=== PATIENT | male | born 1960 | race African-American/Black ===

== ENCOUNTER 2016-09-24 15:59 | Emergency (ER) | payer MEDICAID ==
[2016-09-24 16:48] LABS: BASOPHILS 0.1 % (0.0-2.0); HEMOGLOBIN 9.8 g/dL (13.5-17.5); IMMATURE GRANULOCYTES 0.2 % (0-5); LYMPHOCYTES 20.1 % (15-50); MCH 24.6 pg (26.0-34.0); MCHC 32.7 g/dL (31.0-37.0); MCV 75.4 fL (80.0-100.0); MEAN PLATELET VOLUME 11.9 fL (7.4-10.4); MONOCYTES 8.3 % (2-11); NEUTROPHILS 69.3 % (40-80); PLATELET COUNT 259 10x3/uL (130-400); RBC 3.98 10x6/uL (4.20-6.10); RDW 16.1 % (11.5-14.5); WBC 9.5 10x3/uL (4.8-10.8)
[2016-09-24 17:09] LABS: ALBUMIN 2.8 g/dL (3.4-5.0); ALKALINE PHOSPHATASE 90 U/L (46-116); ALT (SGPT) 68 U/L (10-68); CALC OSMOLALITY 291 mosm/kg (275-300); CALCIUM 9.2 mg/dL (8.5-10.1); CARBON DIOXIDE 27.6 mmol/L (21.0-32.0); CHLORIDE - SERUM 110 mmol/L (98-107); GLUCOSE 108 mg/dL (74-106); SODIUM 146 mmol/L (136-145); UREA NITROGEN 13 mg/dL (7-18); eGFR NON AFRICAN AMERICAN 81 mL/min (90-120)
[2016-09-24 17:14] LABS: POTASSIUM - SERUM 2.9 mmol/L (3.5-5.1)
[2016-11-15 10:29] VITALS: BMI 26.5
== END 2016-09-24 18:20 | disposition home or self-care (01) ==
LOC: D.ER 15:59
PROVIDERS: Emergency Medicine
DX: R41.82 Altered mental status, unspecified (principal); E87.6 Hypokalemia; E88.9 Metabolic disorder, unspecified; I10 Essential (primary) hypertension; E11.9 Type 2 diabetes mellitus without complications; Z79.4 Long term (current) use of insulin

== ENCOUNTER 2016-10-11 17:53 | Observation (INO) | payer MEDICAID ==
[~2016-10-11] VITALS: Ht 180.3 cm; Wt 74.8 kg
[2016-10-11 18:38] LABS: BASOPHILS 0.1 % (0.0-2.0); EOSINOPHILS 0.7 % (0-7); HEMATOCRIT 27.9 % (42.0-54.0); HEMOGLOBIN 8.7 g/dL (13.5-17.5); IMMATURE GRANULOCYTES 0.1 % (0-5); LYMPHOCYTES 17.7 % (15-50); MCH 24.4 pg (26.0-34.0); MCHC 31.2 g/dL (31.0-37.0); MCV 78.4 fL (80.0-100.0); MONOCYTES 5.6 % (2-11); NEUTROPHILS 75.8 % (40-80); RBC 3.56 10x6/uL (4.20-6.10); RDW 18.5 % (11.5-14.5); WBC 8.5 10x3/uL (4.8-10.8)
[2016-10-11 18:39] LABS: PLATELET COUNT 195 10x3/uL (130-400)
[2016-10-11 18:55] LABS: BILIRUBIN - TOTAL 0.2 mg/dL (0.2-1.3); CALCIUM 9.5 mg/dL (8.5-10.1); CARBON DIOXIDE 23.1 mmol/L (21.0-32.0); CREATININE - SERUM 1.5 mg/dL (0.6-1.3); POTASSIUM - SERUM 5.1 mmol/L (3.5-5.1); PROTEIN - SERUM 7.9 g/dL (6.4-8.2)
[2016-10-11 20:30] LABS: APPEARANCE CLEAR (CLEAR); BILIRUBIN NEGATIVE (NEGATIVE); COLOR YELLOW (YELLOW); GLUCOSE NEGATIVE (NEGATIVE); KETONE NEGATIVE (NEGATIVE); LEUKOCYTE ESTERASE NEGATIVE (NEGATIVE); NITRITE NEGATIVE (NEGATIVE); PROTEIN NEGATIVE (NEGATIVE); SPECIFIC GRAVITY 1.015 (1.005-1.020); UROBILINOGEN NORMAL (NORMAL)
[2016-10-11 20:37] LABS: UDS - AMPHET NEGATIVE QUAL (NEGATIVE); UDS - BARB NEGATIVE QUAL (NEGATIVE); UDS - BENZO NEGATIVE QUAL (NEGATIVE); UDS - COCAINE NEGATIVE QUAL (NEGATIVE); UDS - METH NEGATIVE QUAL (NEGATIVE); UDS - OPIATE NEGATIVE QUAL (NEGATIVE); UDS - PCP NEGATIVE QUAL (NEGATIVE); UDS - THC NEGATIVE QUAL (NEGATIVE)
[2016-10-11 22:07] LABS: % SATURATION 15 % (15-55); IRON 59 ug/dl (35-150); TOTAL IRON BIND CAPACITY 370 ug/dl (260-445); UNSAT IRON BIND CAPACITY 311 ug/dl (150-375)
--- NOTE | 2016-10-12 00:20 | NUR ---
REC'D PER STRETCHER FROM ER DEPT A 56 Y/O B/M TO ROOM 2230 PER SERVICES WITH DX. ALTERED MENTAL STATUS CHANGES.SALINE LOCK PATENT RT ARM. PLACED ON BED ALARM BOX. SR UP X2.RESPONDS TO VERBAL STIMULI CONFUSED. WILL NOT FOLLOW COMMANDS CLOSES EYES WHEN QUESTIONS ASKED.
[2016-10-12 01:19] VITALS: BP 152/101; BMI 23.0
--- NOTE | 2016-10-12 02:00 | NUR ---
EYES CLOSED RESPIRATIONS WITH EASE AND UNLABORED.
[2016-10-12] MEDS ORDERED: HYDRALAZINE HCL50 MG PO (02:01)
[2016-10-12] MEDS ORDERED: ZYPREXA5 MG PO (02:02)
[2016-10-12] MEDS ORDERED: CATAPRES TTS-20.2 MG TOPICAL (02:03)
[2016-10-12] MEDS ORDERED: FLOMAX0.4 MG PO (02:04)
[2016-10-12] MEDS ORDERED: [UNRECOGNIZED DRUG - OTHER] (02:05)
[2016-10-12] MEDS ORDERED: NORVASC10 MG PO (02:06)
[2016-10-12] MEDS ORDERED: ISOSORBIDE MONO30 M1 PO (02:06)
[2016-10-12] MEDS ORDERED: PLAVIX75 MG PO (02:07)
[2016-10-12] MEDS ORDERED: LUMIGAN 0.01%2.5 ML EACH EYE (02:08)
[2016-10-12] MEDS ORDERED: GLUCOPHAGE1000 MG PO (02:08)
[2016-10-12] MEDS ORDERED: PRAVACHOL40 MG PO (02:09)
--- NOTE | 2016-10-12 03:30 | NUR ---
NS STARTED AT 75CC'S/HR
[2016-10-12 04:00] VITALS: BP 149/58
[2016-10-12 05:36] LABS: BASOPHILS 0.1 % (0.0-2.0); EOSINOPHILS 1.5 % (0-7); HEMATOCRIT 26.5 % (42.0-54.0); HEMOGLOBIN 8.6 g/dL (13.5-17.5); IMMATURE GRANULOCYTES 0.1 % (0-5); LYMPHOCYTES 24.3 % (15-50); MCH 25.1 pg (26.0-34.0); MCHC 32.5 g/dL (31.0-37.0); MCV 77.3 fL (80.0-100.0); MONOCYTES 7.2 % (2-11); NEUTROPHILS 66.8 % (40-80); PLATELET COUNT 183 10x3/uL (130-400); RBC 3.43 10x6/uL (4.20-6.10); RDW 18.5 % (11.5-14.5); WBC 8.6 10x3/uL (4.8-10.8)
--- NOTE | 2016-10-12 06:00 | NUR ---
BLOOD GLUCOSE WITH LAB =83 NO COVERAGE NEEDED.
[2016-10-12 06:27] LABS: CALCIUM 9.9 mg/dL (8.5-10.1); CARBON DIOXIDE 23.6 mmol/L (21.0-32.0); POTASSIUM - SERUM 4.6 mmol/L (3.5-5.1)
[2016-10-12 06:34] LABS: CREATININE - SERUM 1.1 mg/dL (0.6-1.3)
[2016-10-12 08:13] VITALS: BP 177/59
--- NOTE | 2016-10-12 09:30 | NUR ---
PATIENT UP TO SHOWER BY PROJECT LEADER AT THIS TIME. CALL LIGHT WITHIN REACH.
--- NOTE | 2016-10-12 11:45 | NUR ---
IV RESTARTED BY STUDENT AND INSTRUCTOR AT THIS TIME X 1 STICK. PATIENT TOLERATED WITH SMALL AMOUNT OF PAIN. CALL LIGHT WITHIN REACH.
[2016-10-12 12:18] VITALS: BP 158/71
[2016-10-12 13:16] VITALS: Ht 180.3 cm; Wt 74.8 kg
--- NOTE | 2016-10-12 14:53 | NUR ---
PATIENT PULLED CATHETER OUT. BULB STILL INFLATED. RED URINE TO PAD ON BED. PATIENT CONFUSED AND STATED THAT HE WAS GOING TO KILL ME WHEN HE GETS OUT OF HERE. IV INTACT. CALL LIGHT WITHIN REACH.
--- NOTE | 2016-10-12 15:14 | NUR ---
PATIENT REFUSES VS AT THIS TIME.
--- NOTE | 2016-10-12 16:20 | NUR ---
PATIENT PULLED IV OUT AGAIN. REFUSED FOR IT TO BE RESTARTED. CALL LIGHT WITHIN REACH.
[2016-10-12 19:00] VITALS: BP 144/77
[2016-10-12 19:11] LABS: ANION GAP 15.4 mmol/L (8-16); CALCIUM 9.1 mg/dL (8.5-10.1); CARBON DIOXIDE 24.4 mmol/L (21.0-32.0); CREATININE - SERUM 1.2 mg/dL (0.6-1.3); POTASSIUM - SERUM 4.8 mmol/L (3.5-5.1)
[2016-10-13 04:00] VITALS: BP 149/74
[2016-10-13 06:55] LABS: BASOPHILS 0.2 % (0.0-2.0); EOSINOPHILS 2.1 % (0-7); HEMATOCRIT 25.6 % (42.0-54.0); HEMOGLOBIN 8.1 g/dL (13.5-17.5); IMMATURE GRANULOCYTES 0.2 % (0-5); LYMPHOCYTES 33.2 % (15-50); MCH 24.4 pg (26.0-34.0); MCHC 31.6 g/dL (31.0-37.0); MCV 77.1 fL (80.0-100.0); MONOCYTES 7.6 % (2-11); NEUTROPHILS 56.7 % (40-80); PLATELET COUNT 167 10x3/uL (130-400); RBC 3.32 10x6/uL (4.20-6.10); RDW 18.2 % (11.5-14.5); WBC 6.6 10x3/uL (4.8-10.8)
[2016-10-13 07:05] LABS: ALBUMIN 3.1 g/dL (3.4-5.0); ANION GAP 14.1 mmol/L (8-16); BILIRUBIN - TOTAL 0.24 mg/dL (0.2-1.3); CALCIUM 9.6 mg/dL (8.5-10.1); CARBON DIOXIDE 24.9 mmol/L (21.0-32.0); CREATININE - SERUM 1.1 mg/dL (0.6-1.3); PROTEIN - SERUM 7.8 g/dL (6.4-8.2)
[2016-10-13 08:50] VITALS: BP 157/68
[2016-10-13] MEDS ORDERED: LIBRIUM25 MG PO (11:30)
--- NOTE | 2016-10-13 13:28 | NUR ---
Patient Name: FIDE ATWOOD Admission Status: ER Accout number: [id number] Admission Date: 10-11-2016 : 1960 Admission Diagnosis: Attending: GAYLE Current LOS: 2 Anticipated DC Date: 10-13-2016 Planned Disposition: Home Primary Insurance: MEDICAID [place] Discharge Planning Comments: CM MET WITH PATIENT AND HIS MOM (CYNDI) REGARDING HIS PLANS FOR DISCHARGE AND NEEDS. PATIENT STATED HE HAD THE SHAKES BEFORE COMING TO HOSPITAL. MOTHER STATED HE HAS HAD PROBLEMS WITH SUGAR BEFORE. HOME HEALTH WAS AT HIS HOME DURING HIS SPELL AND RECOMMENDED COMING TO HOSPITAL. PATIENTS PCP IS DR. MOORE AND PHARMACY IS [facility]. PATIENT IS CURRENT WITH [facility] WITH PHYSICAL THERAPY. MOTHER STATES SHE COOKS FOR HER SON DAILY AND IS THERE WITH HIM DURING HIS MEALS. MOTHER STATED HE HAS STOPPED DRINKING FOR 3 MONTHS NOW. INFORMATION REGARDING TREATMENT FACILITIES FOR ALCOHOL WAS GIVEN TO MOTHER AND SHE APPRECIATED IT STATING "I WILL TAKE THESE JUST IN CASE I MIGHT NEED THEM." CM WILL CONTINUE TO FOLLOW PATIENT WITH D/C NEEDS AND PLANS. PCP DR[facility] TER[facility] [phone] CYNID (LES) [phone] Match Maker: Rebecca Darden Is the patient Alert and Oriented? Yes 0 * How many steps to enter\\exit or inside your home? 3 0 * PCP DR. MOORE 0 * Pharmacy [facility] 0 * Preadmission Environment Home Alone 0 * ADLs Independent 0 * Equipment Walker 0 * List name and contact numbers for known caregivers / representatives who currently or will assist patient after discharge: CYNDI PARKER) [phone] 0 * Community resources currently utilized None 0 * Additional services required to return to the preadmission environment? No 0 * Can the patient safely return to the preadmission environment? Yes 0 * Has this patient been hospitalized within the prior 30 days at any hospital? Yes 0 Grand Total: 0
--- NOTE | 2016-10-13 13:29 | NUR ---
DISCHARGE PAPER AND INSTRUCTIONS GIVEN TO PATIENT AND SPOUSE, QUESTIONS ANSWERED, DISCHARGED PER WC WITH BELONGINGS
== END 2016-10-13 13:31 | disposition home or self-care (01) ==
LOC: D.ER 17:53 → D.MS 21:36 → OBSVTIME 21:36 → D.MS 21:36
PROVIDERS: Emergency Medicine; ADMIT Family Medicine Adult Medicine
DX: R41.82 Altered mental status, unspecified (principal); F10.20 Alcohol dependence, uncomplicated; M54.9 Dorsalgia, unspecified; Z91.19 Patient's noncompliance with other medical treatment and regimen; I10 Essential (primary) hypertension; I25.10 Atherosclerotic heart disease of native coronary artery without angina pectoris; F17.200 Nicotine dependence, unspecified, uncomplicated; E87.0 Hyperosmolality and hypernatremia; D64.9 Anemia, unspecified; E11.65 Type 2 diabetes mellitus with hyperglycemia; Z79.4 Long term (current) use of insulin; N28.9 Disorder of kidney and ureter, unspecified

== ENCOUNTER 2016-11-14 12:15 | Inpatient (IN) | payer MEDICAID ==
[~2016-11-14] VITALS: Ht 180.3 cm; Wt 78.6 kg
[~2016-11-14 12:15] MED LIST: CATAPRES TTS-20.2 MG TOPICAL; FLOMAX0.4 MG PO; GLUCOPHAGE1000 MG PO; HYDRALAZINE HCL50 MG PO; ISOSORBIDE MONO30 M1 PO; LIBRIUM25 MG PO; LUMIGAN 0.01%2.5 ML EACH EYE; NORVASC10 MG PO; PLAVIX75 MG PO; PRAVACHOL40 MG PO; ZYPREXA5 MG PO; [UNRECOGNIZED DRUG - OTHER]
[2016-11-14 12:53] LABS: BASOPHILS 0.1 % (0.0-2.0); EOSINOPHILS 2.1 % (0-7); HEMOGLOBIN 8.1 g/dL (13.5-17.5); IMMATURE GRANULOCYTES 0.2 % (0-5); MCH 24.8 pg (26.0-34.0); MCHC 31.2 g/dL (31.0-37.0); MCV 79.5 fL (80.0-100.0); MONOCYTES 4.4 % (2-11); NEUTROPHILS 74.2 % (40-80); PLATELET COUNT 173 10x3/uL (130-400); RBC 3.27 10x6/uL (4.20-6.10); RDW 20.1 % (11.5-14.5)
[2016-11-14 13:18] LABS: ALBUMIN 3.1 g/dL (3.4-5.0); ALKALINE PHOSPHATASE 135 U/L (46-116); ALT (SGPT) 25 U/L (10-68); BILIRUBIN - TOTAL 0.16 mg/dL (0.2-1.3); CALC OSMOLALITY 304 mosm/kg (275-300); CALCIUM 9.2 mg/dL (8.5-10.1); CARBON DIOXIDE 20.7 mmol/L (21.0-32.0); CREATININE - SERUM 1.4 mg/dL (0.6-1.3); GLUCOSE 116 mg/dL (74-106); POTASSIUM - SERUM 5.4 mmol/L (3.5-5.1); PROTEIN - SERUM 7.3 g/dL (6.4-8.2); SODIUM 151 mmol/L (136-145); UREA NITROGEN 24 mg/dL (7-18); eGFR NON AFRICAN AMERICAN 55 mL/min (90-120)
[2016-11-14 13:20] LABS: ALCOHOL - BLOOD (MEDICAL) < 3.0 mg/dL (0.0-10.0); CHLORIDE - SERUM 120 mmol/L (98-107)
[2016-11-14 15:36] LABS: APPEARANCE CLEAR (CLEAR); BILIRUBIN NEGATIVE (NEGATIVE); COLOR YELLOW (YELLOW); GLUCOSE NEGATIVE (NEGATIVE); KETONE NEGATIVE (NEGATIVE); LEUKOCYTE ESTERASE NEGATIVE (NEGATIVE); NITRITE NEGATIVE (NEGATIVE); PROTEIN NEGATIVE (NEGATIVE); SPECIFIC GRAVITY 1.015 (1.005-1.020); UROBILINOGEN NORMAL (NORMAL)
[2016-11-14 15:48] LABS: UDS - AMPHET NEGATIVE QUAL (NEGATIVE); UDS - BARB NEGATIVE QUAL (NEGATIVE); UDS - BENZO POSITIVE QUAL (NEGATIVE); UDS - COCAINE NEGATIVE QUAL (NEGATIVE); UDS - METH NEGATIVE QUAL (NEGATIVE); UDS - OPIATE NEGATIVE QUAL (NEGATIVE); UDS - PCP NEGATIVE QUAL (NEGATIVE); UDS - THC NEGATIVE QUAL (NEGATIVE)
--- NOTE | 2016-11-14 18:32 | NUR ---
RECEIVED REPORT FROM ER NURSE. PT HAS CONSULT FOR [facility]. FAXED CONSULT DOWN TO DETENTION
--- NOTE | 2016-11-14 18:53 | NUR ---
Patient Name: FIDE QUAN Admission Status: ER Accout number: [id number] Admission Date: 11-14-2016 : 1960 Admission Diagnosis: Hypernatremia, AMS Attending: MALVIN Current LOS: 1 Anticipated DC Date: 11-17-2016 Planned Disposition: Retirement Facility Primary Insurance: MEDICAID [place] Discharge Planning Comments: Cm spoke to patient's mother due to AMS of patient. Patient mother reports patient has been very confused for the past week or so. He has been weak and not able to care for himself for the past 4 months now. She goes to his home every am to get him up out of bed, fixes his breakfast, stays till he takes a nap then comes back and stays with him till he goes to bed at night. She stated the patient is not able to care for himself and needs placement in the prison. Patient currently has [facility] for nursing and PT. CM informed her that case management could help her with this. She will call and speak to case management on Tuesday. CM will continue to follow and will assist with dc plans/needs. Farm Crew Member: Zenaida Fox RN, [facility] [phone] Is the patient Alert and Oriented? No * How many steps to enter\exit or inside your home? three * PCP Dr. Gould * Pharmacy [facility] * Preadmission Environment Home with Family * ADLs Partial Dependent * Partial ADLs (Assistance needed) Bathing Dressing Medication Management * Equipment Rolling Walker * List name and contact numbers for known caregivers / representatives who currently or will assist patient after discharge: Amy Quan - mother - [phone] * Community resources currently utilized Home Health * Please name any agencies selected above. [facility] * Additional services required to return to the preadmission environment? Yes * Can the patient safely return to the preadmission environment? No * Has this patient been hospitalized within the prior 30 days at any hospital? No
--- NOTE | 2016-11-14 18:55 | NUR ---
PT TO ROOM VIA WHEELCHAIR. SEVERELY CONFUSED. DEREK MAT ON
--- NOTE | 2016-11-14 18:57 | NUR ---
PT IS SEVERLY CONFUSED. QUICK START DONE. PT IS NOT AWARE OF ANY MEDICATION HE IS ON.
[2016-11-14 18:58] VITALS: BP 128/57
[2016-11-15] VITALS (7 sets, daily range): BP systolic 126–147; BP diastolic 46–80; Ht 180.3 cm; Wt 78.6 kg
--- NOTE | 2016-11-15 00:30 | NUR ---
BOBBIN COLLECTOR AT BEDSIDE FOR VS. NEEDS ADDRESSED AT THIS TIME. CALL LIGHT IN REACH. WILL CONT TO MONITOR.
[2016-11-15 06:01] LABS: BASOPHILS 0.1 % (0.0-2.0); HEMATOCRIT 26.9 % (42.0-54.0); HEMOGLOBIN 8.4 g/dL (13.5-17.5); IMMATURE GRANULOCYTES 0.1 % (0-5); LYMPHOCYTES 23.9 % (15-50); MCH 24.6 pg (26.0-34.0); MCHC 31.2 g/dL (31.0-37.0); MCV 78.7 fL (80.0-100.0); MONOCYTES 5.4 % (2-11); NEUTROPHILS 67.5 % (40-80); PLATELET COUNT 166 10x3/uL (130-400); RBC 3.42 10x6/uL (4.20-6.10); RDW 20.3 % (11.5-14.5); WBC 7.2 10x3/uL (4.8-10.8)
[2016-11-15 06:13] LABS: ANION GAP 15.7 mmol/L (8-16); CALCIUM 9.2 mg/dL (8.5-10.1); CARBON DIOXIDE 21.3 mmol/L (21.0-32.0); CREATININE - SERUM 1.1 mg/dL (0.6-1.3)
--- NOTE | 2016-11-15 12:00 | NUR ---
PT SITTING UP IN BED EATING LUNCH. PT IS PLEASANTLY CONFUSED. PT STATES "I THINK IM AT HOME WITH MY GIRLFRIEND YULISSA" REORIENTED PT TO PLACE AND SITUATION. PT VERBALIZED UNDERSTANDING AND DENIES ANY FURTHER NEEDS. CL IN REACH, BUILT IN BED ALARM ON. WILL CPOC.
[2016-11-15 14:17] LABS: % SATURATION 12 % (15-55); IRON 43 ug/dl (35-150); TOTAL IRON BIND CAPACITY 358 ug/dl (260-445); UNSAT IRON BIND CAPACITY 315 ug/dl (150-375)
[2016-11-15 16:27] LABS: HEMATOCRIT 24.5 % (42.0-54.0); HEMOGLOBIN 7.8 g/dL (13.5-17.5)
--- NOTE | 2016-11-15 16:59 | NUR ---
Patient Name: FIDE ATWOOD Encounter No: [id number] : 1960 Primary Insurance: MEDICAID [facility] DC Date: 11-17-2016 Planned Disposition: [facility] Facility External Planned Provider: [facility], MEDICAID SKILLED NURSING CARE BED DCP follow-up note: CM MET WITH PT IN ROOM TO DISCUSS DISCHARGE NEEDS AND PLANNING. PT INITIALLY REPORTS BEING INDEPENDENT AT HOME WITH NO ASSISTANCE. PT REPORTED NEVER BEING IN A SHELTER FACILITY. PT REPORTS HIS GIRLFRIEND, JOSE, LIVES WITH HIM. PT REPORTS PLAN TO GO HOME. CM EXPLAINED TO PT THAT HE HAS BEEN VERY CONFUSED AND THAT IS NOT A SAFE PLAN. PT REPORTS HIS MOTHER HELPS HIM TO MAKE DECISIONS AND DIRECTED CM TO CALL HER. LILIANE CALLED CYNDI ANGELIC, , FROM PT'S ROOM. CYNDI REPORTS PT DOES LIVE ALONE AT NIGHT AND SHE HAS BEEN STAYING WITH PT DURING THE DAY. PT HAS CONTROL OF HIS CHECK AND ONCE HE GETS PAID, HE DRAWS OUT HIS MONEY AND GIVES TO CYNDI TO PAY HIS BILLS. PT HAS BEEN STAYING ALONE AT NIGHT BUT HAS RECENTLY BEEN UNABLE TO REMEMBER WHERE THE BATHROOM IS AT IN THE HOUSE AND WOULD CLAIM HE IS NOT AT HIS HOUSE WHEN HE WAS. CYNDI DOES NOT FEEL THAT PT IS SAFE TO LIVE HOME ALONE ANY LONGER. PT WAS IN [facility] IN JULY OF 2016, WAS HAPPY WITH HIS CARE FOR ONE MONTH AND THEN DECIDED TO GO HOME. PT HAS NOT SUFFERED WITH SEIZURES, HAS NO KNOWN MENTAL ILLNESS NOR HAS HE RECEIVED SERVICES OR BEEN DIAGNOSED MENTALLY RETARDED. PT ASKED FOR REFERRAL TO BE SENT TO [facility]ADE TO [facility] IF HE HAS BEEN THERE BEFORE HIS MOTHER STATES. CHOICE SIGNED. CM CALLED [facility], , PROVIDED REFERRAL TO MING ROMERO. CM FAXED REFERRAL TO TRADE TO [facility] AT [phone]. CM WAITING ADMISSION DETERMINATION FROM [facility] REGARDING SKILLED NURSING CARE FOR PT. Brooks Guillen, CASE MANAGEMENT
--- NOTE | 2016-11-15 17:01 | NUR ---
PTS HGB 7.8. HERE AND GAVE VERBAL ORDER FOR 2 UNITS OF PRBCS. WILL GET CONSENTS AND CONTINUE WITH ORDER.
--- NOTE | 2016-11-15 18:30 | NUR ---
INITIATED PTS BLOOD TRANSFUSION. VSS AND BEING MONITERED Q15MIN PER PROTOCOL. BLOOD TRANSFUSING VIA R.FA PIV WITH DRSG CDI AND SWAB CAPS IN USE. NO REACTION NOTED WITH FIRST 15 MINS OF BLOOD TRANSFUSION. PT DENIES ANY CURRENT PAIN OR NEEDS. CL IN REACH, BED IN LOWEST, SIDE RAILS X2, WILL CPOC.
--- NOTE | 2016-11-15 19:11 | NUR ---
SPOKE WITH AND HE IS AWARE OF CONSULT. SHIFT REPORT GIVEN TO NIGHT NURSE, NO FURTHER NEEDS.
--- NOTE | 2016-11-15 19:45 | NUR ---
ASSESSMENT COMPLETE, PT ALERT, ORIENTED TO NAME. RESPERATIONS EVEN AND UNLABORED. IV TO RIGHT FOREARM WITH PRBCs INFUSING. SITE CLEAN AND DRY. VITALS STABLE. WILL CONT TO MONITOR.
--- NOTE | 2016-11-15 21:05 | NUR ---
CARD FEEDER AT BED SIDE, PT INCONTINENT OF URINE. BATH AND LINEN CHANGE COMPLETE. REPOSITIONED IN BED FOR COMFORT.
--- NOTE | 2016-11-15 21:35 | NUR ---
HS MEDS GIVEN WITH FRESH ICE WATER. BS 118, NO COVERAGE NEEDED. PRBCS INFUSING, VITALS STABLE. NO S/S ADVERSE REACTION NOTED.
--- NOTE | 2016-11-15 22:15 | NUR ---
PRBCS FINISHED INFUSING, LINE FLUSHING WITH NS, VITALS STABLE. NO S/S ADVERSE REACTIONS NOTED.
--- NOTE | 2016-11-15 23:54 | NUR ---
SECOND UNIT OF PRBCs INFUSING, VITALS STABLE.
[2016-11-16] VITALS: BP 133/71
--- NOTE | 2016-11-16 01:04 | NUR ---
RESTING WITH EYES CLOSED, RESPERATIONS EVEN, NO S/S DISTRESS NOTED.
--- NOTE | 2016-11-16 02:48 | NUR ---
SECOND UNIT OF PRBCs FINISHED INFUSING, VITALS STABLE. NO S/S ADVERSE REACTIONS NOTED.
[2016-11-16 04:00] VITALS: BP 146/63
[2016-11-16 04:36] LABS: HEMATOCRIT 29.2 % (42.0-54.0)
[2016-11-16 04:47] LABS: HEMOGLOBIN 9.9 g/dL (13.5-17.5)
[2016-11-16 05:16] LABS: ALBUMIN 2.9 g/dL (3.4-5.0); ANION GAP 15.8 mmol/L (8-16); BILIRUBIN - TOTAL 0.63 mg/dL (0.2-1.3); CALCIUM 9.1 mg/dL (8.5-10.1); CARBON DIOXIDE 21.4 mmol/L (21.0-32.0); CREATININE - SERUM 1.1 mg/dL (0.6-1.3); POTASSIUM - SERUM 5.2 mmol/L (3.5-5.1); PROTEIN - SERUM 7.2 g/dL (6.4-8.2)
--- NOTE | 2016-11-16 06:01 | NUR ---
GROCERY DEPARTMENT MANAGER MEDS GIVEN WITH FRESH WATER. PT TOLERATED WELL.
[2016-11-16 07:47] VITALS: BP 129/65
[2016-11-16 08:21] LABS: FOLATE (FOLIC ACID) - SERUM 2.9 ng/mL (>3.0)
--- NOTE | 2016-11-16 08:41 | NUR ---
SL PT TO LEAVE FOR MRI. PT DENIES ANY CURRENT PAIN OR NEEDS. CL IN REACH. WILL CPOC.
--- NOTE | 2016-11-16 09:24 | NUR ---
PT BACK FROM MRI AND TRANSFERRED INTO BED. DENIES ANY CURRENT PAIN OR NEEDS. CL IN REACH, BED IN LOWEST, SIDE RAILS X2. WILL CPOC.
[2016-11-16 11:06] VITALS: BP 128/62
--- NOTE | 2016-11-16 11:40 | NUR ---
Patient Name: FIDE ATWOOD Encounter No: [id number] : 1960 Primary Insurance: MEDICAID [place] Anticipated DC Date: 11-17-2016 Planned Disposition: [facility] Facility External Planned Provider: [facility], [facility] MEDICAID BED DCP follow-up note: CM MET WITH MING ROMERO OF [facility] AT NURSES STATION; MING HAS MET WITH PT AND THEY ARE IN PROCESS OF EVALUATING PT AND CONSIDERING FOR ADMISSION FOR TECHNICAL PUBLICATIONS MANAGER CARE AT [facility]. MING WILL NEED LAB RESULTS WHEN RECEIVED REGARDING STAPH. CM WAITING LAB RESULTS AND WILL FAX TO [facility] UPON COMPLETION. CM WAITING ADMISSION DETERMINATION FROM [facility] FOR TECHNICAL PUBLICATIONS MANAGER CARE. Brooks Guillen, CASE MANAGEMENT
--- NOTE | 2016-11-16 12:21 | NUR ---
PTS MOTHER AT BEDSIDE VISITING. PT EATING LUNCH. NO CURRENT NEEDS. WILL CPOC.
--- NOTE | 2016-11-16 13:06 | NUR ---
PT PULLED OUT IV FOR A THIRD TIME. HAMILTON ORTIZ APN VERBALLY GAVE OKAY TO LEAVE PIV OUT FOR NOW.
[2016-11-16 14:07] LABS: HEMATOCRIT 31.3 % (42.0-54.0); HEMOGLOBIN 10.6 g/dL (13.5-17.5)
[2016-11-16 16:12] VITALS: BP 108/56
--- NOTE | 2016-11-16 16:32 | NUR ---
PT ATTEMPTED GETTING OOB STATING "GET THIS BLOOD ITS NOT MY BLOOD" CHANGED LINENS R/T A DROP OF BLOOD FROM WHERE HE PULLED HIS IV OUT EARLIER. PT STILL PLEASANTLY CONFUSED HOWEVER PULLED HAND AWAY AND REFUSED FSBS.
[2016-11-17] VITALS (13 sets, daily range): BP systolic 116–171; BP diastolic 49–86
[2016-11-17 06:16] LABS: RAPID PLASMA REAGIN Non Reactive (Non Reactive)
--- NOTE | 2016-11-17 06:50 | NUR ---
MEDITECH DOWN THROUGHOUT THE NIGHT, SEE PAPER NARRATIVE.
[2016-11-17 07:45] LABS: HEMATOCRIT 29.5 % (42.0-54.0)
[2016-11-17 08:09] LABS: ALBUMIN 2.9 g/dL (3.4-5.0); ALKALINE PHOSPHATASE 126 U/L (46-116); ALT (SGPT) 20 U/L (10-68); BILIRUBIN - TOTAL 0.36 mg/dL (0.2-1.3); CALC OSMOLALITY 284 mosm/kg (275-300); CALCIUM 9.6 mg/dL (8.5-10.1); CARBON DIOXIDE 23.9 mmol/L (21.0-32.0); CHLORIDE - SERUM 111 mmol/L (98-107); CREATININE - SERUM 0.8 mg/dL (0.6-1.3); GLUCOSE 89 mg/dL (74-106); POTASSIUM - SERUM 4.8 mmol/L (3.5-5.1); PROTEIN - SERUM 7.3 g/dL (6.4-8.2); SODIUM 143 mmol/L (136-145); UREA NITROGEN 14 mg/dL (7-18); eGFR NON AFRICAN AMERICAN > 90 mL/min (90-120)
--- NOTE | 2016-11-17 09:00 | NUR ---
BUSINESS QUALITY ASSURANCE ANALYST NOTIFIED ME THAT SHE WASNT ABLE TO GET PATIENTS TEMPERATURE. UPON ASSESSING PT HE IS ICE COLD TO THE TOUCH. RECTAL TEMP ATTEMPTED BUT READ "TOO LOW" VS 143/60 HR 40 TELEMETRY APPLIED AND RUNNING SINUSBRADY. DEL THORNE APPLIED AND PAGED. 20 GUAGE PIV INSERTED INTO THE R.HAND. PTS BEEN CONFUSED SO MENTAL STATUS IS VERY HARD TO DISTINGUISH FROM BASELINE OR IF THIS IS BASELINE. WILL CTM CLOSELY.
[2016-11-17 09:11] LABS: BASOPHILS 0.2 % (0.0-2.0); EOSINOPHILS 1.6 % (0-7); LYMPHOCYTES 26.7 % (15-50); MCH 26.5 pg (26.0-34.0); MCHC 33.6 g/dL (31.0-37.0); MCV 78.9 fL (80.0-100.0); MONOCYTES 4.2 % (2-11); NEUTROPHILS 67.3 % (40-80); RBC 3.74 10x6/uL (4.20-6.10); RDW 19.6 % (11.5-14.5); WBC 6.2 10x3/uL (4.8-10.8)
[2016-11-17 09:13] LABS: PLATELET COUNT 109 10x3/uL (130-400)
--- NOTE | 2016-11-17 10:01 | NUR ---
STAT ORDERS GIVEN AND ORDERED IN COMPUTER. GETTING EKG AND LAB NOW. PT STILL RESTING IN BED QUIETLY DENIES ANY CURRENT PAIN OR NEEDS.
--- NOTE | 2016-11-17 10:10 | NUR ---
STILL UNABLE TO GET A RECTAL TEMP EVEN AFTER DELNereida THORNE ON PT. TEMPORAL READING 95.4. CALLED AND HE IS AWARE BUT IS THINKING ITS A FALSE READING. CALLED [facility]ENTRAL FOR STAT GLASS THERMOMETER AND WILL HAVE SOMEONE ELSE HELP ASSESS PT AND TRY TO GET ACCURATE TEMP.
[2016-11-17 10:48] LABS: CKMB 1.7 U/L (0.0-3.6); CREATINE KINASE 55 UL (21-232)
--- NOTE | 2016-11-17 10:49 | NUR ---
RECTAL TEMP 89.3 CHECKED X2 WITH CHARGE NURSE.
[2016-11-17 10:56] LABS: TROPONIN-I 0.192 ng/mL (0.000-0.060)
[2016-11-17 11:12] LABS: INR 1.02 (0.85-1.17); PROTIME 13.3 SECONDS (11.6-15.0)
[2016-11-17 11:13] LABS: APTT 42.2 SECONDS (22.8-39.4)
--- NOTE | 2016-11-17 11:29 | NUR ---
HAMILTON ORTIZ GAVE VERBAL ORDERS TO TRANSFER PT TO ICU. CALLED CARD PLACER FOR A BED, AWAITING PLACEMENT.
[2016-11-17 11:35] LABS: T4 THYROXINE 7.3 ug/dL (4.7-13.3); THYROID STIMULATING HORMONE 8.68 uIU/mL (0.36-3.74)
--- NOTE | 2016-11-17 11:57 | NUR ---
PATIENT ARRIVED TO THE FLOOR VIA BED TO ROOM 2303 BUT WAS THEN MOVED TO 2307 SECONDARY TO ISOLATION STATUS, FROM MED 2. HE WAS ALERT. ORIENTED TO NAME ONLY. PATIENT REQUIRED MOMENTS TO THINK BEFORE HE WAS ABLE TO ANSWER QUESTIONS. PLACED A 16FR CRITICORE MACEDO PER ORDERS. INITIAL CORE TEMP WAS 31.7 C OR 89.4 F. RECEIVED 123CC OF CLEAR YELLOW URINE. PATIENT WAS PLACE UNDER BEAR HUGGER. WILL MONITOR TEMP. LUNGS CTA, DIMINISHED TO BILATERAL BASES. BOWEL SOUNDS ARE NORMAL ACTIVE. PATIENT DID NOT ANSWER WHEN QUESTIONED ABOUT LAST BOWEL MOVEMENT. PATIENT IS BRADYCARDIC, HYPERTENSIVE. SATS ARE 97% ON ROOM AIR. SKIN LOOKS GOOD. PLACED IN CONTACT ISOLATION SECONDARY TO MRSA IN BLOOD. WAITING ON LAB TO COME AND DRAW ANOTHER SET OF BLOOD CULTURES.
--- NOTE | 2016-11-17 12:39 | NUR ---
Patient Name: FIDE ATWOOD Encounter No: [id number] : 1960 Primary Insurance: MEDICAID [facility] DC Date: 11-19-2016 Planned Disposition: Care Home Facility External Planned Provider: [facility] or [facility], intermediate care Medicaid bed DCP follow-up note: CM RECEIVED CALL FROM MING [facility], , WHO ADVISED THEY CANNOT ACCEPT PT THEY DO NOT HAVE ANY SNF CARE BEDS. CM SPOKE TO PT IN ROOM PRIOR TO LUNCH, ADVISED OF ABOVE, PT REPORTS NO PREFERENCE ON SKILLED FACILITY, WOULD LIKE TO REMAIN IN [place] IF POSSIBLE. CM [facility]ED [email or web address], , NOTIFIED OF NEED FOR SNF PLACEMENT; CM FAXED REFERRAL TO MAIKOL AT [phone]. CM WAITING ADMISSION DETERMINATIONS FROM [facility], [facility] AND [facility] [employer] [facility] FOR VISUAL BASIC DEVELOPER CARE. Brooks Guillen, CASE MANAGEMENT
--- NOTE | 2016-11-17 13:43 | NUR ---
SECONDARY TO JUST GETTING VANCOMYCIN STARTED DUE TO WAITING ON BLOOD CULTURES TO BE DRAWN, SPOKE WITH CRISTINO IN PHARMACY, HE WILL RETIME THE ZOSYN.
[2016-11-17 16:26] LABS: HEMATOCRIT 29.4 % (42.0-54.0); HEMOGLOBIN 9.6 g/dL (13.5-17.5)
--- NOTE | 2016-11-17 16:33 | CN ---
PATIENT NAME:FIDE ATWOOD MEDICAL RECORD: [id number] : [birth year] LOCATION:[id number] ADMIT DATE: 11/14/16 ACCOUNT: [id number] CONSULTING PHYSICIAN: DARLIN MEJÍA MD REFERRING PHYSICIAN: LAINE POTTER MD DATE OF CONSULTATION: 11/15/2016 Consultation Note IDENTIFYING DATA: The patient is 56 years old and he is admitted to the hospital on a voluntary basis. CHIEF COMPLAINT: Altered mental status. HISTORY OF PRESENT ILLNESS: The patient is clearly very impaired. There is little in the way of longitudinal history or records except for an admission a month ago for similar reasons. There is a questionable history of alcohol abuse that is ongoing and a definitive history of alcohol abuse remotely. Supposedly, the patient has family, who live with him, but no one is there at the time of the interview. The patient is trying to be cooperative, but clearly is very impaired. He is hyponatremic, but not in a manner that I would think would cause this situation. Basic laboratory and radiographic findings are negative. ASSESSMENT: Dementia type, uncertain. PLAN: The patient is impaired and I do not see an acute reason forth. I suspect there may be some ongoing substance abuse or alcohol use, but it is very difficult to know exactly how much. I think the patient would benefit from being followed by neurology. I also would say that whatever process is going on unless it is substance-induced, does not appear to be acute. administrative services director should be involved to assist with placement of the patient since in his current situation, he cannot manage independent living. TRANSINT:[id number] Voice Confirmation ID: [id number] DOCUMENT ID: [id number] DARLIN MEJÍA MD at 1633 CC: [id number] DICTATION DATE: 11/15/161939 MEMBERSHIP SALES REPRESENTATIVE: 11/16/16 0106 ADM IN [facility] [address] [place] [address]
--- NOTE | 2016-11-17 17:13 | NUR ---
PATIENT WAS OFF FROM UNDER THE BEAR HUGGER FOR AROUND 10 MINUTES OR SO AND HIS CRITICOR TEMP WAS 94.6 WHEN THIS NURSE ENTERED THE ROOM. PREVIOUS TEMP AT 1630 WAS 96.2. WILL WATCH CLOSER.
--- NOTE | 2016-11-17 19:00 | NUR ---
REPORT RECEIVED AND ASSESSMENT COMPLETED. SEE FLOWSHEET FOR FULL DETAILS. VSS. WILL CONTINUE TO MONITOR.
--- NOTE | 2016-11-17 21:00 | NUR ---
NO CHANGES IN STATUS AT THIS TIME. VSS. WILL MONITOR. PT TEMP 97.[address]. PT VERY CONFUSED. C/O A "LITTLE FELLER" BEHIND HIS BACK. AFRAID TO LAY DOWN BECAUSE HE DOES NOT WANT TO HURT HIM
--- NOTE | 2016-11-17 23:00 | NUR ---
REASSESSMENT COMPLETED. SEE FLOWSHEET. VSS. WILL MONITOR
[2016-11-18] VITALS (23 sets, daily range): BP systolic 107–163; BP diastolic 47–95
--- NOTE | 2016-11-18 01:12 | NUR ---
NO CHANGES IN STATUS AT THIS TIME. VSS. WILL MONITOR
--- NOTE | 2016-11-18 03:00 | NUR ---
REASSESSMENT COMPLETED. SEE FLOWSHEET FOR FULL DETAILS. PT CONTINUES TO BE CONFUSED AND ATTEMPTS TO REMOVE TELEMETRY AND BEAR HUGGER. SAYS HE NEED THE SCISSORS TO CUT THE TAPE OFF OF HIS LEGS ( THERE IS NO TAPE PRESENT) AND THAT THERE ARE BAKERS STUCK BEHIND HIM IN BED. PT ABLE TO STATE NAME AND BIRTHDAY BUT NO OTHER DETAILS IN REGARD TO LOCATION, FAMILY, OR SITUATION.
[2016-11-18 04:13] LABS: BASOPHILS 0.1 % (0.0-2.0); EOSINOPHILS 0.9 % (0-7); HEMATOCRIT 29.6 % (42.0-54.0); HEMOGLOBIN 9.9 g/dL (13.5-17.5); IMMATURE GRANULOCYTES 0.2 % (0-5); LYMPHOCYTES 13.2 % (15-50); MCH 26.5 pg (26.0-34.0); MCHC 33.4 g/dL (31.0-37.0); MCV 79.1 fL (80.0-100.0); MONOCYTES 4.6 % (2-11); PLATELET COUNT 117 10x3/uL (130-400); RBC 3.74 10x6/uL (4.20-6.10)
[2016-11-18 04:21] LABS: WBC 10.5 10x3/uL (4.8-10.8)
[2016-11-18 04:31] LABS: ALBUMIN 2.9 g/dL (3.4-5.0); ANION GAP 15.1 mmol/L (8-16); BILIRUBIN - TOTAL 0.46 mg/dL (0.2-1.3); CARBON DIOXIDE 23.5 mmol/L (21.0-32.0); POTASSIUM - SERUM 4.6 mmol/L (3.5-5.1); PROTEIN - SERUM 7.2 g/dL (6.4-8.2)
[2016-11-18 04:36] LABS: CREATININE - SERUM 1.1 mg/dL (0.6-1.3)
--- NOTE | 2016-11-18 05:09 | NUR ---
Patient resting in bed with eyes open watching TV, breathing is even and unlabored on room air. Denies pain or other needs at this time, all VSS and will continue to monitor.
--- NOTE | 2016-11-18 09:26 | NUR ---
PT AWAKE AND CONFUSED, HAS PULLED GOWN AND BS MONITORING OFF. REPLACED EQUIP AND POSITIONED FOR BREAKFAST 45 DEG UP IN BED. TEMP 98.0, BEAR HUGGAR TURNED OFF. WHILE FEEDING PT BREAKFAST PT DOES INTERMITTENLY COUGH. STRONG COUGH NOTED, FEEDING STOPPED AND KEPT AT 45 DGE UPRIGHT IN BED.
--- NOTE | 2016-11-18 10:02 | NUR ---
NUTRITION MONITORING & EVAL CHART REVIEWED. PT REMAINS IN ISOLATION. NURSING NOTE RE:AM FEEDING. WILL CONTINUE TO PROVIDE DIET PER SPEECH REC'S. RD FOLLOWING
--- NOTE | 2016-11-18 10:20 | NUR ---
DR FERNANDEZ HERE ON ROUNDS. ST DEPRESSION NOTED BY HER ON BS MONITORING, EKG COMPLETED AT BS AND CALLED TO [facility], FAXED BOTH YESTERDAYS EKG ALONG WITH TODAYS EKG AND REC'D CALL BACK FROM [facility] AT DR SANDOVAL'S OFFICE THAT SHE DID REVIEW EKGS WITH DR SANDOVAL.
--- NOTE | 2016-11-18 14:43 | NUR ---
EEG DONE AT BS.
--- NOTE | 2016-11-18 19:30 | NUR ---
ASSESSMENT COMPLETE. S1S2. RR SHALLOW CRACKLES BILATERALLY IN UPPER LOBES; DIMINISHED BILATERALLY IN LOWER LOBES. RADIAL AND PEDAL PULSES PALPATED. SKIN WARM/DRY. PERRLA. PT LETHARGIC. PT HAS SLIGHT DIFFICULTY WITH REMAINING AROUSED. ABLE TO ANSWER QUESTIONS WITH CONSISTANT ASKING AND AROUSING. OCCASIONAL COUGH NOTED.
--- NOTE | 2016-11-18 21:29 | NUR ---
PT HAD SLIGHT DIFFICULTY TAKING MEDICATION. CRUSHED MED INTO PUDDING.
--- NOTE | 2016-11-18 23:15 | NUR ---
REASSESSMENT COMPLETE. NO CHANGES FROM PREVIOUS ASSESSMENT. BRADYCARDIA SHOWING ON MONITOR. TEMP DECREASED WITH DEL HUGGER ON. INCREASED TO MEDIUM ON DEL HUGGER
[2016-11-19] VITALS (20 sets, daily range): BP systolic 114–155; BP diastolic 50–78
--- NOTE | 2016-11-19 00:34 | NUR ---
PT KICKED COVERS OFF SELF; TEMPERATURE DROPPED. CHECKED RECTAL TEMP FOR CRITICORE ACCURACY. CRITICORE IS CORRECT TEMP. PT TEMP 95.7 ON CRITICORE; 95.4 ON RECTAL. ADDED ANOTHER BLANKET; BEARHUGGER TURNED ONTO HIGH.
--- NOTE | 2016-11-19 01:28 | NUR ---
ADDED ANOTHER WARM BLANKET TO PT. TOTAL OF 4 BLANKETS AND A DEL HUGGER TO TRY AND INCREASE PT TEMP.
--- NOTE | 2016-11-19 02:29 | NUR ---
CRITICORE HELLEN READING 97.5
--- NOTE | 2016-11-19 03:10 | NUR ---
REASSESSMENT COMPLETE. NO CHANGES FROM PREVIOUS ASSESSMENT. PT DROPPED INTO LOW 40'S WHILE ATTEMPTING TO SIT UP IN BED. THIS HAPPENED TWICE. ALARMS SET AND BED ALARM ON.
[2016-11-19 04:17] LABS: BASOPHILS 0.1 % (0.0-2.0); EOSINOPHILS 0.7 % (0-7); HEMATOCRIT 28.4 % (42.0-54.0); HEMOGLOBIN 9.5 g/dL (13.5-17.5); IMMATURE GRANULOCYTES 0.1 % (0-5); LYMPHOCYTES 9.7 % (15-50); MCH 26.8 pg (26.0-34.0); MCHC 33.5 g/dL (31.0-37.0); MONOCYTES 5.9 % (2-11); NEUTROPHILS 83.5 % (40-80); PLATELET COUNT 105 10x3/uL (130-400); RBC 3.55 10x6/uL (4.20-6.10); RDW 20.4 % (11.5-14.5)
[2016-11-19 04:36] LABS: ALBUMIN 2.6 g/dL (3.4-5.0); ANION GAP 16.9 mmol/L (8-16); BILIRUBIN - TOTAL 0.49 mg/dL (0.2-1.3); CALCIUM 8.8 mg/dL (8.5-10.1); CREATININE - SERUM 1.2 mg/dL (0.6-1.3); PROTEIN - SERUM 6.9 g/dL (6.4-8.2)
[2016-11-19 04:42] LABS: POTASSIUM - SERUM 3.9 mmol/L (3.5-5.1)
--- NOTE | 2016-11-19 07:15 | NUR ---
REPORT RECIEVED FROM RETAIL DELIVERY DRIVER NURSE. PT RESTING IN BED QUIETLY WITH EYES CLOSED. RESP EVEN AND UNLABORED. ASSESSMENT COMPETE PER FLOWSHEET. CALL LIGHT IN REACH. BED IN LOW POSITION. WILL CONT TO ASSESS.
--- NOTE | 2016-11-19 09:00 | NUR ---
MOTHER AT BEDSIDE. UPDATE PROVIDED. PT SLEEPING AT THIS TIME. STATED SHE [id number] COME BACK AT A LATER TIME.
--- NOTE | 2016-11-19 10:19 | CN ---
PATIENT NAME:FIDE QUAN MEDICAL RECORD: [id number] : 56 LOCATION:[id number] ADMIT DATE: 11/14/16 ACCOUNT: [id number] CONSULTING PHYSICIAN: CLIFTON SANDOVAL MD REFERRING PHYSICIAN: LAINE POTTER MD DATE OF CONSULTATION: 11/17/2016 Cardiology Consultation ADMITTING DIAGNOSES: 1. Bradycardia. 2. Altered mental status. 3. Multiple cerebrovascular accidents. 4. Hypertension. HISTORY OF PRESENT ILLNESS: Mr. Quan presented with altered mental status. He has had multiple CVAs in the past. His head CT and MRI are compatible with new CVA on top of old CVAs. He was noted to be bradycardic today; on telemetry, is sinus rhythm, heart rates in the 40s. Systolic blood pressure is not affected by this, this is in the 170s. He has a history of hypertension. He is on clonidine TTS-2 patch, otherwise no other AV blocking medications, only Norvasc, hydralazine and Imdur. His EKG is abnormal with ST-T abnormalities. He denies any chest pain. He has no cardiac history. He does have multiple risk factors including hypertension, hyperlipidemia and diabetes. PHYSICAL EXAMINATION: GENERAL APPEARANCE: Well-nourished, well-developed, appears stated age. Level of distress, comfortable. PSYCHIATRIC: Mental status, alert, normal affect. Orientation, oriented to time, place and person. EYES: Lids and conjunctiva, noninjected. No discharge, no pallor. ENT: Lips, teeth, gums, normal dentition. Oropharynx, no cyanosis, no pallor. NECK: Carotid arteries, bilateral normal upstroke, no bruits, no thrills. JUGULAR VEINS: No jugular venous pressure or distention. CERVICAL LYMPH NODES: Nontender, nonenlarged. THYROID: Not enlarged. Nontender. No nodules. LUNGS: Respiratory effort, unlabored. CHEST: Normal curvature. No thoracic deformity. No chest wall tenderness. Percussion, resonant. Auscultation, clear. No wheezes, no rales, no rhonchi. CARDIOVASCULAR: Precordial exam, nondisplaced. No heaves or pericardial thrills. Rate and rhythm, regular. Heart sounds, normal S1, normal S2. No S3, no gallop, no rub. Systolic murmur, not heard. Diastolic murmur, not heard. EXTREMITIES: No cyanosis, no edema. Peripheral pulses, full and equal in all extremities, except as noted. No bruits appreciated. ABDOMEN: Soft, nondistended. Normal aorta. No bruit. Nontender. No masses. Liver, nontender, no hepatomegaly. Spleen, nontender, no splenomegaly. MUSCULOSKELETAL: No joint tenderness. No joint swelling. No erythema. NEUROLOGICAL: Normal gait, normal strength, normal tone. SKIN: Warm and dry. OVERALL IMPRESSION: Bradycardia, abnormal ECG. This very well may be ischemic in nature, but with altered mental status, there is no way we would proceed with coronary angiography. He is nonverbal. The bradycardia, I do not think is secondary to the altered mental status, bradycardia may be response to the new CVA. The clonidine can give some AV blocking properties if his bradycardia CONSULT REPORT [id number] FIDE QUAN worsens or his heart rates under 40. Any compromised with this, would discontinue the clonidine patch. We will follow him on telemetry to see any further dysrhythmias and further bradycardia. TRANSINT:[id number] Voice Confirmation ID: [id number] DOCUMENT ID: [id number] CLIFTON SANDOVAL MD at 1019 CC: [id number] DICTATION DATE: 11/17/16 1049 LARDER COOK: 11/17/16 1740 ADM IN [place] [id number] [place] [id number]
--- NOTE | 2016-11-19 11:23 | NUR ---
Patient Name: FIDE ATWOOD Encounter No: [id number] : 1960 Primary Insurance: [place]ID [place] Anticipated DC Date: 11-19-2016 Planned Disposition: Assisted Facility External Planned Provider: TO BE DETERMINED DCP follow-up note: CM [facility], , ASKED FOR UPDATE; FACILITIES HAVE THE FOLLOWING QUESTIONS REGARDING PT/PT'S CARE: Are we treating the GI bleed? Does he have schizophrenia? Will he need IV abx at the facility? What are his plans for drug/alcohol abuse (PATIENTS PERSPECTIVE)? Why is he taking zyprexa (HOME MED)? CM TO WORK ON GETTING ANSWERS FOR FACILITIES TO CONSIDER INTERMEDIATE CARE PLACEMENT. WAITING ADMISSION DETERMINATIONS FROM [facility] AND [facility] FOR INTERMEDIATE CARE. Brooks Guillen, CASE MANAGEMENT
--- NOTE | 2016-11-19 11:45 | NUR ---
MRI NOTIFIED OF PT HAVING CRITICORE F/C AND COMPATABILITY WITH MRI MACHINE. ASKED CENTRAL SUPPLY TO BRING NEW MACEDO KIT SO MRI CAN ASSESS COMPATIBILTY.
--- NOTE | 2016-11-19 13:46 | NUR ---
DR. BALLESTEROS AT BEDSIDE. UPDATE PROVIDED.
--- NOTE | 2016-11-19 15:00 | NUR ---
REASSESSMENT COMPLETE. NO CHANGES NOTED AT THIS TIME.
--- NOTE | 2016-11-19 15:13 | EEG ---
PATIENT:FIDE ATWOOD DATE OF SERVICE: 11/14/16 MEDICAL RECORD: [id number] DATE OF : 56 LOCATION:D.230 D.ICU ADMISSION DATE: 11/14/16 REFERRING PHYSICIAN: INTERPRETING PHYSICIAN: YEIMY REYES MD DATE OF SERVICE: 11/18/2016 Electroencephalographic Report REFERRED BY: Myself as an inpatient in room 2307. ELECTROENCEPHALOGRAM NUMBER: [id number]. DATE OF EXAMINATION: 11/18/2016 at 12:30 p.m. TECHNICAL DATA: This electroencephalographic recording consists of approximately 20 minutes of data collection utilizing the international 10/20 system of electrode placement and both referential and non-referential montages. Sixteen channels of electrocerebral recording are accompanied by a 17th channel dedicated to the electrocardiographic rhythm and 2 channels of electromyographic recording. Recording is performed entirely in the lethargic state utilizing activation by photic stimulation. ELECTROENCEPHALOGRAPHIC DATA: The entirety of the recorded electrocerebral activity is performed in the lethargic state. Electromyographic artifact remains prominent. Rapid eye movements are rarely seen. The posterior dominant background has not developed. The study is monotonous and consists of a variety of slow wave activities ranging from 1-2 Hz in the delta range to 5-6 Hz theta range. Slowing is irregular in morphology, diffuse and symmetric in distribution and continuous throughout the recording. Electromyographic and movement artifacts partially obscured the recorded electrocerebral activity as well. No focal slowing is identified. No epileptiform discharges are seen. Photic stimulation induces no change in the recorded electrocerebral activity. INTERPRETATION: Continuous slow, generalized (lethargy). This electroencephalographic recording is indicative of a moderate diffuse encephalopathy. TRANSINT:[id number] Voice Confirmation ID: [id number] DOCUMENT ID: [id number] YEIMY REYES MD at 1513 CC: [id number] DICTATION DATE: 11/19/16 0647 CASEWORK MANAGER: 11/19/16 0958 ADM IN [place] [address] [place] [address]
--- NOTE | 2016-11-19 16:45 | NUR ---
PT TAKEN VIA STRETCHER TO MRI.
--- NOTE | 2016-11-19 18:07 | NUR ---
RETURNED FROM MRI. PART OF SCAN WAS NOT ABLE TO BE COMPLETED DUE TO PT NOT REMAINING STILL ON TABLE. DR. REYES CALLED AND HE STATED TO TRY AGAIN TOMORROW. VSS UPON RETURN. TEMP 97.4
--- NOTE | 2016-11-19 19:35 | NUR ---
REPORT RECEIVED, PATIENT RESTING IN BED WITH EYES CLOSED. VSS. ASSESSMENT COMPLETE PER FLOWSHEET. PATIENT ABLE TO SAY HIS NAME, BUT CONFUSED TO PLACE, TIME, AND SITUATION. STATES HE IS AT THIS HOME. BED LOW, CL IN REACH. SEE FLOWSHEET FOR MORE DETAILS.
--- NOTE | 2016-11-19 21:10 | NUR ---
PATIENT RESTING COMFORTABLY. HAD SOME TROUBLE WITH SWALLOWING NIGHT MEDS. WILL MONITOR.
--- NOTE | 2016-11-19 23:10 | NUR ---
REASSESSMENT COMPLETE. NO CHANGES AT THIS TIME. SEE FLOWSHEET FOR DETAILS.
[2016-11-20] VITALS (24 sets, daily range): BP systolic 122–171; BP diastolic 57–74
--- NOTE | 2016-11-20 02:03 | NUR ---
PATIENT PULLING OFF EKG LEADS AND B/P CUFF AFTER BEING TOLD THEY ARE NEEDED TO MONITOR. PATIENT STATES HE DOES NOT NEED THEM. PATIENT CONFUSED TO PLACE, TIME, AND SITATION. ALSO PULLING AT IV LINE, PROTECTIVE DRESSING ALREADY PRESENT. B/L WRIST RESTRAINTS PLACED AT THIS TIME.
[2016-11-20 05:57] LABS: BASOPHILS 0.1 % (0.0-2.0); EOSINOPHILS 1.7 % (0-7); HEMATOCRIT 29.4 % (42.0-54.0); HEMOGLOBIN 9.5 g/dL (13.5-17.5); IMMATURE GRANULOCYTES 0.1 % (0-5); LYMPHOCYTES 21.9 % (15-50); MCH 26.1 pg (26.0-34.0); MCHC 32.3 g/dL (31.0-37.0); MCV 80.8 fL (80.0-100.0); MONOCYTES 7.6 % (2-11); NEUTROPHILS 68.6 % (40-80); PLATELET COUNT 110 10x3/uL (130-400); RBC 3.64 10x6/uL (4.20-6.10); RDW 20.7 % (11.5-14.5)
[2016-11-20 06:10] LABS: WBC 7.7 10x3/uL (4.8-10.8)
[2016-11-20 06:20] LABS: ALBUMIN 2.7 g/dL (3.4-5.0); ANION GAP 15.9 mmol/L (8-16); BILIRUBIN - TOTAL 0.65 mg/dL (0.2-1.3); CALCIUM 8.9 mg/dL (8.5-10.1); CARBON DIOXIDE 22.3 mmol/L (21.0-32.0); CREATININE - SERUM 1.3 mg/dL (0.6-1.3); POTASSIUM - SERUM 4.2 mmol/L (3.5-5.1); PROTEIN - SERUM 6.7 g/dL (6.4-8.2)
--- NOTE | 2016-11-20 07:00 | NUR ---
PT RESTING WITH EYE CLOSED - RESPIRATION REG RATE AND RHTYM
--- NOTE | 2016-11-20 08:30 | NUR ---
PT TRASFERRED TO MRI FOR CONTINUE TEST VIA STRETCHER - PT AA&O X3 DENIES PAIN
--- NOTE | 2016-11-20 08:30 | NUR ---
DR. REYES ON UNIT FOR ASSESSMENT - INFORMED MD PT IN MRI - UPDATED ON PT'S A.M. ASSESSMENT
--- NOTE | 2016-11-20 09:49 | NUR ---
PT RTN BACK TO ROOM - FROM MRI BY GOLF CLUB MANAGER - PT TOLERATED PROCEDURE - AWAITING RESULTS
--- NOTE | 2016-11-20 09:53 | NUR ---
INFORMED DR. REYES PT IS BACK IN UNIT
--- NOTE | 2016-11-20 10:00 | NUR ---
DR. POTTER ON UNIT - D/C CLONIDINE PATCH - R/T CARDIAC PAUSES - CPOC
--- NOTE | 2016-11-20 11:10 | NUR ---
ASSESSMENT COMPLETE - NO ACUTE CHANGES FROM 0700 ASSESSMENT - PT RESTING WITH EYE CLOSED - RESP REG RATE & RHYTHM - CPOC
--- NOTE | 2016-11-20 12:00 | NUR ---
PT ASSISTED WITH LUNCH TRAY - PT ATE 100% OF LUNCH TRAY WITHOUT ANY DIFFICULTY. CPOC
--- NOTE | 2016-11-20 15:00 | NUR ---
ASESSMENT COMPLETE - NO ACUTE CHAGES FROM A.M. ASSESSMENT - CPOC
--- NOTE | 2016-11-20 16:30 | NUR ---
PT REFUSED TO EAT DINNER TRAY - CONT TO ASK WHY OR HOW PT GOT TO THE HOSPITAL.
--- NOTE | 2016-11-20 18:24 | NUR ---
GAVE VANCOMYCIN PER PHARMD DIRECTED - SEE MAR
--- NOTE | 2016-11-20 19:15 | NUR ---
SHIFT ASSESSMENT COMPLETE PER FLOWSHEET, SEE FOR DETAILS. PATIENT RESTING WITH EYES CLOSED WHEN ENTERING THE ROOM, OPEN EYES TO VOICE. CONFUSED TO PLACE, TIME, AND SITUATION. "STATES HE IS IN [place]. REORIENTED TO PLACE AND SITUATION. RR EVEN AND NON-LABORED. S1S2 NOTED. NORMAL SINUS ON MONITOR. PERIPHERAL PULSES +2, BILATERAL. PIV IN LEFT HAND, COVERED WITH DRESSING. C/D/I. 1/2NS INFUSING @100MLS/HR. NO REDNESS OR SWELLING @ IV SITE. VSS, WILL MONITOR.
--- NOTE | 2016-11-20 21:05 | NUR ---
NIGHT MEDS GIVEN. PATIENT DID HAVE PROBLEMS SWALLOWING. VSS, WILL MONITOR.
--- NOTE | 2016-11-20 23:05 | NUR ---
REASSESSMENT COMPLETE.NO CHANGES AT THIS TIME. RR EVEN AND NON-LABORED. VSS. PATIENT BEING COOPERATIVE MISTY. STILL CONFUSED TO PLACE, TIME, AND SITUATION. PATIENT TURNED WITH MAX ASSISST AT THIS TIME. TOOK ABOUT 50CC OF ICE WATER WITHOUT TROUBLE. WILL CONTINUE TO MONITOR.
[2016-11-21] VITALS (19 sets, daily range): BP systolic 116–175; BP diastolic 44–95
--- NOTE | 2016-11-21 01:05 | NUR ---
RESTING WITH EYES CLOSED AT THIS TIME. VSS.
--- NOTE | 2016-11-21 03:00 | NUR ---
REASSESSMENT COMPLETE. CO CHANGES AT THIS TIME. XRAY HERE, PATIENT TOLERATED WELL.
--- NOTE | 2016-11-21 04:00 | NUR ---
RESTRAINTS TAKEN OFF. PATIENT STATES HE UNDERSTANDS HE CANNOT PULL OFF/OUT MEDICAL EQUIPMENT. WILL MONITOR.
[2016-11-21 05:24] LABS: BASOPHILS 0.1 % (0.0-2.0); EOSINOPHILS 1.8 % (0-7); HEMATOCRIT 28.5 % (42.0-54.0); HEMOGLOBIN 9.3 g/dL (13.5-17.5); IMMATURE GRANULOCYTES 0.2 % (0-5); LYMPHOCYTES 21.7 % (15-50); MCH 26.4 pg (26.0-34.0); MCHC 32.6 g/dL (31.0-37.0); MONOCYTES 8.1 % (2-11); NEUTROPHILS 68.1 % (40-80); RBC 3.52 10x6/uL (4.20-6.10); RDW 20.2 % (11.5-14.5); WBC 8.8 10x3/uL (4.8-10.8)
[2016-11-21 05:26] LABS: PLATELET COUNT 141 10x3/uL (130-400)
[2016-11-21 05:46] LABS: APTT 44.5 SECONDS (22.8-39.4); CALCIUM 9.3 mg/dL (8.5-10.1); CARBON DIOXIDE 21.8 mmol/L (21.0-32.0); CREATININE - SERUM 1.2 mg/dL (0.6-1.3); D-DIMER-QUANTITATIVE 0.75 ug/mLFEU (0.20-0.54); POTASSIUM - SERUM 3.8 mmol/L (3.5-5.1); VANCOMYCIN - RANDOM 18.5 ug/mL (10.0-20.0)
[2016-11-21 05:47] LABS: INR 1.03 (0.85-1.17); PROTIME 13.3 SECONDS (11.6-15.0)
--- NOTE | 2016-11-21 06:07 | NUR ---
RESTING WELL, PATIENT TURNED FOR COMFORT. DENIES FURTHER NEED AT THIS TIME.
--- NOTE | 2016-11-21 07:00 | NUR ---
PT REPORT REC'D, PT CARE ASSUMED. PT AWAKE LAYING IN BED. PT CONFUSED TO PLACE, TIME AND SITUATION. NO C/O PAIN. VSS, SHIFT ASSESSMENT COMPLETED, SEE FLOW SHEET. ROOM FREE OF CLUTTER, BED LOCKED IN LOWEST POSITION, CALL LIGHT IN REACH, WILL CONTINUE TO MONITOR PT.
--- NOTE | 2016-11-21 09:00 | NUR ---
PT SITTING UP IN BED, NO C/O PAIN, VSS, WILL CONTINUE TO MONITOR PT.
--- NOTE | 2016-11-21 09:30 | NUR ---
PT PULLED LEFT WRIST PIV OUT, TIP INTACT. RESITED PIV TO LEFT HAND, WRAPPED IN GAUZE AND SPONDAGE APPLIED TO LEFT EXTREMITY, PT INSTRUCTED NOT TO PULL IV OUT. PT STATED UNDERSTANDING.
--- NOTE | 2016-11-21 11:00 | NUR ---
PT SITTING UP IN BED, NO C/O PAIN, EATING APPLESAUCE, TOLERATING FINE. REASSESSMENT COMPLETED, SEE FLOW SHEET. ROOM FREE OF CLUTTER, BED LOCKED IN LOWEST POSITION, CALL LIGHT IN REACH, WILL CONTINUE TO MONITOR PT.
--- NOTE | 2016-11-21 15:15 | NUR ---
PT HAS LARGE BM. SOFT BROWN STOOL NOTED. PT GIVEN COMPLETE BATH AND LINEN CHANGE. MACEDO CARE GIVEN WITH SURE STEP MACEDO WIPES. PT TOLERATED WELL. CALL LIGHT WITHIN REACH. PT ABLE TO ASSIST WITH TURNING. CALM AND COOPERATIVE AT THIS TIME. ABLE TO ASK ME FOR BEDPAN.
--- NOTE | 2016-11-21 16:27 | NUR ---
CALLED DR. POTTER AND UPDATED HER ON PT'S STATUS. ORDERS RECEIVED TO TRANSFER TO FLOOR.
--- NOTE | 2016-11-21 19:45 | NUR ---
ASSESSMENT COMPLETE. S1S2. RR EQUAL UNLABORED; CRACKLES BILATERALLY IN UPPER LOBES; DIMINISHED BILATERALLY IN LOWER LOBES. SCD AND CRITICORE MACEDO IN PLACE. PT CONFUSED. SPEECH CLEAR. PIV TO LEFT HAND; PATENT. PERRLA.
--- NOTE | 2016-11-21 21:28 | NUR ---
REC'D PT FROM ICU VIA BED. PT OPENS EYES TO VOICE STIMULI. NO VERBAL RESPONSES, MAKES GRUNTING NOISIES. TRANSFERED FROM ICU BED TO [facility] BED WITH ASSIST X4 STAFF MEMBERS. PT DID NOT ASSIST AT ALL. IV TO LEFT HAND PATENT NO S/S INFILTRATION WITH 1/2 NS INFUSING AT 100ML/HR. IV SITE COVERED WITH SLEVE TO PREVENT PT FROM PULLING AT SITE. MACEDO CATH PATENT TO BSD WITH DARK STRAW COLOR URINE IN TUBE. WEARING SCD'S. BILATERAL HEEL ELEVATED ON PILLOW. HOB ELEVATED 45 DEGREES. BED DOWN SIDE RAILS UP X2. BED ALARM TURNED ON. CALL LIGHT PLACED WITH IN REACH. NURSE ABLE TO VISUALIZE PT FROM NURSES DESK. WILL CONT. TO MONITOR. VS- T-97.5 AX, P-60, R-16, B/P 136/58, O2SAT 93% ON RA.
--- NOTE | 2016-11-21 23:15 | NUR ---
TELEMETRY PLACED ON PT. PT AWAKEN BY NURSES VOICE. ASKED WHAT TIME IT WAS, SPEECH CLEAR. PT ORIENTED TO ROOM, AND CALL LIGHT. DENIES PAIN OR DISCOMFORT AT THIS TIME. WILL CONT. TO MONITOR. BED ALARM REMAINS ON.
[2016-11-22 00:30] VITALS: BP 143/65
--- NOTE | 2016-11-22 00:34 | NUR ---
NURSE OBSERVED PT ATTEMPTING TO GET OUT OF BED. NURSE ENTERED PT'S ROOM AND ASKED PT IF HE NEEDED ANY ASSISTANCE. PT REPLIED " I'M TRYING TO GO TO THE BATHROOM." NURSE OFFERED PT A BED HUSSEIN. THIS NURSE IS UNAWARE IF PT IS ABLE TO AMBULATE. PT PLACED ON BED HUSSEIN, AND INSTRUCTED TO CALL NURSE WHEN FINISHED. PLACED CALL LIGHT IN PT'S HAND AND PLACED HIS THUMB OVER CALL BUTTON. WILL CONT. TO MONITOR. BED ALARM ON. PT TAKEN OFF BED HUSSEIN, HE DID NOT HAVE A BM AT THIS TIME
--- NOTE | 2016-11-22 01:29 | NUR ---
PT SLEEPING. LAYING ON LEFT SIDE. HOB ELEVATED. EYES CLOSED, RESP UNLABORED. APPEARS COMFORTABLE. CALL LIGHT WITH IN REACH. BED ALARM ON. WILL CONT. TO MONITOR.
--- NOTE | 2016-11-22 02:50 | NUR ---
PT SLEEPING. EYES CLOSED, RESP EVEN AND UNLABORED. APPEARS COMFORTABLE. NO DISTRESS NOTED. CALL LIGHT WITH IN REACH. BED ALARM ON. WILL CONT. TO MONITOR.
--- NOTE | 2016-11-22 03:14 | NUR ---
COLLEGE AND CAREER COUNSELOR AT BEDSIDE FOR VS, NEEDS ADDRESSED. CALL LIGHT IN REACH. WILL CONT TO MONITOR.
--- NOTE | 2016-11-22 04:15 | NUR ---
PT SLEEPING. EYES CLOSED, RESP EVEN AND UNLABORED. APPEARS COMFORTABLE. NO DISTRESS NOTED. CALL LIGHT WITH IN REACH. BED ALARM ON. WILL CONT. TO MONITOR.
[2016-11-22 04:30] VITALS: BP 136/64
--- NOTE | 2016-11-22 05:33 | NUR ---
PT AWAKEN BY NURSE ENTERING ROOM. PT ABLE TO VOICE NEEDS WITH CLEAR SPEECH. DENIES NEEDS AT THIS TIME. NO DISTRESS NOTED. CALL LIGHT WITH IN REACH. BED ALARM ON. WILL CONT. TO MONITOR.
[2016-11-22 06:35] LABS: BASOPHILS 0.1 % (0.0-2.0); EOSINOPHILS 3.1 % (0-7); HEMATOCRIT 29.9 % (42.0-54.0); HEMOGLOBIN 9.6 g/dL (13.5-17.5); IMMATURE GRANULOCYTES 0.1 % (0-5); LYMPHOCYTES 20.1 % (15-50); MCH 25.8 pg (26.0-34.0); MCHC 32.1 g/dL (31.0-37.0); MCV 80.4 fL (80.0-100.0); MONOCYTES 7.4 % (2-11); NEUTROPHILS 69.2 % (40-80); PLATELET COUNT 165 10x3/uL (130-400); RBC 3.72 10x6/uL (4.20-6.10); RDW 19.5 % (11.5-14.5); WBC 8.4 10x3/uL (4.8-10.8)
[2016-11-22 06:51] LABS: ANION GAP 14.9 mmol/L (8-16); CALCIUM 8.9 mg/dL (8.5-10.1); CARBON DIOXIDE 22.8 mmol/L (21.0-32.0); CREATININE - SERUM 1.1 mg/dL (0.6-1.3); POTASSIUM - SERUM 3.7 mmol/L (3.5-5.1)
--- NOTE | 2016-11-22 07:41 | NUR ---
AM ROUNDS - PT APEARS TO BE ASLEEP. BREATHS ARE EQUAL AND NON LABORED. PT IS ON CONTACT ISOLATION. HELLEN SEEN. BED ALWARM ON. MONITOR SHOWING SINUS AMY, HR 59. LEFT HAND 1/2 NS AT 100CC/HR. SCD ON. WILL CONTINUE TO MONITOR.
[2016-11-22 08:00] VITALS: BP 153/70
[2016-11-22 12:00] VITALS: BP 136/66
--- NOTE | 2016-11-22 19:30 | NUR ---
RECEIVED REPORT, PT LAYING QUIETLY, BED IS LOW, SRX2, BED ALARM IS ON, CALL LIGHT IN REACH, WILL CONTINUE TO MONITOR
[2016-11-22 22:46] VITALS: BP 148/84
[2016-11-23] VITALS (7 sets, daily range): BP systolic 135–169; BP diastolic 64–82
--- NOTE | 2016-11-23 00:27 | NUR ---
HOME ENERGY AUDITOR AT BEDSIDE FOR VS. NEEDS ADDRESSED AT THIS TIME. CALL LIGHT IN REACH. WILL CONT TO MONITOR.
[2016-11-23 06:08] LABS: BASOPHILS 0.1 % (0.0-2.0); EOSINOPHILS 3.9 % (0-7); HEMATOCRIT 29.6 % (42.0-54.0); HEMOGLOBIN 9.7 g/dL (13.5-17.5); IMMATURE GRANULOCYTES 0.1 % (0-5); MCH 26.1 pg (26.0-34.0); MCHC 32.8 g/dL (31.0-37.0); MCV 79.8 fL (80.0-100.0); MONOCYTES 8.4 % (2-11); NEUTROPHILS 64.5 % (40-80); PLATELET COUNT 179 10x3/uL (130-400); RBC 3.71 10x6/uL (4.20-6.10); RDW 19.3 % (11.5-14.5); WBC 7.3 10x3/uL (4.8-10.8)
[2016-11-23 06:40] LABS: CALC OSMOLALITY 282 mosm/kg (275-300); CALCIUM 9.3 mg/dL (8.5-10.1); CHLORIDE - SERUM 109 mmol/L (98-107); GLUCOSE 88 mg/dL (74-106); POTASSIUM - SERUM 3.4 mmol/L (3.5-5.1); SODIUM 143 mmol/L (136-145); UREA NITROGEN 9 mg/dL (7-18); eGFR NON AFRICAN AMERICAN 81 mL/min (90-120)
--- NOTE | 2016-11-23 07:23 | NUR ---
AM ROUNDS - PT IN BED, AWAKE. PT IS CONFUSSED AND TRYING TO GET OUT OF THE BED. SCD ON, BED AT LOWEST POSITION. PT IS RECIEVING A BREATHING TREATMENT. PT IS ON RA, LEFT HAND IV WITH 1/2 NS AT 100CC/HR. MACEDO DRAINING CLEAR, YELLOW. MONITOR SHOWING SR, HR 68. BED ALARM IS SET AND WORKING. WILL CONTINUE TO MONITOR.
--- NOTE | 2016-11-23 16:31 | NUR ---
CRISTINO FROM PHARMACY SAID THAT IS IT NOT RECOMENDED TO RUN ZOSYN AND VANCOMYCIN AT THE SAME TIME.
--- NOTE | 2016-11-23 18:10 | NUR ---
PT DISCONECTED HIS IV AND MACEDO. TOOK ONE SCD OFF. TURNED OFF BED ALARM. SEEN PT IN HALLWAY RIGHT OUTSIDE HIS ROOM WITH ONE SDC STILL CONNECTED. PLACED BACK IN BED, SET BED ALARM, RECONNECTED IV, MACEDO AND SCD. SIDE RAILS UPX3. REINSTRUCTED AND RE-EDUCATED PT TO USE HIS CALL JEAN AND WAIT FOR ASSISTANCE. CALL JEAN PLACED IN BED NEXT TO THE PT.
--- NOTE | 2016-11-23 18:40 | NUR ---
Patient Name: FIDE ATWOOD Encounter No: [id number] : 1960 Primary Insurance: MEDICAID [place] Anticipated DC Date: 11-19-2016 Planned Disposition: Nursing Home Facility, [facility] MEDICAID BED External Planned Provider: TO BE DETERMINED DCP follow-up note: LILIANE SPOKE TO MAIKOL OF [facility], [facility], [facility], [facility] AND [facility]. PROVIDED THE FOLLOWING INFORMATION VIA FAX: LILIANE CALLED DR. KIDD'S OFFICE. ZYPREXA WAS PRESCRIBED AT VISIT AT [facility] LAST YEAR, DOES NOT KNOW WHAT FOR. LILIANE CALLED AND SPOKE TO PT'S MOTHER WHO REPORTS THE DOCTOR STOPPED A COUPLE OF MEDICATIONS THAT SHE DID NOT KNOW WHAT THEY WERE FOR AND DID NOT KNOW WHAT THIS ONE WAS FOR. PT'S MOTHER REPORTS PT HAS NEVER BEEN TO ANY PSYCHIATRIC HOSPITAL NOR HAS HE EVER BEEN DIAGNOSED WITH MENTAL ILLNESS. LILIANE RECEIVED CALL FROM [facility] WHO WILL VISIT WITH PT AGAIN TOMORROW. CM ADVISED PT STILL ON ISOLATION. CM [email or web address] AT [phone]. CM WAITING ADMISSION DETERMINATION FOR [facility], [facility], [facility], [facility] AND [facility]. Brooks Guillen, CASE MANAGEMENT
[2016-11-24 02:03] VITALS: BP 144/71
--- NOTE | 2016-11-24 03:00 | NUR ---
NURSE ROUNDS 21:00 11/23/16 - PT LYING IN BED, AWAKE, ALERT, CONFUSED, DISORIENTED X 3, WILL FOLLOW SIMPLE COMMANDS HOWEVER NOT FOR LONG. PT HAS REPEATEDLY TRIED TO GET OOB, KEEPS ASKING FOR EYE GLASSES, DENIES ANY NEEDS OTHER THAN HIS GLASSES. PT HAS SCD'S ON, HELLEN IN TACT. PTS TEMP HAS BEEN BELOW 96 ON THE DISPOSABLE THERMOMETER, HOWEVER I DO NOT THINK IT IS WORKING PROPERLY. WILL FIND A MORE RELIABLE SOURCE AND RECHECK. PT C/O BEING HOT. SKIN COOL, DRY, INTACT, BUT NOT COLD. CONTINUE TO MONITOR CLOSELY. BED LOW, CALL LIGHT IN REACH, SIDE RAILS X 2, HOB 30 DEGREES, BED ALARM ON.
--- NOTE | 2016-11-24 04:22 | NUR ---
PT LYING IN BED, EYES CLOSED, RESPIRATIONS EVEN AND UNLABORED. PT IS FINALLY RESTING COMFORTABLY, EASILY ROUSABLE TO VERBAL STIMULI, DENIES ANY NEEDS. CONTINUE TO MONITOR CLOSELY. BED LOW, CALL LIGHT IN REACH, BED ALARM ON.
[2016-11-24 05:44] VITALS: BP 152/72
[2016-11-24 06:09] LABS: BASOPHILS 0 % (0.0-2.0); EOSINOPHILS 4.1 % (0-7); HEMATOCRIT 28.8 % (42.0-54.0); HEMOGLOBIN 9.4 g/dL (13.5-17.5); IMMATURE GRANULOCYTES 0.2 % (0-5); LYMPHOCYTES 31.4 % (15-50); MCH 26.3 pg (26.0-34.0); MCHC 32.6 g/dL (31.0-37.0); MCV 80.4 fL (80.0-100.0); MONOCYTES 7.9 % (2-11); NEUTROPHILS 56.4 % (40-80); PLATELET COUNT 164 10x3/uL (130-400); RBC 3.58 10x6/uL (4.20-6.10); RDW 19.3 % (11.5-14.5)
[2016-11-24 06:22] LABS: WBC 5.4 10x3/uL (4.8-10.8)
--- NOTE | 2016-11-24 06:25 | NUR ---
PT HAS BEEN IRRITABLE MOST OF THIS SHIFT, INCREASED CONFUSION, UNCOOPERATIVE AT TIMES, AND REFUSING TO HAVE FSBS TAKEN AT THIS TIME. PT STATES HE IS TIRED OF BEING STUCK SO MUCH. PT CONTINUES TO HAVE CLOSE AND FREQUENT MONITORING.
[2016-11-24 06:28] LABS: CALC OSMOLALITY 279 mosm/kg (275-300); CALCIUM 9.1 mg/dL (8.5-10.1); CARBON DIOXIDE 24.3 mmol/L (21.0-32.0); CHLORIDE - SERUM 108 mmol/L (98-107); CREATININE - SERUM 0.9 mg/dL (0.6-1.3); GLUCOSE 79 mg/dL (74-106); POTASSIUM - SERUM 3.6 mmol/L (3.5-5.1); SODIUM 142 mmol/L (136-145); UREA NITROGEN 8 mg/dL (7-18); eGFR NON AFRICAN AMERICAN > 90 mL/min (90-120)
--- NOTE | 2016-11-24 08:08 | NUR ---
ON INITIAL AM ROUNDS. FOUND PT TRYING TO CLIMB OOB. PT IS CONFUSED AND THINKS HE IS AT HOME. ATTEMPTED REORIENTING PT BUT PT EASILY FORGETS AND STILL THINKS HE IS HOME. REPOSITIONED PT UP IN BED AND ENCOURAGED HIM TO CALL FOR HELP AND ORIENTED HIM TO CL. PT VERBALIZED UNDERSTANDING BUT MOST LIKELY WILL CONTINUE TO ATTMEPT. BUILT IN BED ALARM ON. PROVIDED MACEDO CARE WITH SURE-STEP WIPES AND LABELED MACEDO BAG WITH APPROPRIATE STICKER. PROVIDED PT WITH ALL MORNING MEDICATIONS AND HE SWALLOWED WITHOUT ANY DIFFICULTIES. INITIATED IVPB ZOSYN INFUSING VIA L.HAND PIV WITH DRSG CDI AND SWAB CAPS IN USE INFUSING OVER EXTENDED PERIOD OF 4 HOURS. REMOVED SCDS TO ALLOW A BREAK ON HIS LEGS, NO BREAKDOWN NOTED. REPLACED STAT LOCK TO R.INNER THIGH OF MACEDO, MACEDO DRAINING TO GRAVITY OFF R.SIDE OF BED. PT NOW SITTING UP EATING BREAKFAST AND DENIES ANY CURRENT PAIN OR NEEDS. CL IN REACH, BED IN LOWEST, SIDE RAILS X2, AND BUILT IN BED ALARM ON. WILL CPOC.
[2016-11-24 09:06] VITALS: BP 165/79
--- NOTE | 2016-11-24 13:02 | NUR ---
Patient Name: FIDE ATWOOD Encounter No: [id number] : 1960 Primary Insurance: MEDICAID [place] Anticipated DC Date: 11-19-2016 Planned Disposition: Custodial Facility External Planned Provider: TO BE DETERMINED, NURSING HOME CARE MEDICAID BED DCP follow-up note: CM MET WITH PT'S MOTHER, CYNDI ATWOOD, WHO PROVIDED COPY OF POA, COPY PLACED ON CHART. CYNDI STILL IN AGREEMENT WITH PLACEMENT FOR NURSING HOME CARE IN [place] SO FAMILY CAN VISIT PT ONCE PLACED. CM CALLED [facility], SPOKE TO FÉLIX WHO COULD NOT ACCOMODATE PT IN ISOLATION. CM FAXED POA PAPERWORK TO [facility] AND [facility]. CM WAITING ADMISSION DETERMINATION FOR NURSING HOME CARE FROM [facility] AND [facility] AND [facility]. Brooks Guillen, CASE MANAGEMENT
[2016-11-24 13:32] VITALS: BP 137/65
--- NOTE | 2016-11-24 13:51 | NUR ---
Nutrition Follow Up: Chart reviewed. Per chart pt is confused and remains in isolation. Pt is eating 79% meal avg on a regular mechanical soft diet with thin liquids. Wt loss noted. I<O. +BM 11/22/16. Labs reviewed. Meds noted including Vanc, 1/2 NS @ 30 ml/hr. Pt with good po intake at this time. Rec continue current diet. RD will continue to monitor pt progress.
--- NOTE | 2016-11-24 14:35 | NUR ---
PT BEING VERY COMBATIVE AND HATEFUL THREATENING TO "HURT ME IF WE DONT LET HIM GO" PT IS UP OOB AND TRYING TO WALK OUT. PHYSICAL THERAPY AT BEDSIDE TRYING TO ASSIST PT BACK TO BED AND PT STATES "IM NOT GOING IN THERE THATS THE KITCHEN, JUST RELEASE ME" PT IS UNABLE TO REORIENT AND REFUSES TO SIT DOWN. PAGED VIA [facility] ORTIZ APN AND REC'D ORDERS FOR MEDICATION TO HELP CALM HIM DOWN. WILL CTM.
[2016-11-24 18:06] VITALS: BP 159/81
[2016-11-24 20:00] VITALS: BP 135/53
--- NOTE | 2016-11-24 20:30 | NUR ---
REPORT RECEIVED AND CARE ASSUMED. LYING IN BED WITH EYES CLOSED. NO DISTRESS NOTED. ASSESSMENT COMPLETED PER FLOW SHEET. ON CONTACT ISOLATION. WILL CONTINUE TO MONITOR.
[2016-11-25] VITALS: BP 138/60
[2016-11-25 04:00] VITALS: BP 144/84
--- NOTE | 2016-11-25 04:50 | NUR ---
PATIENT SAT ON SIDE OF BED. ASSISTED TO BATHROOM FOR BOWEL MOVEMENT. REMAINS CALM AND COOPERATIVE WITH CARE.
[2016-11-25 05:40] LABS: BASOPHILS 0.2 % (0.0-2.0); EOSINOPHILS 4.1 % (0-7); HEMATOCRIT 29.5 % (42.0-54.0); HEMOGLOBIN 9.6 g/dL (13.5-17.5); MCH 26.1 pg (26.0-34.0); MCHC 32.5 g/dL (31.0-37.0); MCV 80.2 fL (80.0-100.0); MONOCYTES 8.2 % (2-11); NEUTROPHILS 57.5 % (40-80); PLATELET COUNT 175 10x3/uL (130-400); RBC 3.68 10x6/uL (4.20-6.10); WBC 5.6 10x3/uL (4.8-10.8)
[2016-11-25 05:56] LABS: CALC OSMOLALITY 278 mosm/kg (275-300); CALCIUM 9.3 mg/dL (8.5-10.1); CARBON DIOXIDE 24.4 mmol/L (21.0-32.0); CHLORIDE - SERUM 108 mmol/L (98-107); CREATININE - SERUM 0.8 mg/dL (0.6-1.3); GLUCOSE 81 mg/dL (74-106); POTASSIUM - SERUM 3.4 mmol/L (3.5-5.1); SODIUM 142 mmol/L (136-145); eGFR NON AFRICAN AMERICAN > 90 mL/min (90-120)
[2016-11-25 06:06] LABS: UREA NITROGEN 5 mg/dL (7-18)
[2016-11-25 07:25] VITALS: BP 155/66
--- NOTE | 2016-11-25 07:56 | NUR ---
AM ROUNDING DONE WITH PATIENT APPEARING TO BE ALSEEP, RESP ARE EVEN AND NON LABORED, SNORING. IN CONTACT ISOLATION. BED ALARM IS ON. FOELY CATH PATENT WITH YELLOW URINE. ON HEART MONITOR SHOWING SB, HR 55. 1/2 NS INFUSING TO LEFT HAND AT 100 CC/HR. BILATERAL SCD'S ARE OFF AT PRESENT TIME. WILL CONTINUE TO MONITOR.
[2016-11-25 12:54] VITALS: BP 154/75
--- NOTE | 2016-11-25 12:54 | NUR ---
BED ALARM IS ON, ENCOURAGED PATIENT SEVERAL TIMES TO KEEP FEET AND LEGS IN BED SO HE DOES NOT SET OFF BED ALARM, ON HEART MONITOR SHOWING SR, HR 65. WILL CONTINUE TO FOLLOW.
--- NOTE | 2016-11-25 15:54 | NUR ---
Patient Name: FIDE ATWOOD Encounter No: [id number] : 1960 Primary Insurance: MEDICAID [place] Anticipated DC Date: 11-19-2016 Planned Disposition: [facility] Facility External Planned Provider: TO BE DETERMINED, LONG-TERM CARE MEDICAID BED DCP follow-up note: CM COMLPETED [facility] ASSESSMENT, OBTAINED DR. NNUO SIGNATURE. CM CALLED PT'S MOTHER/POA, CYNDI ATWOOD, WHO WILL COME TO HOSPITAL TOMORROW MORNING TO REVIEW AND SIGN KAYLEY FOR SUBMISSION. CM FAXED REFERRAL TO [facility] [place], & [facility] IN [place], , REQUESTING [facility] PLACEMENT ASSESSMENT. CM FAXED UPDATE FOR PLACEMENT TO [facility], [facility] AND [facility]. CM WAITING ADMISSION DETERMINATION FOR DUST MIXER CARE FROM [facility]; [facility], [facility] AND [facility]; [facility] AND [facility] IN [place]. CM WILL SUMBMIT KAYLEY FOR KAYLEY SCREENING TO ENTER NURSING FACILITY (REQUIRED DUE TO PT'S AGGITATION AND REQUIREMENT OF HALDOL). FABY GALARZA, CASE MANAGEMENT
[2016-11-25 16:19] VITALS: BP 149/75
--- NOTE | 2016-11-25 17:34 | NUR ---
BED ALARM IS STILL IN USE, PATIENT STILL CONFUSED. STILL IN CONTACT ISOLATION, WILL MONITOR CLOSELY FOR FALLS.
[2016-11-25 20:00] VITALS: BP 149/71
[2016-11-26 02:00] VITALS: BP 148/74
--- NOTE | 2016-11-26 05:25 | NUR ---
PT CONFUSED AND AGITATED. REFUSES HYDRALAZINE PO AT THIS TIME. ALSO REFUSES HIS LAB DRAW THIS AM. PT STATES "I'M WAITING ON MY CHRISTIANSEN AND I'M NOT DOING ANYTHING UNTIL HE CUTS MY HAIR". ATTEMPTED TO REORIENT PT AND TO RATIONALIZE WITH HIM WITHOUT SUCCESS. CALL LIGHT WITHIN REACH. BED ALARM SET FOR SAFETY. WILL MONITOR HIM.
--- NOTE | 2016-11-26 07:06 | NUR ---
PT SITTING UP IN BED DENIES NEEDS WILL CONT TO MONITOR
[2016-11-26 07:31] VITALS: BP 140/65
--- NOTE | 2016-11-26 08:33 | NUR ---
DURING AM MED PASS, PT ASKING FOR HIS SON. I TOLD PT THAT I DIDNT HAVE A NUMBER FOR HIM BUT IF HE WOULD GIVE IT TO ME I WOULD GLADLY CALL HIM FOR HIM. PT SAID "HES RIGHT THERE!" AND POINTED ACROSS THE MENENDEZ TO ANOTHER PT ROOM. EXPLAINED TO PT THAT THIS OTHER PT WAS NOT HIS SON, PT WAS VERY ARGUMENTATIVE AND INSISTS THAT THE PT ACROSS THE MENENDEZ IS HIS SON.
--- NOTE | 2016-11-26 08:48 | NUR ---
PT BA GOING OFF, WALKED TO PT ROOM. PT SITTING ON SIDE OF BED TURNING BA OFF HIMSELF. ASSISTED PT BACK INTO BED AND TOLD HIM TO PLEASE NOT TURN ALARM OFF SO THAT WE CAN COME HELP HIM. PT VERBALIZES UNDERSTANDING
--- NOTE | 2016-11-26 11:11 | NUR ---
PT HAS SET OFF BED ALARM SEVERAL TIMES AND STAFF WILL GO INTO ROOM TO HELP PT BACK IN BED HE CONTINUES TO TURN BA OFF HIMSELF. PT IS HELPED BACK IN BED AND ASKED AGAIN TO NOT TURN OFF BA HIMSELF. PT IS REFUSING LAB WORK X2 TIMES TODAY.
--- NOTE | 2016-11-26 12:01 | NUR ---
Patient Name: FIDE ATWOOD Encounter No: [id number] : 1960 Primary Insurance: MEDICAID [facility] [place] Date: 11-19-2016 Planned Disposition: Care Home Facility External Planned Provider: : TANJA SALDANA [facility] MEDICAID BED DCP follow-up note: CM CALLED [employer], , SPOKE TO KALE AND REVIEWED PT'S CASE; PT DOES NOT HAVE A MENTAL HEALTH DIAGNOSIS, THE AGITATION WAS ISOLATED AND PT IS NOT A DANGER TO SELF OR OTHERS IN THE DOCTORS OPINION. PT DOES NOT REQUIRE KAYLEY SCREENING FOR ADMISSION TO [facility] FACILITY. CM RECEIVED CALL FROM MAIKOL, ADVISED OF ABOVE. MAIKOL ADVISED THAT [facility] WILL ACCEPT PT TODAY AND WILL WHITE KID BUFFER VIA VAN. LILIANE NOTIFIED PT WHO DID NOT REMEMBER EVER MEETING CM AND IS IN AGREEMENT WITH DISCHARGE TO [facility]. CM CALLED CYNDI ATWOOD AT HOME AND THERE WAS NO ANSWER X3. FOR DISCHARGE TO [facility], CM TO FAX DISCHARGE INFORMATION TO TANJA AT [phone]. NURSE REPORT TO BE CALLED TO DUSTINLEANA AT [phone]. DUSTINLEANA TO ARRANGE VAN WHITE KID BUFFER. Brooks Guillen, CASE MANAGEMENT
[2016-11-26 12:52] VITALS: BP 161/77
--- NOTE | 2016-11-26 16:11 | NUR ---
Patient Name: FIDE ATWOOD Encounter No: [id number] : 1960 Primary Insurance: MEDICAID [place] Anticipated DC Date: 11-26-2016 Planned Disposition: Nursing Facility DAVE Cert External Planned Provider: TANJA SALDANA, [facility] MEDICAID BED DCP follow-up note: CM RECEIVED CALL FROM CATRACHITA IBARRA OF [facility] WHO REPORTS THE FACILITY CANNOT MEET PT'S NEEDS. CM SPOKE TO [facility] WHO WILL KEEP PT ON THE LIST FOR TRANSFER TO HIS FACILITY WHEN PT COMES OFF OF ISOLATION STATUS. CM CALLED PT'S MOTHER/POA, CYNDI ATWOOD ([phone]) AND DISCUSSED PT'S ACCEPTANCE AT [facility]. CYNDI UNHAPPY, REPORTS A FRIEND GOT BAD CARE THERE AND IS SUING THE FACILTY. CM EXLAINED THAT ALL FACILITIES WITHIN THAT DISTANCE HAVE BEEN EXPLORED AND CANNOT ACCEPT PT. CYNDI REPORTS WILLINGNESS FOR DISCHARGE TO [facility] IF NO OTHER FACILITY IN THE AREA WILL TAKE PT. CYNDI REPORTS SHE IS NOT DRIVING FROM HOME TO SIGN PT INTO THE FACILITY TODAY AND WILL COME TOMORROW TO TAKE CARE OF IT THEN. CM CALLED MAIKOL, CLINICAL LIAISON FOR [facility], , NOTIFIED OF ABOVE. MAIKOL WILL HAVE CECILIO OF [facility] TO CALL CYNDI AT HOME TODAY TO WORK OUT DETAILS. CM WAITING ON CYNDI ATWOOD TO TAKE CARE OF ADMISSION PAPERWORK AT [facility], SHE ASSURED CM SHE WOULD DO IT TOMORROW. [facility] WILL NOTIFY CM WHEN ALL PAPERWORK HAS BEEN COMPLETED FOR ADMISSION TOMORROW, 11-27-16. WHEN NOTIFIED BY [facility] THAT PT'S MOTHER/POA HAS SIGNED PT IN FOR RETIREMENT CARE, FAX DISCHARGE INFORMATION TO [facility] AT [phone]. NURSE REPORT TO BE CALLED TO [facility] AT [phone]. [facility] TO ARRANGE VAN INTERVENTION MANAGER. Brooks Guillen, CASE MANAGEMENT layla Guillen
[2016-11-26 16:12] VITALS: BP 152/72
--- NOTE | 2016-11-26 17:41 | NUR ---
PT STILL TRYING TO GET OUT OF BED, GETTING PT BACK IN BED MULTIPLE TIMES TODAY. PT VERY FORGETTFUL, BUT PLEASANTLY CONFUSED. DENIES NEEDS WILL CONT TO MONITOR
--- NOTE | 2016-11-26 19:22 | NUR ---
INITIAL ROUNDS COMPLETED. PT AWAKE; DENIES ANY DISCOMFORT. BED ALARM ON. SR UP X2, CALL LIGHT WITHIN REACH.
[2016-11-26 20:23] VITALS: BP 177/71
--- NOTE | 2016-11-26 22:10 | NUR ---
PM MEDS GIVEN. FSBS 195. NO COVERAGE. PM SNACK SERVED. BED BATH DONE, BD LINENS CHANGED. MACEDO CARE COMPLETED. WILL CONTINUE TO MONITOR. SRUP X2, CALL LIGHT WITHIN REACH AND BED ALARM ON.
--- NOTE | 2016-11-26 23:54 | NUR ---
VSS. PT DNEIES ANY DISCOMFORT. WILL CONTINUE TO MONITOR. SR UP X2, CALL LIGHT WITHIN REACH AND BED ALARM ON.
[2016-11-27 00:07] VITALS: BP 150/69
--- NOTE | 2016-11-27 02:29 | NUR ---
ASSISTED TO BR WITH STAFF X1. PT UNSTEADY ON FEET. PT HAD MODERATE BM. ASSISTED BACK TO BED. WILL CONTINUE TO MONITOR. SR UP X2, CALL LIGHT WITHIN REACH AND BED ALARM ON.
--- NOTE | 2016-11-27 04:12 | NUR ---
PT ATTEMPTING TO GET OUT OF BED NUMEROUS TIME. BED ALARM IN USE. CALL LIGHT WITHIN REACH AND DOOR OPEN.
[2016-11-27 04:26] VITALS: BP 145/67
--- NOTE | 2016-11-27 05:59 | NUR ---
VSS THROUGHOUT NGIHT. SR PER CM. PT DENIED ANY DISCOMFORT. AM FSBS 85. NEEDS MET; WILL CONTINUE TO MONITOR.
[2016-11-27 07:05] LABS: BASOPHILS 0.1 % (0-2); EOSINOPHILS 1.9 % (0-7); HEMATOCRIT 27.6 % (42.0-54.0); HEMOGLOBIN 9.1 g/dL (13.5-17.5); IMMATURE GRANULOCYTES 0.1 % (0-5); LYMPHOCYTES 20.4 % (15-50); MCH 26.3 pg (26.0-34.0); MCV 79.8 fL (80.0-100.0); MONOCYTES 7.3 % (2-11); NEUTROPHILS 70.2 % (40-80); PLATELET COUNT 190 10x3/uL (130-400); RBC 3.46 10x6/uL (4.20-6.10); RDW 19.1 % (11.5-14.5); WBC 7.4 10x3/uL (4.8-10.8)
[2016-11-27 07:17] LABS: CALC OSMOLALITY 280 mosm/kg (275-300); CALCIUM 9.4 mg/dL (8.5-10.1); CHLORIDE - SERUM 107 mmol/L (98-107); CREATININE - SERUM 0.8 mg/dL (0.6-1.3); GLUCOSE 77 mg/dL (74-106); POTASSIUM - SERUM 3.3 mmol/L (3.5-5.1); SODIUM 143 mmol/L (136-145); UREA NITROGEN 5 mg/dL (7-18); eGFR NON AFRICAN AMERICAN > 90 mL/min (90-120)
--- NOTE | 2016-11-27 07:41 | NUR ---
AM ROUNDS - PT IN BED ON BACK. PT IS CONFUSED. KEEPS TRYING TO GET OUT OF THE BED. BED ALARM IS ON. IV TO LEFT WRIST WITH 1/2 NS AT 30CC/HR. MONITOR SHOWING SR, HR 55. PT RECIEVING A BREATHING TREATMENT. WILL CONTINUE TO MONITOR.
[2016-11-27 08:12] VITALS: BP 163/67
--- NOTE | 2016-11-27 12:39 | NUR ---
1000 - PT IV HAS BEEN PULLED OUT. WILL RESTART A NEW IV.
[2016-11-27 12:46] VITALS: BP 188/62
--- NOTE | 2016-11-27 13:01 | NUR ---
REMOVED IV IN LEFT HAND. CATH TIP INTACT. PT TOLERATED WELL. WILL CONTINUE TO MONITOR
--- NOTE | 2016-11-27 13:41 | NUR ---
22G IV PLACE IN RIGHT FOREARM. 2 ATTEMPTS. PT TOLERATED WILL. WILL CONTINUE TO MONITOR.
--- NOTE | 2016-11-27 13:55 | NUR ---
WHILE REPLACING PTS IV AND GETTING HIM CLEANED UP, NOTICED NICODERM PATCH WAS NO LONGER ON HIS LEFT SHOULDER. CALLED PHARMACY TO GET ANOTHER PATCH. PATCHED PLACE ON LEFT SHOULDER WITH DATE, TIME AND MY INITIALS. INSTRUCTED PT TO NOT REMOVE PATCH ADN IF IT FALLS OFF TO LET STAFF KNOW. PT IS CONFUSED. WILL CONTINUE TO MONITOR.
[2016-11-27 15:46] VITALS: BP 158/68
--- NOTE | 2016-11-27 16:52 | NUR ---
PT IN BED EATING DINNER. PT HAS BEEN TRYING TO GET OUT OF THE BED ON AND OFF ALL DAY TODAY. REPLACED IV TODAY INTO RIGHT HAND. CALL JEAN AT BEDSIDE AND PT INSTRUCTED ON HOW TO USE THE CALL LIGHT SYSTEM. BED ALARM ON, 3 SIDE RAILS UP, BED IN LOWEST POSITION. WILL CONTINUE TO MONITOR.
[2016-11-27 20:07] VITALS: BP 145/67
--- NOTE | 2016-11-27 21:41 | NUR ---
INITIAL ROUNSD COMPLETED AT 1915 HRS. PT RESTING WITH EYES CLOSED. RESP EVEN AND REGULAR. ASSESSMENT COMPLETED AT 1999 HRS. VSS. SB PER CM HR 57. IV TO RFA WITH 1/2NS AT 30CC/HR. IV PATENT. MACEDO DRAINING YELLOW URINE. PM FSBS 262. NO COVERAGE NEEDED. PT REFUSED PM PILLS. STATED HE WAS NOT GOING TO TAKE ANY DAMN MEDICINE. PT DISORIENTED TO PLACE, TIME AND SITUATION. BELIEVES HE IS IN [place]. SPEECH CLEAR. WILL CONTINUE TO MONITOR. SR UP X2, CALL LIGHT WITHIN REACH, BED ALARM ON AND DOOR OPEN.
--- NOTE | 2016-11-27 22:43 | NUR ---
PT AGITATED; INSISTING IT IS AM HE HE NEEDS TO MOVE SOME CABINETS. DOES NOT BELIVE HE IS IN THE HOSPITAL AND THAT HE IS AT HOME ON THE COUCH. ATTEMPTING TO CRAWL OUT OF BED, PULL OUT IV AND REMOVE HEART MONITOR. ATTEMPTED TO REORIENT PT WITHOUT SUCCESS. PT GETS OUT OF BED SOON STAFF LEAVES THE ROOM. GAIT VERY UNSTEADY AND WOOBLY. GLUE SPREADING MACHINE OPERATOR AT BEDSIDE.
--- NOTE | 2016-11-27 23:49 | NUR ---
PT MORE AND MORE JEANNINE. STATING HE WILL NOT BE RESPONSIBLE FOR WHAT HAPPENS TO STAFF IF WE DO NOT LET HIM GET UP AND MOVE THE CABINETS. ATTEMPTING TO REMOVE IV AND TELEMETRY. STATTES HE IS AT HOME AND NOT IN THE HOSPITAL AND THAT IT IS AM NOT PM. HALDOL 5MG IM GIVEN TOR THIGH PER August CAIN RN. STAFF AT BEDSIDE AT THIS TIME. WILL CONTINUE TO MONITOR. SR UP X2, CALL LIGHT WITHIN REACH AND BED ALARM ON.
[2016-11-28] VITALS (16 sets, daily range): BP systolic 123–175; BP diastolic 62–119
--- NOTE | 2016-11-28 00:06 | NUR ---
PT DROWSY, ORIENTED TO PERSON ONLY. WILL CONTINUE TO MONITOR. SR UP X2, CALL LIGHT WITHIN REACH, DOOR OPEN AND BED ALARM ON.
--- NOTE | 2016-11-28 00:23 | NUR ---
PT THREATENING AND ATTEMPING TO HIT STAFF. REQUIRES STAFF X2 TO KEEP PT IN BED.
--- NOTE | 2016-11-28 01:04 | NUR ---
ATIVAN 1MG IVP GIVEN FOR SEVERE AGITATION. SECURITY AT BEDSIDE. BED ALARM ON.
--- NOTE | 2016-11-28 01:43 | NUR ---
PT RESTING WITH EYES CLOSED. RESP DEEP, EVEN AND REGULAR. SR UP X3, CALL LIGHT WITHIN REACH, DOOR OPEN AND BED ALRM ON.
--- NOTE | 2016-11-28 04:24 | NUR ---
PT AWEAKE, ATTEMPTING TO CRAWL OUT OF BED. THREATENING STAFF WHEN PUTTING BSCK TO BED. PT ALSO ATTEMPTING TO PULL OUT MACEDO. ORIENTED TO PERSON ONLY. INSISYS HE IS HOME AND NEEDS TO GO TO WORK. ATTEMPTED TO REORIENT WITHOUT SUCCESS, STAFF X2 IN ROOM FOR ANTONY. ATIVAN 1MG SIVP GIVEN. PT KICKING AT STAFF. SR UP X2, CALL LIGHT WITHIN RECH, BED ALARM ON AND STAFF X2 IN ROOM.
--- NOTE | 2016-11-28 05:01 | NUR ---
PT GROGGY BUT STILL ATTEMPTING TO CRAWL OUT OF BED AND ARGUING WITH STAFF. PT ATTEMPTING TO CRAWL OUT OF BED SOON STAFF LEAVE ROOM. ESSENTIALLY A ONE ON ONE FOR SAFETY. ALSO ATTEMPTING TO PULL OUT MACEDO. CAR CHASER CURRENTLY AT BEDSIDE. SR UP X2,CALL LIGHT WITHIN REACH AND BED ALARM ON.
--- NOTE | 2016-11-28 06:12 | NUR ---
PT CONTINUES TO CRAWL OUT OF BED SOON STAFF LEAVES ROOM. STAFF AT BEDSIDE CONTINUOUSLY FOR SAFETY. WILL CONTINUE TO MONITOR. SR UP X3, BED ALARM ON.
[2016-11-28 06:14] LABS: BASOPHILS 0.2 % (0-2); EOSINOPHILS 2.2 % (0-7); HEMATOCRIT 29.3 % (42.0-54.0); HEMOGLOBIN 9.7 g/dL (13.5-17.5); IMMATURE GRANULOCYTES 0.2 % (0-5); LYMPHOCYTES 27.6 % (15-50); MCH 26.4 pg (26.0-34.0); MCHC 33.1 g/dL (31.0-37.0); MCV 79.8 fL (80.0-100.0); MONOCYTES 6.6 % (2-11); NEUTROPHILS 63.2 % (40-80); PLATELET COUNT 189 10x3/uL (130-400); RBC 3.67 10x6/uL (4.20-6.10); RDW 18.9 % (11.5-14.5); WBC 6.2 10x3/uL (4.8-10.8)
[2016-11-28 06:32] LABS: ALKALINE PHOSPHATASE 125 U/L (46-116); ALT (SGPT) 37 U/L (10-68); BILIRUBIN - TOTAL 0.29 mg/dL (0.2-1.3); CALCIUM 9.6 mg/dL (8.5-10.1); CARBON DIOXIDE 26.9 mmol/L (21.0-32.0); CHLORIDE - SERUM 108 mmol/L (98-107); CREATININE - SERUM 0.8 mg/dL (0.6-1.3); GLUCOSE 106 mg/dL (74-106); PROTEIN - SERUM 8.1 g/dL (6.4-8.2); SODIUM 145 mmol/L (136-145); eGFR NON AFRICAN AMERICAN > 90 mL/min (90-120)
[2016-11-28 06:33] LABS: CALC OSMOLALITY 286 mosm/kg (275-300); POTASSIUM - SERUM 3.9 mmol/L (3.5-5.1); UREA NITROGEN 7 mg/dL (7-18)
--- NOTE | 2016-11-28 07:27 | NUR ---
DOMENIC, TOE PUNCHER RN, STATES SHE GAVE THE ONE TIME ORDER FOR HALDOL TO THE PT LAST NIGHT.
--- NOTE | 2016-11-28 07:30 | NUR ---
AM ROUNDS - PT IN BED AND APEARS TO BE SLEEPING. RESPIRATIONS AT EQUAL AND NON LABORED. 1/2 NS IN RIGHT FA AT 30CC/HR. MONITOR SHOWING SB, HR 42. RESPITORY TECH IN ROOM TRYING TO GET HIS TO WAKE UP AND COUGH. PT RECIEVED ATIVAN LAST NIGHT. PT RESPONDED TO PAINFUL STIMULI AND VOICE. PT IS VERY "GROGGY". WILL CONTINUE TO MONITOR.
--- NOTE | 2016-11-28 10:02 | NUR ---
0755-PT IS LATHARGIC, RESPONDS TO PAINFUL STIMULI. 0803-TEMPORAL TEMP IS 85.4. AC WAS ON HIGH AT THE LOWEST SETTING AND A SHEET. PLACED A WARM BLANKET AND ANOTHER BLANKET ON TOP OF THAT AND TURNED AC OFF TO ROOM, ALL PATIENT HAD ON WAS A SHEET 0830-HR DROPPED TO 38. 0910-PT IS MOVING AROUND IN THE BED SLIGHTLY TRYING TO COVERING HIMSLEF WITH THE BLANKET. REFUSES TO EAT 1000-TEMPORAL TEMP AT 85.0. UNABLE TO GET A RECTAL TEMP EVEN WITH A DISPOSABLE THERMOMETER DR. NUNO NOTIFIED. PT WAKES TO US MOVING HIM AND TALKING TO HIM BUT QUICKLY GOES BACK TO SLEEP. NEW ORDER RECIEVED TO TRANSFER TO ICU 1010-CHANEL WELLS NOTIFIED OF TRANSFER
--- NOTE | 2016-11-28 10:30 | NUR ---
REC'D PT. TO ROOM [address] NUNO SAW PT. ON FLOOR. TO ICU FOR HYPOTHERMIA. MED 2 RN RE[PORTS TEMPORAL TEMP OF 85.4. TEMPORAL TEMP HERE IN ICU IS 86 TEMPORAL. DEL HUGGAR PUT ON. BLANKETS PROVIDED AND PLACED ON PT. AND BLANKET APPLIED AROUNG HEAD OVER BILAT SHOULDER TO HELP PREVENT HEAT LOSE AT HEAD. HOOKED UP TO CM. SINUS AMY RATE IN 50'S. SATTING 93% ON RA. LETHARGIC AND CONFUSED. I ORIENTED HIM TO PLACE, TIME AND SITUATION. RIGHT FOREARM PIV. DRSG CD&I. ORANGE STERILE CAP IN PLACE. SL. PPP. MARCUS. AROUSES TO VERBAL STIMULI. IS EXTREMELY AGITATED WHEN AWAKENS. EXPLAINED TO HIM HE WAS SICK IN THE HOSPITAL. I ORIENTED HIM AGAIN TO PLACE AND SITUATION. HELLEN PATENT TO GRAVITY. CLWR. CPOC.
--- NOTE | 2016-11-28 10:45 | NUR ---
1030-TRANSFERED PT TO ICU
--- NOTE | 2016-11-28 11:32 | NUR ---
CHECKED FOR RANDOM VANC LEVEL BEFORE INFUSING VANC BUT NONE AVAILABLE.
--- NOTE | 2016-11-28 13:42 | NUR ---
LETHARGICNESS HAS RESOLVED. CALM AND COOPERATIVE. LUNCH TRAY SERVED. REFUSED TO EAT FOR ME. VSS. TEMP = 96.8 TEMPORAL.
--- NOTE | 2016-11-28 14:30 | NUR ---
TRYING TO CLIMB OOB. REMINDED HIMN TO STAY IN BED.
--- NOTE | 2016-11-28 16:13 | NUR ---
DEL DONNAAR OFF
--- NOTE | 2016-11-28 16:21 | NUR ---
TRYING TO CLIMB OOB. REMINDED HIM TO STAY IN BED.
--- NOTE | 2016-11-28 16:25 | NUR ---
TRYING TO CLIMB OOB. STATES "I GOT TO GET TO WORK". REMINDED HIM TO STAY IN BED. I AM SITTING IN FRONT OF DOORWAY SO I CAN SEE HIM. CONTINUES TO TRY TO CLIMB OOB BUT IS WEAK. REORIENTED TO PLACE,TIME AND SITUATION. CLWR. CPOC.
--- NOTE | 2016-11-28 16:57 | NUR ---
CONTINUED TO TRY TO CLIMB OOB. PULLING AT MACEDO AND PIV. PLACED IN RESTRAINTS TO KEEP FROM FALLING OR PULLING LINES OUT.
--- NOTE | 2016-11-28 17:07 | NUR ---
REFUSED DINNER TRAY
--- NOTE | 2016-11-28 17:32 | NUR ---
PULLING AT RESTRAINTS AND SCDS AND ANYTHING ELSE HE CAN GRAB. TRYING TO CLIMB OOB.
--- NOTE | 2016-11-28 17:35 | NUR ---
HOLLERS OUT "DONNA"!!.TRYING TO CLIMB OOB. PULLING AT RESTRAINTS.
--- NOTE | 2016-11-28 17:37 | NUR ---
EDWIN OUT "ZOILA COME IN HERE"!! TOLD HIM HE WAS IN THE HOSPITAL AND HE STATES "NO I AM AT MY [facility] AT [place]." REMAINS CONFUSED BUT PLEASANT AT THIS TIME.
--- NOTE | 2016-11-28 17:58 | NUR ---
CONTINUES IN RESTRAINTS TO KEEP FROM HURTING HIMSELF. TRYING TO CLIMB OOB. AGITATED. HOLLERING OUT.
--- NOTE | 2016-11-28 19:00 | NUR ---
REPORT RECIEVED, INITIAL ASSESSMENT COMPLETE, PLEASE SEE FLOW SHEETS FOR DETAILS. BED LOW AND LOCKED. PT CONFUSED AND REFUSES TO ANSWER SOME QUESTIONS. RESTRAINED BECAUSE HE IS CONTINUALLY PULLING AT TUBES AND LINES. REFUSES TO KEEP HIS SCD'S ON. VSS ATT, WILL CONTINUE POC.
--- NOTE | 2016-11-28 21:10 | NUR ---
PT REFUSED TO TAKE MEDS, KEEPS YELLING OUT OBSENITIES AND CALLING FOR PEOPLE WHO ARE NOT HERE. ATTEMT TO REORIENT FREQUENTLY WITH NO IMPROVEMENT. SBP 167, INFORMED PT HE NEEDED TO TAKE HIS BP MEDS BECAUSE OF THIS AND HE STATED HE KNEW THIS BUT DID NOT WANT TO TAKE THEM MEDS AND "THE POLICE WILL EXPLAIN WHEN THEY GET HERE."
--- NOTE | 2016-11-28 22:23 | NUR ---
GAVE VANCOMYCIN ORDERED AND PT CONTINUE TO REFUSE BP MEDS AND WAS TOLD HIS BP WAS 169/84. HE STATED HE KNEW THIS AND DID NOT WANT THE MEDS.
--- NOTE | 2016-11-28 23:00 | NUR ---
REASSESSMENT COMPLETE, PLEASE SEE FLOW SHEETS FOR DETAILS. PT STILL CONFUSED AND CONTINUES TO REFUSE MEDS. BP ELEVATED BUT OTHER VSS, WILL CONTINUE POC.
[2016-11-29] VITALS (24 sets, daily range): BP systolic 142–180; BP diastolic 69–111
--- NOTE | 2016-11-29 01:00 | NUR ---
PT VERY AGGITATED, YELLING OUT AND SHAKING BEDRAILS. BP ELEVATED AND CONTINUES TO REFUSE MEDS. OTHER VSS, WILL CONTINUE POC.
--- NOTE | 2016-11-29 03:00 | NUR ---
REASSESSMENT COMPLETE, PLEASE SEE FLOW SHEETS FOR DETAILS. BED LOW AND LOCKED, CALL LIGHT IN REACH. RESTRAINTS CHECKED AND SECURED WITH QUICK RELEASE KNOTS. BP ELEVATED STILL AND PT CONTINUE TO REFUSE TO TAKE MEDS. ALL OTHER VSS, WILL CONTINUE POC.
[2016-11-29 04:58] LABS: BASOPHILS 0.1 % (0-2); EOSINOPHILS 0.5 % (0-7); HEMATOCRIT 29.4 % (42.0-54.0); HEMOGLOBIN 9.6 g/dL (13.5-17.5); IMMATURE GRANULOCYTES 0.2 % (0-5); LYMPHOCYTES 10.8 % (15-50); MCH 26.4 pg (26.0-34.0); MCHC 32.7 g/dL (31.0-37.0); MCV 80.8 fL (80.0-100.0); MONOCYTES 5.3 % (2-11); NEUTROPHILS 83.1 % (40-80); PLATELET COUNT 225 10x3/uL (130-400); RBC 3.64 10x6/uL (4.20-6.10); RDW 19.2 % (11.5-14.5)
--- NOTE | 2016-11-29 04:59 | NUR ---
PT CONTINUE TO YELL OUT AND WILL NOT COOPERATE. ELEVATED SBP AT 167, OTHER VSS, WILL CONTINUE POC.
[2016-11-29 05:07] LABS: WBC 14.5 10x3/uL (4.8-10.8)
[2016-11-29 05:24] LABS: ANION GAP 15.6 mmol/L (8-16); BILIRUBIN - TOTAL 0.38 mg/dL (0.2-1.3); CALCIUM 9.5 mg/dL (8.5-10.1); CARBON DIOXIDE 25.6 mmol/L (21.0-32.0); POTASSIUM - SERUM 4.2 mmol/L (3.5-5.1); PROTEIN - SERUM 7.8 g/dL (6.4-8.2)
[2016-11-29 05:25] LABS: CREATININE - SERUM 1.6 mg/dL (0.6-1.3)
--- NOTE | 2016-11-29 07:20 | NUR ---
ASSESSMENT COMPLETE. PATIENT IS NOT COOPERATIVE. VERY AGITATED AND VERBALLY DISRUPTIVE. YELLING FOR THE POLICE AND FAMILY MEMBERS. I TRIED TO EXPLAIN TO HIM THAT THIS IS THE HOSPITAL AND HE IS IN A CONTROLLED ENVIRONMENT AND HE IS SAFE. HE INSISTS THAT "THE LADY TOOK HIS BAGS" WHEN REFERING TO THE EVS LADY THAT TOOK OUT HIS TRASH. SEE FLOWSHEET FOR ASSESSMENT FINDINGS. PULSES PALP, ON ROOM AIR, NSR. VOICES APPETITE.
--- NOTE | 2016-11-29 09:11 | NUR ---
CONTINUES TO BE VERBALLY DISRUPTIVE, CONSTANTLY YELLING FOR HELP FROM THE POLICE. REORIENTED PATIENT. ASSISTED WITH MEAL.
--- NOTE | 2016-11-29 09:20 | NUR ---
Patient Name: FIDE ATWOOD Encounter No: [id number] : 1960 Primary Insurance: MEDICAID [facility] [place] Date: 11-26-2016 Planned Disposition: Nursing Facility DAVE Cert External Planned Provider: TANJA SALDANA [facility] MEDICAID BED DCP follow-up note: CM REVIEWED CHART, FAXED UPDATE TO MAIKOL, CLINICAL LIAISON FOR TANJA SALDANA, AT [phone]. WHEN NOTIFIED BY TANJA THAT PT'S MOTHER/POA HAS SIGNED PT IN FOR [facility]ER C[facility], FAX DISCHARGE INFORMATION TO TANJA AT [phone]. NURSE REPORT TO BE CALLED TO TANJA AT [phone]. TANJA TO ARRANGE VAN LAND SURVEYING PARTY CHIEF. Brooks Guillen, CASE MANAGEMENT
--- NOTE | 2016-11-29 09:23 | NUR ---
NUTRITION MONITORING & EVAL CHART REVIEWED. REMAINS IN ISOLATION, RESTRAINED. 25% INTAKE [facility] SOFT DIET WITH NURSING ASSIST. WILL CONTINUE TO PROVIDE DIET, MONITOR PO INTAKE. RD FOLLOWING
--- NOTE | 2016-11-29 11:11 | NUR ---
DR. MEJIA AT BEDSIDE. NEW ORDERS RECEIVED. PT CONTINUES YELLING OUT
--- NOTE | 2016-11-29 11:20 | NUR ---
REASSESSMENT COMPLETE, SEE FLOWSHEET FOR DETAILS.
--- NOTE | 2016-11-29 13:02 | NUR ---
CALLED PATIENT'S MOTHER, GAVE UPDATE. QUESTIONS ANSWERED. PATIENT CALM, RESTING WITH EYES SHUT. VSS.
--- NOTE | 2016-11-29 14:24 | NUR ---
DR. SHANKAR AT BEDSIDE. NO NEW ORDERS. BC X2 HAVE BEEN DRAWN
--- NOTE | 2016-11-29 15:17 | NUR ---
PT IS CONTINUING TO CONSTANTLY YELL OUT FOR HELP. REORIENTATION PROVIDED, DOES NOT HELP. PRN MEDS GIVEN
--- NOTE | 2016-11-29 16:45 | NUR ---
VSS. PATIENT REMAINS AGITATED
--- NOTE | 2016-11-29 18:10 | NUR ---
PATIENT RESTING QUIETLY. MONITORING VS.
--- NOTE | 2016-11-29 19:00 | NUR ---
REPORT RECEIVED. ASSESMENT COMPLETED. PATIENT IN SEMIFOWLERS POSITION WITH EYES CLOSED. OPENS EYES AND THEN FALLS BACK TO SLEEP DURING ADMISSION. NO VISUAL CUES OF DISTRESS NOTED.
--- NOTE | 2016-11-29 20:45 | NUR ---
PATIENT REFUSES TO TAKE APRESOLINE. EVEN CRUSHED IN PUDDING. PATIENT TRYING TO GRAB THIS NURSES ARMS EVEN THOUGH HE IS IN RESTRAINTS. DID NOT CONTINUE TO TRY SECONDARY TO AGITATION. PATIENT QUICKLY DOZED BACK OFF ONCE COVERED UP. BATH AND LINEN CHANGE WAS DONE AT THIS TIME. DROPLET ISOLATION BEING OBSERVED.
--- NOTE | 2016-11-29 21:30 | NUR ---
NO VISITORS AT THIS TIME. PATIENT REPOSTIONED FOR COMFORT.
--- NOTE | 2016-11-29 23:00 | NUR ---
PATIENT IN SEMIFOWLERS POSITION RESTING WITH EYES CLOSED. NO VISUAL CUES OF DISTRESS NOTED.
[2016-11-30] VITALS (24 sets, daily range): BP systolic 121–176; BP diastolic 65–97
[2016-11-30 03:52] LABS: BASOPHILS 0.1 % (0-2); EOSINOPHILS 0.5 % (0-7); HEMATOCRIT 30.9 % (42.0-54.0); IMMATURE GRANULOCYTES 0.2 % (0-5); LYMPHOCYTES 15.5 % (15-50); MCH 26.1 pg (26.0-34.0); MCHC 32.4 g/dL (31.0-37.0); MCV 80.7 fL (80.0-100.0); NEUTROPHILS 77.7 % (40-80); PLATELET COUNT 224 10x3/uL (130-400); RBC 3.83 10x6/uL (4.20-6.10); RDW 19.1 % (11.5-14.5); WBC 12.2 10x3/uL (4.8-10.8)
--- NOTE | 2016-11-30 04:00 | NUR ---
ENTERED PATIENTS ROOM TO DO I&O'S SATS IN THE 60'S. REPOSITIONED PATIENT, TRIED TO ENCOURAGE COUGH. DUE TO DEGREE OF CONFUSION, PATIENT NOT ABLE TO FOLLOW COMMANDS. TRIED TO GET PATIENT TO COUGH USING YAUNKER SUCTION WITH NO SUCCESS. OBTAINED AN OXYMIZER AND LET PETTY WITH RESPIRATORY KNOW. OXYMIZER PUT ON 16L, AGAIN REPOSITIONED PATIENT. YAUNKER TRIED AGAIN TO AID IN COUGH. PATIENT FINALLY DID COUGH UP SOME THICK YELLOW MUCOUS. SATS IMPROVED TO 92% WILL CONTINUE TO MONITOR AND ENCOURAGE.
[2016-11-30 04:29] LABS: ALBUMIN 2.9 g/dL (3.4-5.0); ANION GAP 13.8 mmol/L (8-16); BILIRUBIN - TOTAL 0.37 mg/dL (0.2-1.3); CALCIUM 9.3 mg/dL (8.5-10.1); POTASSIUM - SERUM 3.8 mmol/L (3.5-5.1); PROTEIN - SERUM 7.7 g/dL (6.4-8.2)
[2016-11-30 04:33] LABS: CREATININE - SERUM 2.1 mg/dL (0.6-1.3)
--- NOTE | 2016-11-30 07:18 | NUR ---
FAMILY MEMBER CALLED. VERIFIED PASSWORD. UPDATE PROVIDED.
--- NOTE | 2016-11-30 07:35 | NUR ---
ASSESSMENT COMPLETE. PT AROUSES TO VOICE, SOMEWHAT LETHARGIC. REFUSED TO FOLLOW COMMANDS. AGITATED WHEN HE WAKES UP. ON 10L NC UPON ENTRANCE TO ROOM, TURNED DOWN TO 4L NC WHILE IN ROOM, PATIENT'S SATURATION HELD. NSR. S1S2 NOTED RADIAL AND PEDAL PULSES PALP. ACTIVE BOWEL SOUNDS X4. REFUSED BREAKFAST TRAY. GENERALIZED WEAKNESS. LT FOREARM PIV APPEARS INFILTRATED. STOPPED INFUSION, PLAN TO RESITE IV. FOR OTHER ASSESSMENT FINDINGS SEE FLOWSHEET
--- NOTE | 2016-11-30 09:40 | NUR ---
PLACED 18G PIV IN LT FOREARM. REMOVED RT FOREARM PIV.
--- NOTE | 2016-11-30 10:40 | NUR ---
DR. MEJIA AT BEDSIDE. ORDERS FOR PATIENT TO HAVE PERCUSSION DONE WITH BREATHING TREATMENT FOR ADDITIONAL HELP WITH COUGHING SINCE PATIENT REFUSES TO TAKE MEDICATIONS.
--- NOTE | 2016-11-30 11:14 | NUR ---
REASSESSMENT COMPLETE, SEE FLOWSHEET FOR DETAILS. PATIENT CALM. RESTING WITH EYES SHUT.
--- NOTE | 2016-11-30 13:01 | NUR ---
PT AT BEDSIDE. PACKAGING MECHANIC ROGELIO TALKING WITH HER
--- NOTE | 2016-11-30 13:03 | NUR ---
DR. CARLSON AND DR. SHANKAR AT BEDSIDE.
--- NOTE | 2016-11-30 15:50 | NUR ---
REASSESSMENT COMPLETE. SEE FLOWSHEET FOR DETAILS. PATIENT AWAKE, STATES HE IS IN HOSPITAL. CONVERSATIONAL, BUT REQUESTS TO GO BACK TO SLEEP. REMOVED DEL THORNE
--- NOTE | 2016-11-30 17:40 | NUR ---
PT CALM, COOPERATIVE, REQUESTS TO SLEEP. DENIES NEEDS.
--- NOTE | 2016-11-30 19:21 | NUR ---
REPORT RECIEVED. ASSESSMENT COMPLETE PER FLOW SHEET. PT AWAKE CONFUSED TO TIME AND SITUATION. REORIENTED. DENIES PAIN OR NEEDS. TEMP 96.7 BEAR HUGGER TURNED ON LOW. REPOSITIONED ON R SIDE. NEEDS MET.
--- NOTE | 2016-11-30 21:00 | NUR ---
NO NEW CHANGES. VSS. NO FAMILY AT THIS TIME.
--- NOTE | 2016-11-30 23:34 | NUR ---
REASSESSMENT COMPLET EPER FLOW SHEET. VSS. NO NEW CHANGES. PT SLEEPING COMFORTABLY. TEMP 97.6 NO NEW CHANGES.
[2016-12-01] VITALS (20 sets, daily range): BP systolic 113–175; BP diastolic 55–84
--- NOTE | 2016-12-01 03:16 | NUR ---
REASSESSMENT COMPLETE PER FLOW SHEET. NO NEW FINDINGS. VSS. PT RESPONDS TO VERBAL STIMULI ANSWERS QUESTIONS APPROPRIATELY. CONFUSED TO TIME AND SITUATION. TEMP 97.2 ORAL. DENIES NEEDS. WILL CONTINUE TO MONITOR. RESTING COMOFORTABLY.
[2016-12-01 04:16] LABS: BASOPHILS 0.1 % (0-2); EOSINOPHILS 0.6 % (0-7); HEMATOCRIT 27.8 % (42.0-54.0); IMMATURE GRANULOCYTES 0.1 % (0-5); MCH 26.4 pg (26.0-34.0); MCHC 32.4 g/dL (31.0-37.0); MCV 81.5 fL (80.0-100.0); MEAN PLATELET VOLUME 11.4 fL (7.4-10.4); NEUTROPHILS 73.2 % (40-80); PLATELET COUNT 213 10x3/uL (130-400); RBC 3.41 10x6/uL (4.20-6.10); WBC 9.6 10x3/uL (4.8-10.8)
[2016-12-01 04:42] LABS: ALBUMIN 2.7 g/dL (3.4-5.0); BILIRUBIN - TOTAL 0.39 mg/dL (0.2-1.3); CALCIUM 9.3 mg/dL (8.5-10.1); CARBON DIOXIDE 26.9 mmol/L (21.0-32.0); POTASSIUM - SERUM 3.9 mmol/L (3.5-5.1); PROTEIN - SERUM 7.2 g/dL (6.4-8.2)
--- NOTE | 2016-12-01 05:20 | NUR ---
NO NEW FINDINGS. VSS. PT SLEEPING COMFORTABLY.
--- NOTE | 2016-12-01 07:45 | NUR ---
ASSESSMENT COMPLETE. CONFUSED TO TIME AND SITUATION. PLEASANT AFFECT. S1S2 NOTED, RADIAL AND PEDAL PULSES PALP. NSR. PATIENT APPROPRIATE AND CALM. DIMINISHED RLL, LLL. 2L NC. ACTIVE BOWEL SOUNDS X4. [place] DRAINING CLEAR/YELLOW URINE. FOR OTHER ASSESSMENT FINDINGS SEE FLOWSHEET.
--- NOTE | 2016-12-01 08:05 | EC ---
PATIENT:FIDE ATWOOD DATE OF SERVICE: 11/14/16 SEX: M MEDICAL RECORD: [id number] DATE OF : 56 LOCATION:[id number] AGE OF PATIENT: 56 ADMISSION DATE: 11/14/16 REFERRING PHYSICIAN: INTERPRETING PHYSICIAN: CLIFTON SANDOVAL MD ECHOCARDIOGRAM REPORT ECHO CHARGES 4 ECHO COMPLETE CLINICAL DIAGNOSIS: MRSA ECHOCARDIOGRAPHIC MEASUREMENTS (adult normal given) AC root (d.<3.7cm) 3.2 LV Septum d (<1.2 cm> 1.5 Valve Excursion 1.6 LV Septum (systole) 2.0 Left Atria (s.<4.0cm> 3.8 LVPW d(<1.2cm) 1.6 RV (d.<2.3cm) 2.3 LVPW (sytole) 2.2 LV diastole(<5.6CM) 5.6 MV E-F(>70mm/sec) LV systole 3.6 LVOT Diameter 1.9 MV exc.(>10mm) Est.ejection fraction (50-75%) Pericardial Effusion N DOPPLER: LVIT A 78.0 E 71.0 LA RVSP 38.3 LVOT 94.0 AOP1/2T Asc. Ao 172 RVOT 61.0 RA PA 100 AV Gradient Peak 12.0 AV Mean 4.8 AV Area 1.5 MV Gradient Peak 5.0 MV Mean 2.2 MV Area COMMENTS: Storeperson: Juan ODONNELLOE C T Tech:Pina Reyes TAPE# PACS DATE OF SERVICE: 11/17/2016 Echocardiogram FINDINGS: 1. Left ventricular chamber size is within normal limits. Left ventricular systolic function is normal. Overall ejection fraction estimated at 55%. 2. Left atrium is within normal limits at 3.8 cm. Right atrium and right ventricular chamber sizes are mildly dilated. 3. Valvular structures have normal structure and motion. No evidence of ECHOCARDIOGRAM REPORT [id number] FIDE ATWOOD vegetative endocarditis. 4. Doppler interrogation reveals moderate mitral regurgitation, moderate tricuspid regurgitation and mild aortic insufficiency. No other valvular insufficiency or stenosis. Pulmonary systolic pressure is preserved at 38 mmHg. 5. No evidence of pericardial effusion or left ventricular thrombus. TRANSINT:[id number] Voice Confirmation ID: [id number] DOCUMENT ID: [id number] 11/26/2016 Edited to correct date of service, dmm. CLIFTON SANDOVAL MD at 0805 CC: [id number] DICTATION DATE: 11/19/16 1023 CASING PULLER: 11/19/16 1427 ADM IN [facility] [address] [phone]
--- NOTE | 2016-12-01 09:30 | NUR ---
AM MEDS GIVEN. NO VISITORS AT THIS TIME. CRUSHED MEDS AND MIXED WITH APPLESAUCE
--- NOTE | 2016-12-01 10:08 | NUR ---
NUTRITION MONITORING & EVAL CHART REVIEWED. NURSING REPORTS PT WITH 100% INTAKE REG MECH SOFT BREAKFAST. RD FOLLOWING
--- NOTE | 2016-12-01 10:10 | NUR ---
SUPERVISED RELEASE OF RESTRAINTS. PATIENT HAD LOOSE BROWN STOOL, CHANGED GOWN AND BEDPAD
--- NOTE | 2016-12-01 11:30 | NUR ---
REASSESSMENT COMPLETE, SEE FLOWSHEET FOR DETAILS.
--- NOTE | 2016-12-01 12:13 | NUR ---
MOTHER ON PHONE. UPDATE PROVIDED. QUESTIONS ANSWERED
--- NOTE | 2016-12-01 13:10 | NUR ---
PATIENT PULLING AT GOWN, IV, AND HAD A LARGE LIQUID BM. DR. MEJIA AT BEDSIDE. CLEANED PATIENT UP, REORIENTED, ASKED HIM NOT TO PULL IV LINES. SUPERVISING RELEASE OF RESTRAINTS.
--- NOTE | 2016-12-01 15:30 | NUR ---
REASSESSMENT COMPLETE, SEE FLOWSHEET FOR DETAILS.
--- NOTE | 2016-12-01 15:30 | NUR ---
REASSESSMENT COMPLETE, SEE FLOWSHEET FOR DETAILS. TITRATING PROPOFOL TOLERATED
--- NOTE | 2016-12-01 16:04 | NUR ---
SPOKE WITH DR. MEJIA ABOUT POSSIBLY TRANSFERRING PATIENT. SAID HE NEEDS TO FIND PLACEMENT FROM ICU IN A PSYCH FACILITY
--- NOTE | 2016-12-01 17:05 | NUR ---
PT EATING DINNER WITH NO ASSISTANCE REQUIRED.
--- NOTE | 2016-12-01 19:00 | NUR ---
REPORT RECEIVED. ASESSMENT COMPLETED. NEW XFER ORDERS RECEIVED FROM ROBYN VILLASENOR, AND ROSS. PT WILL BE MOVED TO ROOM 2230. VSS. TEMP CURRENTLY 97.8. VSS. WILL CONTINUE TO MONITOR.
--- NOTE | 2016-12-01 19:00 | NUR ---
REPORT RECEIVED AND ASSESSMENT COMPLETED. XFER ORDERS RECEIVED FROM ROBYN CALVO, AND MAICO HAWKINS, TEMP CURRENTLY 97.8. WILL XFER TO 404
--- NOTE | 2016-12-01 20:15 | NUR ---
RECIEVED FROM ICU, ASSESSMENT COMPLETED, NO ACUTE DISTRESS NOTED, DENIES PAIN OR NEEDS AT THIS TIME, FALL AND ISOLATION PRECAUTIONS INITIATED, ORIENTED TO ROOM AND CL, WILL MONITOR
--- NOTE | 2016-12-01 22:36 | NUR ---
MEDS GIVEN PER OCT, EYE DROPS UNAVAIALBLE, WILL CONTACT ICU, PT INCONT BOWEL, CHANGED AND REPOSITIONED, JONNIE WELL, CL IN REACH
[2016-12-02] VITALS: BP 140/61
--- NOTE | 2016-12-02 01:19 | NUR ---
RESTING WITH EYES CLOSED, RESP WITH EASE, NO DISTRESS NOTED, SAFETY AND ISOLATION PRECAUTIONS IN PLACE, CL IN REACH
--- NOTE | 2016-12-02 03:23 | NUR ---
CONTINUES TO REST WITH EYES CLOSED, RESP WITH EASE, NO DISTRESS NOTED, WILL CONTINUE TO MONITOR, CL IN REACH
--- NOTE | 2016-12-02 05:41 | NUR ---
AM MEDS GIVEN PER EDER, JONNIE GRIGSBY, CRITICCELIO PIKE AT 96.1, BED ALARM AND SCD'S ON, SR' UP, CL IN REACH
[2016-12-02 06:52] LABS: BASOPHILS 0.1 % (0-2); EOSINOPHILS 1.6 % (0-7); HEMATOCRIT 26.2 % (42.0-54.0); HEMOGLOBIN 8.5 g/dL (13.5-17.5); IMMATURE GRANULOCYTES 0.2 % (0-5); LYMPHOCYTES 11.4 % (15-50); MCH 26.1 pg (26.0-34.0); MCHC 32.4 g/dL (31.0-37.0); MCV 80.4 fL (80.0-100.0); MEAN PLATELET VOLUME 11.1 fL (7.4-10.4); MONOCYTES 7.3 % (2-11); NEUTROPHILS 79.4 % (40-80); PLATELET COUNT 192 10x3/uL (130-400); RBC 3.26 10x6/uL (4.20-6.10); RDW 18.4 % (11.5-14.5)
[2016-12-02 07:13] LABS: ALBUMIN 2.5 g/dL (3.4-5.0); ANION GAP 14.1 mmol/L (8-16); BILIRUBIN - TOTAL 0.4 mg/dL (0.2-1.3); CALCIUM 8.7 mg/dL (8.5-10.1); CARBON DIOXIDE 23.5 mmol/L (21.0-32.0); CREATININE - SERUM 1.9 mg/dL (0.6-1.3); POTASSIUM - SERUM 3.6 mmol/L (3.5-5.1); PROTEIN - SERUM 6.8 g/dL (6.4-8.2)
--- NOTE | 2016-12-02 07:47 | NUR ---
TEMP 95.7. THERMOMETER IN ROOM ON 70, TURNED IT UP TO 85. APPLIED A WARM BLANKET ONTO PATIENT. WITH 2 ADDITIONAL BLANKETS OVER IT.
[2016-12-02 08:21] VITALS: BP 126/54
--- NOTE | 2016-12-02 08:37 | NUR ---
PAGEDk RAMOS, NURSE PRACTITIONER. TO NOTIFY HER OF TEMP. WAITING FOR HER TO CALL BACK.
--- NOTE | 2016-12-02 08:41 | NUR ---
SPOKE WITH HUBERT, SHE STATED TO PUT A BEAR HUGGER ON HIM AND WARM BLANKET AROUND HIS HEAD.
--- NOTE | 2016-12-02 08:51 | NUR ---
PUT WARM BLANKET BEHIND PATIENT'S NECK AND WRAPPED AROUND EACH SIDE OF FACE. PATIENT IS EATING BREAKFAST.
--- NOTE | 2016-12-02 09:13 | NUR ---
DEL THORNE ON MEDIUM SETTING. TEMPERATURE 95.2 F AT THIS TIME. PATIENT'S MOTHER IS IN ROOM.
--- NOTE | 2016-12-02 11:15 | NUR ---
TEMP 97.1 F. TURN OFF DEL THORNE.
[2016-12-02 11:35] VITALS: BP 127/48
--- NOTE | 2016-12-02 13:33 | NUR ---
CM REASSESSMENT NOTE: CM SPOKE WITH PATIENTS MOTHER (CYNDI) AND SHE STATED SHE DID NOT WANT HER SON TO GO ANYWHERE BUT HOME WITH HER. CM EXPLAINED THAT [facility] IN [place] WOULD POSSIBLY ACCEPT PATIENT. PATIENTS MOTHER SAID "NO, IM TAKING HIM HOME AT DISCHARGE." CM WILL CONTINUE TO FOLLOW PATIENT WITH D/C NEEDS AND PLANS.
--- NOTE | 2016-12-02 13:55 | CN ---
PATIENT NAME:FIDE QUAN MEDICAL RECORD: [id number] : 56 LOCATION:D.MS [id number] ADMIT DATE: 11/14/16 ACCOUNT: [id number] CONSULTING PHYSICIAN: DARLIN MEJÍA MD REFERRING PHYSICIAN: LAINE POTTER MD DATE OF CONSULTATION: 12/01/2016 IDENTIFYING DATA: Mr. Quan is 56 years old. He is admitted to the hospital because of mental status changes. CHIEF COMPLAINT: Confusion. HISTORY OF PRESENT ILLNESS: I saw the patient 10 days ago before he ended up in the intensive care unit. I am asked to see him now to reevaluate. The patient is still quite confused, although not as bad as he was before he was sent to the intensive care unit. The patient tells me he has no history of psychiatric problems, no history of drug use with the exception of marijuana in his youth and that he has never seen a psychiatrist. He also tells me that he is an alcoholic, although he is evasive about how much he drinks. He says he often tries to stop, will stop briefly and then go back to drinking. I think the history he is giving me is a sincere attempt to be honest with me. It may not be correct, but I do not think he is deliberately trying to mislead me. The patient denies that he would seek to harm himself or others. He denies psychotic symptoms. His nurse says that over the past few days, he has required some p.r.n. medication for agitation, but none today. 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 PLAN: The patient has diffuse encephalopathy with generalized slowing on his EEG. He does not have symptoms that would allow me to diagnose him with schizophrenia, bipolar disorder, or major depression at this point. He cannot care for himself and has no support system. I would recommend senior care placement. If his behavior becomes out of control, that may have to be reevaluated and acute psychiatric care sought, but at this point, whatever process is going on, I suspect it is going to be chronic and he certainly cannot care for himself, he certainly is impaired cognitively and is in need of a senior care. TRANSINT:[id number] Voice Confirmation ID: [id number] DOCUMENT ID: [id number] DARLIN MEJÍA MD at 1355 CC: [id number] DICTATION DATE: 12/01/16 1725 LEGAL SUPPORT ANALYST: 12/01/16 1903 ADM IN [place] [id number] [place] [id number]
--- NOTE | 2016-12-02 14:38 | NUR ---
PATIENT IS REQUESTING PAIN MEDICATION STATED HIS PAIN IS A 7/10 IN HIS SHOULDERS.
--- NOTE | 2016-12-02 14:46 | NUR ---
REPOSITIONED PATIENT, TURNED HIM TO HIS RIGHT SIDE POSITIONED WITH PILLOWS. PATIENT STATED "OH MY SHOULDERS FEEL BETTER ALREADY, THANK YOU."
[2016-12-02 20:00] VITALS: BP 138/49
--- NOTE | 2016-12-02 20:00 | NUR ---
MACEDO CARE COMPLETED AT THIS TIME.
--- NOTE | 2016-12-02 20:00 | NUR ---
PT RECEIVED SITTING UP IN BED WATCHING TELEVISION. PT REQUESTING SCD'S TO BE REMOVED. EDUCATED PT ON BENEFITS OF SCD'S AND DVT PREVENTION. PT STATES, "I'VE HAD THEM ON ALL DAY. I DON'T WANT TO SLEEP WITH THEM ON." SCD'S REMOVED PER PT REQUEST. ASSESSMENT DONE PER FLOWSHEET. CALL LIGHT IN REACH. BED IN LOW POSITION. SIDE RAILS UP X2.
--- NOTE | 2016-12-02 20:00 | NUR ---
PT SITTING UP IN BED WATCHING TELEVISION. PT IS ALERT AND ORIENTED TO PERSON ONLY. CALL LIGHT AND H2O IN PT REACH. BED IN LOW POSITION. SIDE RAILS UP X2. MACEDO IN PLACE WITH CLEAR, YELLOW RETURN.
[2016-12-03] VITALS: BP 138/54
--- NOTE | 2016-12-03 01:15 | NUR ---
RN NOTE:PT PULLED OUT IV...BLOOD ALL OVER BED AND BEDDING. BEDDING CHANGED AND PT BATHED. ATTEMPTED TO RE-SITE IV X2 WITHOUT SUCCESS. CIARAN SITED IV TO RIGHT FA. WILL CONTINUE TO MONITOR CLOSELY. PT VERY CONFUSED. BED ALARM IN USE.
--- NOTE | 2016-12-03 01:59 | NUR ---
PT PULLED IV TO LEFT FOREARM OUT. RESITED IV TO RIGHT FOREARM WITH 20G CATHETER. FLUSHES WITHOUT PROBLEM, IV PATENT.
[2016-12-03 04:00] VITALS: BP 150/87
[2016-12-03 07:40] LABS: BASOPHILS 0.1 % (0-2); EOSINOPHILS 2.7 % (0-7); HEMATOCRIT 25.4 % (42.0-54.0); HEMOGLOBIN 8.3 g/dL (13.5-17.5); IMMATURE GRANULOCYTES 0.2 % (0-5); LYMPHOCYTES 24.5 % (15-50); MCHC 32.7 g/dL (31.0-37.0); MCV 79.6 fL (80.0-100.0); MONOCYTES 9.1 % (2-11); NEUTROPHILS 63.4 % (40-80); PLATELET COUNT 220 10x3/uL (130-400); RBC 3.19 10x6/uL (4.20-6.10); RDW 18.4 % (11.5-14.5)
[2016-12-03 07:41] LABS: WBC 8.4 10x3/uL (4.8-10.8)
[2016-12-03 07:53] LABS: ALBUMIN 2.6 g/dL (3.4-5.0); ANION GAP 11.3 mmol/L (8-16); BILIRUBIN - TOTAL 0.29 mg/dL (0.2-1.3); CALCIUM 8.9 mg/dL (8.5-10.1); CARBON DIOXIDE 24.3 mmol/L (21.0-32.0); CREATININE - SERUM 1.9 mg/dL (0.6-1.3); POTASSIUM - SERUM 3.6 mmol/L (3.5-5.1); PROTEIN - SERUM 7.1 g/dL (6.4-8.2)
--- NOTE | 2016-12-03 08:09 | NUR ---
CONFUSED, THOUGHT HE WAS HOME REDIRECTED AND TOLD HIM HE WAS AT THE HOSPITAL, DENIES NEEDS, KEEPS PULLING BEAR HUGGER OFF, BED LOWEST POSITION, CALL LIGHT IN REACH, WILL CONTINUE TO MONITOR
[2016-12-03 10:09] VITALS: BP 158/60
[2016-12-03 11:47] VITALS: BP 162/64
--- NOTE | 2016-12-03 14:15 | NUR ---
LYING IN BED,WITHOUT DISTRESS.CALL LIGHT IN REACH
[2016-12-03 16:38] VITALS: BP 160/62
[2016-12-03 19:00] VITALS: BP 145/50
--- NOTE | 2016-12-03 19:30 | NUR ---
PT RECEIVED SITTING UP IN BED WATCHING TELEVISION. BLANKET, BEAR HUGGER, AND SHEET NOTED TO BE ON SIDE OF BED. SCD'S OFF AT THIS TIME. IV TUBING NOTED TO BE LAYING ON FLOOR WITH IV CATHETER ATTACHED AND INTACT. PT NOT NOTED TO BE ACTIVELY BLEEDING AT THIS TIME TO PREVIOUS IV SITE. LEGS NOTED TO BE HANGING OFF SIDE OF BED PT LAYING ON LEFT SIDE. PT REPOSITIONED BACK IN BED AND SCD'S PLACED BACK ON. PT STATES, "THE WARDEN SAYS I CAN GO HOME TODAY. I DON'T NEED THOSE BACK ON." THIS A&P MECHANIC ATTEMPTED TO REORIENT PT AND EXPLAIN THAT PT IS CURRENTLY IN A HOSPITAL AND THE SCD'S ARE FOR BLOOD CLOT PREVENTION. PT SAID, "YOU WILL HAVE TO TALK TO THE WARDEN ABOUT THAT. I'M GETTING OUT FOR [facility] BEHAVIOR." PT COOPERATIVE WITH SCD'S. IV RESITED TO RIGHT FOREARM WITH 22G CATHETER X 1 STICK. PT TOLERATED WELL, IV FLUSHES WITH NO PROBLEMS, NOTED TO BE PATENT. CALL LIGHT AND H2O IN PT REACH. BED IN LOW POSITION. SIDE RAILS UP X2.
[2016-12-04] VITALS: BP 128/66
--- NOTE | 2016-12-04 01:29 | NUR ---
PT TEMPERATURE ON CRITICORE NOTED TO BE 100F. BEAR HUGGER PUT ON STANDBY, BLANKET AND BEARHUGGER REMOVED. PT CURRENTLY COVERED WITH FLATSHEET. PT DENIES NEEDS AT THIS TIME.
--- NOTE | 2016-12-04 03:44 | NUR ---
LYING IN BED WITH EYES CLOSED. RESP EVEN AND UNLABORED. CALL LIGHT IN REACH.
[2016-12-04 04:00] VITALS: BP 160/67
[2016-12-04 06:56] LABS: BASOPHILS 0.1 % (0-2); EOSINOPHILS 2.6 % (0-7); HEMATOCRIT 25.5 % (42.0-54.0); HEMOGLOBIN 8.5 g/dL (13.5-17.5); IMMATURE GRANULOCYTES 0.1 % (0-5); MCH 26.2 pg (26.0-34.0); MCHC 33.3 g/dL (31.0-37.0); MCV 78.5 fL (80.0-100.0); NEUTROPHILS 57.2 % (40-80); PLATELET COUNT 245 10x3/uL (130-400); RBC 3.25 10x6/uL (4.20-6.10); RDW 18.4 % (11.5-14.5); WBC 6.9 10x3/uL (4.8-10.8)
[2016-12-04 07:21] LABS: ALBUMIN 2.7 g/dL (3.4-5.0); ANION GAP 11.1 mmol/L (8-16); BILIRUBIN - TOTAL 0.36 mg/dL (0.2-1.3); CALCIUM 9.2 mg/dL (8.5-10.1); CARBON DIOXIDE 25.4 mmol/L (21.0-32.0); CREATININE - SERUM 1.9 mg/dL (0.6-1.3); MAGNESIUM - SERUM 1.8 mg/dL (1.8-2.4); PHOSPHOROUS 3.8 mg/dL (2.5-4.9); POTASSIUM - SERUM 3.5 mmol/L (3.5-5.1); PROTEIN - SERUM 7.2 g/dL (6.4-8.2)
--- NOTE | 2016-12-04 07:50 | NUR ---
LAST NIGHT TEMP WAS 99, LUCY FIORE TAKEN OFF, TEMP STAYING AROUND 99 STILL, WILL CONTINUE TO MONITOR, PULLED IV OUT
[2016-12-04 09:00] VITALS: BP 168/64
--- NOTE | 2016-12-04 10:00 | NUR ---
TEMP IS AT 98.8 WITHOUT BEAR HUGGER
--- NOTE | 2016-12-04 15:00 | NUR ---
SPOKE TO HAMILTON KUMAR ABOUT PULLING IV OUT AGAIN, SHE SAID WE COULD LEAV IT OUT AND SWITCH ATIVAN FROM IV TO PO
[2016-12-04 16:17] VITALS: BP 150/70
--- NOTE | 2016-12-04 16:21 | NUR ---
PT WITHOUT DISTRESS.DENIES NEEDS.CALL LIGHT IN REACH
--- NOTE | 2016-12-04 16:57 | NUR ---
TURNED PT O2 OFF. PT O2 SAT WAS 96% AFTER 15MIN OF BEING OFF OXYGEN. ASKED PT IF HE WOULD WALK WITH ME TO SEE IF HIS OXYGEN LEVEL WOULD DROP. PT REFUSED TO WALK WITH ME. SAID HE DIDNT FEEL LIKE IT AND HE DIDNT NEED TO.
--- NOTE | 2016-12-04 17:59 | NUR ---
PLEASANT, DENIES NEEDS, CALL LIGHT IN REACH
[2016-12-04 20:00] VITALS: BP 137/42
--- NOTE | 2016-12-04 22:20 | NUR ---
Patient resting in bed, call light and water in reach, bed in lowest position, CPOC.
[2016-12-05] VITALS: BP 157/65
[2016-12-05 04:00] VITALS: BP 161/79
[2016-12-05 06:19] LABS: BASOPHILS 0.1 % (0-2); EOSINOPHILS 2.1 % (0-7); HEMATOCRIT 26.3 % (42.0-54.0); HEMOGLOBIN 8.8 g/dL (13.5-17.5); IMMATURE GRANULOCYTES 0.1 % (0-5); LYMPHOCYTES 26.2 % (15-50); MCH 26.1 pg (26.0-34.0); MCHC 33.5 g/dL (31.0-37.0); MEAN PLATELET VOLUME 11.2 fL (7.4-10.4); MONOCYTES 9.9 % (2-11); NEUTROPHILS 61.6 % (40-80); PLATELET COUNT 266 10x3/uL (130-400); RBC 3.37 10x6/uL (4.20-6.10); WBC 7.2 10x3/uL (4.8-10.8)
[2016-12-05 06:51] LABS: ALBUMIN 2.7 g/dL (3.4-5.0); ANION GAP 14.8 mmol/L (8-16); BILIRUBIN - TOTAL 0.5 mg/dL (0.2-1.3); CALCIUM 9.1 mg/dL (8.5-10.1); CARBON DIOXIDE 23.7 mmol/L (21.0-32.0); CREATININE - SERUM 1.7 mg/dL (0.6-1.3); POTASSIUM - SERUM 3.5 mmol/L (3.5-5.1); PROTEIN - SERUM 7.1 g/dL (6.4-8.2)
[2016-12-05 09:17] VITALS: BP 158/63
--- NOTE | 2016-12-05 10:01 | NUR ---
SCHEDULD MEDICATIONS ADMINISTERED AT THIS TIME WITHOUT DIFFICULTY. ASSESSMENT PERFORMED PER FLOWSHEET. MACEDO PATENT AND DRAINING TO GRAVITY. REMAINS IN DROPLET ISOLATION. BED ALARM ON AND IN WORKING ORDER. DENIES NEEDS AT THIS TIME. CALL LIGHT IN REACH AND DOOR OPEN.
--- NOTE | 2016-12-05 11:30 | NUR ---
ASSISTED PT UP TO CHAIR AT THIS TIME. LINENS CHANGE AND BATH PERFORMED. MACEDO REMAINS PATENT AND DRAINING TO GRAVITY. ASSISTED PT BACK TO BED. SRX2 WITH BED IN LOWEST POSITION AND WHEELS LOCKED. CALL LIGHT IN REACH, WILL CONTINUE WITH PLAN OF CARE.
[2016-12-05 11:53] VITALS: BP 117/55
--- NOTE | 2016-12-05 13:10 | NUR ---
ASSISTED PT TO COMMODE AT THIS TIME WHERE HE HAD A BOWEL MOVEMENT WITHOUT DIFFICULTY. STOOL WAS BROWN AND FORMED. ASSISTED PT BACK TO BED WITH CALL LIGHT IN REACH AND BED IN LOWEST POSITION. BED ALARM ON, WILL CONTINUE WITH PLAN OF CARE.
[2016-12-05 15:33] VITALS: BP 159/55
--- NOTE | 2016-12-05 16:10 | NUR ---
ASSISTED PT TO COMMODE AT THIS TIME. PT HAD A LARGE AMOUNT OF FORMED, BROWN STOOL WITHOUT DIFFICULTY. DENIES NEEDS AT THIS TIME. ASSISTED BACK TO BED WITH CALL LIGHT IN REACH AND BED ALARM ON. WILL CONTINUE WITH PLAN OF CARE.
--- NOTE | 2016-12-05 18:00 | NUR ---
MACEDO CATHETER D/C WITH CATH TIP INTACT. PT TOLERATED WITHOUT COMPLAINTS.
[2016-12-05 20:00] VITALS: BP 168/54
--- NOTE | 2016-12-05 20:00 | NUR ---
ASSESSMENT PER FLOWSHEET. PATIENT LYING IN BED SR UP X2 CALL LIGHT WITHIN EACH BED ALARM BED ACTIVATED. PT PLEASANTLY CONFUSED TO PLACE TIME AND SITUATION.
--- NOTE | 2016-12-05 20:30 | NUR ---
BED ALARM SOUNDING PT OUT OF BED WANDERING IN THE MENENDEZ. BALANCE SLIGHTLY UNSTEADY. ASSISTED BACK TO BED SR UP X3 CALL LIGHT WITHIN REACH BED ALARM BD RE-ACTIVATED.
--- NOTE | 2016-12-05 21:55 | NUR ---
MEDS GIVEN PER MAR.
[2016-12-06] VITALS: BP 156/58
--- NOTE | 2016-12-06 | NUR ---
PT AWAKE. BED ALARM SOUNDING PT OUT OF BED IN HALLWAYS STATES HE IS LOOKING FOR HIS ROOM ATTEMPT TO RE-ORIENT PATIENT. ASSISTED PT BACK TO HIS ROOM AND INTO THE BATHROOM. PT VOIDED THENASSISTED TO BED. REACTIVATED BED ALARM.
--- NOTE | 2016-12-06 01:45 | NUR ---
BED ALARM SOUNDING PT WANTING TO GO TO HIS ROOM. ASSISTED BACK TO HIS ROOM AND INTO BED. SR UP X3 CALL LIGHT WITHIN REACH REACTIVATED BED ALARM.
[2016-12-06 04:00] VITALS: BP 151/56
[2016-12-06 05:41] LABS: BASOPHILS 0.2 % (0-2); EOSINOPHILS 2.9 % (0-7); HEMATOCRIT 26.7 % (42.0-54.0); HEMOGLOBIN 8.7 g/dL (13.5-17.5); IMMATURE GRANULOCYTES 0.2 % (0-5); LYMPHOCYTES 29.7 % (15-50); MCH 25.7 pg (26.0-34.0); MCHC 32.6 g/dL (31.0-37.0); MCV 78.8 fL (80.0-100.0); MEAN PLATELET VOLUME 12.1 fL (7.4-10.4); MONOCYTES 9.7 % (2-11); NEUTROPHILS 57.3 % (40-80); PLATELET COUNT 294 10x3/uL (130-400); RBC 3.39 10x6/uL (4.20-6.10); RDW 17.8 % (11.5-14.5)
[2016-12-06 06:10] LABS: ALBUMIN 2.8 g/dL (3.4-5.0); ANION GAP 12.7 mmol/L (8-16); BILIRUBIN - TOTAL 0.32 mg/dL (0.2-1.3); CALCIUM 8.9 mg/dL (8.5-10.1); CARBON DIOXIDE 26.5 mmol/L (21.0-32.0); CREATININE - SERUM 1.6 mg/dL (0.6-1.3); POTASSIUM - SERUM 3.2 mmol/L (3.5-5.1); PROTEIN - SERUM 7.4 g/dL (6.4-8.2)
[2016-12-06 08:22] VITALS: BP 149/50
--- NOTE | 2016-12-06 08:36 | NUR ---
SCHEDULED MEDICATIONS ADMINISTERED WITHOUT DIFFICULTY AT THIS TIME. ASSESSMENT PERFORMED PER FLOWSHEET. PT REMAINS IN DROPLET ISOLATION. PT WANTS TO D/C HOME TODAY. INSTRUCTED HIM THAT WE WOULD WORK ON HIM GETTING HOME AT SOME POINT TODAY. CALL LIGHT IN REACH, WILL CONTINUE WITH PLAN OF CARE.
--- NOTE | 2016-12-06 11:25 | NUR ---
SPOKE WITH PT'S MOTHER, CYNDI ATWOOD, AT THIS TIME AND EXPLAINED THAT HER SON WOULD BE DISCHARGED HOME AT SOME POINT TODAY.
[2016-12-06] MEDS ORDERED: NICODERM C1 PATCH .1 TRANSDERM (11:34)
[2016-12-06] MEDS ORDERED: SYNTHROID25 MCG PO (11:34)
[2016-12-06] MEDS ORDERED: FLORAJEN3 CAPS460 MG PO (11:35)
[2016-12-06] MEDS ORDERED: PULMICORT0.5 MG/21 UPD (11:35)
[2016-12-06] MEDS ORDERED: MUCINEX DM ER1 EAC1 PO (11:35)
[2016-12-06] MEDS ORDERED: NITRO-DUR0.1 MG TRANSDERM (11:36)
--- NOTE | 2016-12-06 14:15 | NUR ---
DISCHARGE INSTRUCTIONS REVIEWED WITH PATIENT'S MOTHER BY ANITA HERNANDEZ RN. PT TRANSFERRED DOWNSTAIRS AND D/C HOME WITH MOTHER.
--- NOTE | 2016-12-06 14:30 | NUR ---
CM REASSESSMENT NOTE: PATIENT IS DISCHARGING HOME TODAY - MOTHER DID NOT WANT PLACEMENT NOR ANYTHING ELSE FOR DISCHARGE. NEBULIZER CALLED INTO [facility] AND MOTHER PICKING THAT UP ON THE WAY HOME.
== END 2016-12-06 14:15 | disposition home or self-care (01) | DRG 871 ==
LOC: D.ER 12:15 → D.M2 18:25 → D.ICU 18:25 → D.MS 18:25 → D.ICU 11-17 11:45 → D.M2 11-21 22:00 → D.ICU 11-28 10:32 → D.MS 12-01 20:24
PROVIDERS: Emergency Medicine; Family Medicine; Internal Medicine Pulmonary Disease; Psychiatry & Neurology Neurology; ADMIT Emergency Medicine
DX: A41.02 Sepsis due to Methicillin resistant Staphylococcus aureus (principal); G93.41 Metabolic encephalopathy; J15.212 Pneumonia due to Methicillin resistant Staphylococcus aureus; J15.6 Pneumonia due to other Gram-negative bacteria; J69.0 Pneumonitis due to inhalation of food and vomit; F17.203 Nicotine dependence unspecified, with withdrawal; E87.0 Hyperosmolality and hypernatremia; J44.0 Chronic obstructive pulmonary disease with (acute) lower respiratory infection; N17.9 Acute kidney failure, unspecified; E87.5 Hyperkalemia; F03.90 Unspecified dementia, unspecified severity, without behavioral disturbance, psychotic disturbance, mood disturbance, and anxiety; I11.0 Hypertensive heart disease with heart failure; I50.9 Heart failure, unspecified; E11.65 Type 2 diabetes mellitus with hyperglycemia; D64.9 Anemia, unspecified; I25.10 Atherosclerotic heart disease of native coronary artery without angina pectoris; R65.20 Severe sepsis without septic shock; E78.5 Hyperlipidemia, unspecified; N40.0 Benign prostatic hyperplasia without lower urinary tract symptoms; T68.XXXA Hypothermia, initial encounter; F01.50 Vascular dementia, unspecified severity, without behavioral disturbance, psychotic disturbance, mood disturbance, and anxiety; I69.319 Unspecified symptoms and signs involving cognitive functions following cerebral infarction

== ENCOUNTER 2016-12-12 06:50 | Observation (INO) | payer MEDICAID ==
[~2016-12-12] VITALS: Ht 180.3 cm; Wt 81.6 kg
[~2016-12-12 06:50] MED LIST changes: +FLORAJEN3 CAPS460 MG PO; +MUCINEX DM ER1 EAC1 PO; +NICODERM C1 PATCH .1 TRANSDERM; +NITRO-DUR0.1 MG TRANSDERM; +PULMICORT0.5 MG/21 UPD; +SYNTHROID25 MCG PO
[2016-12-12 07:19] LABS: BASOPHILS 0.1 % (0-2); EOSINOPHILS 1.1 % (0-7); HEMOGLOBIN 8.3 g/dL (13.5-17.5); IMMATURE GRANULOCYTES 0.3 % (0-5); LYMPHOCYTES 20.9 % (15-50); MCH 25.3 pg (26.0-34.0); MCHC 31.9 g/dL (31.0-37.0); MCV 79.3 fL (80.0-100.0); MEAN PLATELET VOLUME 11.6 fL (7.4-10.4); NEUTROPHILS 69.6 % (40-80); PLATELET COUNT 343 10x3/uL (130-400); RBC 3.28 10x6/uL (4.20-6.10); WBC 9.9 10x3/uL (4.8-10.8)
[2016-12-12 07:27] LABS: ALBUMIN 3.2 g/dL (3.4-5.0); ANION GAP 14.4 mmol/L (8-16); BILIRUBIN - TOTAL 0.2 mg/dL (0.2-1.3); CALCIUM 9.2 mg/dL (8.5-10.1); CARBON DIOXIDE 23.5 mmol/L (21.0-32.0); CREATININE - SERUM 1.3 mg/dL (0.6-1.3); POTASSIUM - SERUM 3.9 mmol/L (3.5-5.1); PROTEIN - SERUM 7.8 g/dL (6.4-8.2)
[2016-12-12 08:31] LABS: UDS - AMPHET NEGATIVE QUAL (NEGATIVE); UDS - BARB NEGATIVE QUAL (NEGATIVE); UDS - BENZO POSITIVE QUAL (NEGATIVE); UDS - COCAINE NEGATIVE QUAL (NEGATIVE); UDS - METH NEGATIVE QUAL (NEGATIVE); UDS - OPIATE NEGATIVE QUAL (NEGATIVE); UDS - PCP NEGATIVE QUAL (NEGATIVE); UDS - THC NEGATIVE QUAL (NEGATIVE)
[2016-12-12 08:37] LABS: AMORPHOUS SEDIMENT <1+ /lpf (NONE SEEN); APPEARANCE SLT CLOUDY (CLEAR); BACTERIA FEW /hpf (NONE SEEN); BILIRUBIN NEGATIVE (NEGATIVE); COLOR YELLOW (YELLOW); EPITHELIAL CELLS RARE /hpf (0-5); GLUCOSE NEGATIVE (NEGATIVE); KETONE NEGATIVE (NEGATIVE); LEUKOCYTE ESTERASE TRACE (NEGATIVE); MUCUS <1+ /lpf (NONE SEEN); NITRITE NEGATIVE (NEGATIVE); PROTEIN 2+ mg/dL (NEGATIVE); SPECIFIC GRAVITY 1.015 (1.005-1.020); UROBILINOGEN NORMAL (NORMAL); WHITE CELLS - URINE OCC /hpf (0-5)
[2016-12-12 12:03] VITALS: BP 132/56; BMI 26.6
[2016-12-12 14:04] VITALS: BP 106/58
[2016-12-12 16:45] VITALS: BP 169/77
[2016-12-12 20:22] VITALS: BP 185/73
--- NOTE | 2016-12-12 22:00 | NUR ---
PATIENT CAME BACK WITH CT WITH NO VISIBLE SIGNS OF DISTRESS. BED IN LOWEST POSITION, CALL LIGHT WITHIN REACH, AND DEREK ALARM ON.
[2016-12-13] VITALS: BP 179/84
--- NOTE | 2016-12-13 01:21 | NUR ---
REC'D PATIENT LYING IN BED. IS COMPLAINING OF PAIN TO HIS HIP AND HEAD, STATES IT IS 8/10. DID NOT HAVE ANYTHING ORDERED FOR PAIN. CALLED LAURA WELLS AND HE GOT HIM SOME TYLENOL ORDERD. ALERT AND ORIENTED X4. I HELPED HIM USE THIS URNIAL. NO DISTRESS NOTED. LUNGS SOUND WET. HAD HIM COUGH FOR ME TO CLEAR UP SOME AND IT STILL SOUNDS WET. DENIED FURTHER NEEDS. INSTRUCTED TO CALL IF NEEDED ANYTHING. BED LOW, LOCKED CALL LIGHT IN REACH, ALARM ON.
[2016-12-13 04:00] VITALS: BP 160/83
[2016-12-13 06:41] LABS: BASOPHILS 0.1 % (0-2); EOSINOPHILS 0.5 % (0-7); HEMATOCRIT 25.4 % (42.0-54.0); HEMOGLOBIN 8.5 g/dL (13.5-17.5); IMMATURE GRANULOCYTES 0.3 % (0-5); LYMPHOCYTES 12.5 % (15-50); MCH 26.1 pg (26.0-34.0); MCHC 33.5 g/dL (31.0-37.0); MCV 77.9 fL (80.0-100.0); MEAN PLATELET VOLUME 11.2 fL (7.4-10.4); MONOCYTES 4.5 % (2-11); NEUTROPHILS 82.1 % (40-80); PLATELET COUNT 374 10x3/uL (130-400); RBC 3.26 10x6/uL (4.20-6.10); RDW 18.4 % (11.5-14.5)
[2016-12-13 07:00] LABS: ALBUMIN 2.8 g/dL (3.4-5.0); ANION GAP 11.4 mmol/L (8-16); BILIRUBIN - TOTAL 0.21 mg/dL (0.2-1.3); CALCIUM 8.9 mg/dL (8.5-10.1); CARBON DIOXIDE 27.4 mmol/L (21.0-32.0); CREATININE - SERUM 1.3 mg/dL (0.6-1.3); POTASSIUM - SERUM 3.8 mmol/L (3.5-5.1); PROTEIN - SERUM 7.2 g/dL (6.4-8.2)
[2016-12-13 07:25] LABS: WBC 14.8 10x3/uL (4.8-10.8)
[2016-12-13 08:44] VITALS: BP 136/81
--- NOTE | 2016-12-13 09:02 | NUR ---
PT SEEN. DISORIENTED X 3. HEAD WRAPPED WITH GAUZE CLEAN DRY AND INTACT. BED ALRM FOR SAFETY. DRY AT THE MOMENT-HAS BEEN INCONT. CALL LIGHT IN REACH
[2016-12-13 12:00] VITALS: BP 132/68
[2016-12-13 15:03] VITALS: Ht 180.3 cm; Wt 81.6 kg
[2016-12-13 16:56] VITALS: BP 130/65
[2016-12-13 18:00] VITALS: BP 150/54
--- NOTE | 2016-12-13 19:45 | NUR ---
REC'D PATIENT LYING IN BED RESTING. ALERT AND ORIENTED X3. DENIES PAIN AT THIS TIME. NO DISTRESS NOTED. WILL CONT TO MONITOR. DENIED FURTHER NEEDS. INSTRUCTED TO CALLL IF NEEDED ANYTHING. BED LOW, LOCKED, CALL LIGHT IN REACH, ALARM ON.
[2016-12-14 04:00] VITALS: BP 162/67
[2016-12-14 05:57] LABS: BASOPHILS 0.1 % (0-2); EOSINOPHILS 0.9 % (0-7); HEMOGLOBIN 8.9 g/dL (13.5-17.5); IMMATURE GRANULOCYTES 0.1 % (0-5); MCH 25.7 pg (26.0-34.0); MEAN PLATELET VOLUME 10.7 fL (7.4-10.4); MONOCYTES 7.1 % (2-11); NEUTROPHILS 59.8 % (40-80); PLATELET COUNT 361 10x3/uL (130-400); RBC 3.46 10x6/uL (4.20-6.10); RDW 18.8 % (11.5-14.5)
[2016-12-14 06:00] LABS: WBC 8.1 10x3/uL (4.8-10.8)
[2016-12-14 06:30] LABS: ALBUMIN 2.8 g/dL (3.4-5.0); ANION GAP 14.8 mmol/L (8-16); BILIRUBIN - TOTAL 0.4 mg/dL (0.2-1.3); CALCIUM 8.9 mg/dL (8.5-10.1); CARBON DIOXIDE 25.9 mmol/L (21.0-32.0); CREATININE - SERUM 1.5 mg/dL (0.6-1.3); POTASSIUM - SERUM 3.7 mmol/L (3.5-5.1); PROTEIN - SERUM 7.3 g/dL (6.4-8.2)
--- NOTE | 2016-12-14 08:24 | NUR ---
AWAKE AND ALERT. ORIENTED TO SELF REORIENTED TO TIME AND PLACE PER STAFF. LUNGS HAVE FAINT CRACKLES IN UPPER LOBES, OCCASSIONAL DRY COUGH NOTED. SKIN IS INTACT WITHOUT REDNESS EXCEPT ABRASION OVER RIGHT EYE WHICH IS SCABBED OVER AND BOTH EYES ARE SWOLLEN ALMOST SHUT. SL TO LEFT WRIST AREA IS PATENT WITHOUT REDNESS AT INSERTION SITE. SCD'S IN PLACE. BREAKFAST SERVED IN ROOM.
[2016-12-14 08:52] VITALS: BP 135/74
--- NOTE | 2016-12-14 10:00 | NUR ---
UP TO BR WITH MIN ASSIST OF ONE. BALANCE AND GAIT ARE UNSTEADY.
--- NOTE | 2016-12-14 12:15 | NUR ---
LUNCH SERVED IN ROOM. FEEDS SELF WITH SETUP. ATE ALL OF MEAL. DENIES NEEDS.
[2016-12-14 13:45] VITALS: BP 162/78
--- NOTE | 2016-12-14 14:00 | CN ---
PATIENT NAME:FIDE ATWOOD MEDICAL RECORD: [id number] : 56 LOCATION:D.MS [id number] ADMIT DATE: 12/12/16 ACCOUNT: [id number] CONSULTING PHYSICIAN: DARLIN MEJÍA MD REFERRING PHYSICIAN: MITCHELL VAZQUEZ MD DATE OF CONSULTATION: 12/13/2016 Psychiatric Consultation IDENTIFYING DATA: The patient is 56 years old and known to me from previous clinical contact. CHIEF COMPLAINT: Confusion. HISTORY OF PRESENT ILLNESS: The patient lives in a local [facility]. Apparently, he was looking in other window, has been lethargic and now has been admitted for mental status change. He is in bed. He talks to me. He looks a little drowsy. Interestingly, he supposedly in a [facility], but he says he is not. I am not sure which is correct, the records say has been at the [facility] and that is where he was transferred to us from. His urine is positive for benzodiazepine, but that is not one of his home medicines. He has no idea what I am talking about when I asked about it. He does admit that he has a history of drinking, but says he has not done so recently. He did have an EEG that showed generalized slowing when he was previously admitted here and this is his third admission for acute mental status changes and just a short period of time. MENTAL STATUS EXAMINATION: The patient is awake, but sleepy. He is oriented to person and place, but not to time or situation. His mood is flat. His affect is constricted. Thought processes are circumstantial. Memory, concentration and abstraction abilities are severely impaired and he denies that he would seek to harm himself or others as well as psychotic symptoms. ASSESSMENT: Dementia, probably secondary to alcohol. PLAN: The patient is not acutely dangerous or agitated. Regarding his mental status change, I do not see it. He may have improved or change since the consult was requested, but he looks very much if not identical to how he looked the last time I saw him. I do not understand or know what process is going on and it may be something more complicated than just a straight forward alcohol related dementia, but that is what I think his issue is right now. Clearly, he is not going to improve and he is going to require [facility] care. I would recommend he be returned to the [facility] once medically stabilized and cleared by neurology. I think it is appropriate to hold his Zyprexa for the time being and ask for followup outpatient mental health treatment at [facility]. TRANSINT:[id number] Voice Confirmation ID: [id number] DOCUMENT ID: [id number] CONSULT REPORT [id number] FIDE ATWOOD PETER MD at 1400 CC: [id number] DICTATION DATE: 12/13/16 1521 OFFSHORE WIND OPERATIONS MANAGER: 12/13/16 1647 ADM IN [facility] [address] [place] [phone]
--- NOTE | 2016-12-14 15:03 | NUR ---
RESTING QUIETLY WITH EYES CLOSED.
--- NOTE | 2016-12-14 16:32 | NUR ---
CM REASSESSMENT NOTE: CM HAS TRIED CALLING PATIENTS MOTHER (CYNDI) ABOUT PATIENT BEING PLACED BUT COULD NOT REACH HER. CM LEFT MSG. FOR HER TO CALL CM BACK SOON SHE COULD. CM WILL CONTINUE TO FOLLOW PATIENT WITH D/C NEEDS AND PLANS.
--- NOTE | 2016-12-14 16:40 | NUR ---
CM REASSESSMENT NOTE: CM SENT REFERRAL TO [facility], AND [facility] IN [place]. MOTHER (MS. HANNA) AGREED TO PLACEMENT THIS TIME. CM WILL CONTINUE TO FOLLOW PATIENT WITH D/C NEEDS AND PLANS.
[2016-12-14 16:55] VITALS: BP 174/74
--- NOTE | 2016-12-14 18:44 | NUR ---
ATE ALL OF SUPPER. NO C/O AT THIS TIME. NO CHANGES NOTED. DENIES NEEDS.
--- NOTE | 2016-12-14 20:15 | NUR ---
BARNEY MANDEL AT BEDSIDE GIVING THE PATIENT A BATH. PATIENT DENIES NEEDS AT THIS TIME AND HAS NO VISIBLE SIGNS OF DISTRESS. ENCOURAGED THE PATIENT TO CALL IF HE HAS FURTHER NEEDS.
[2016-12-15] VITALS: BP 168/84
--- NOTE | 2016-12-15 03:30 | NUR ---
RESITED PATIENT'S IV IN THE LEFT ARM WITH A 20G NEEDLE ON THE FIRST ATTEMPT AFTER PATIENT PULLED HIS IV OUT. ALSO COMPLETED A COMPLETE BED CHANGE WITH BARNEY MANDEL. PATIENT'S BED IN THE LOWEST POSITION, CALL LIGHT WITHIN REACH, AND DEREK BED ALARM ON. ENCOURAGED THE PATIENT TO CALL IF HE HAS NEEDS.
[2016-12-15 04:00] VITALS: BP 191/71
[2016-12-15 06:08] LABS: BASOPHILS 0.2 % (0-2); EOSINOPHILS 1.3 % (0-7); HEMATOCRIT 26.4 % (42.0-54.0); HEMOGLOBIN 8.7 g/dL (13.5-17.5); IMMATURE GRANULOCYTES 0.2 % (0-5); LYMPHOCYTES 30.3 % (15-50); MCH 25.7 pg (26.0-34.0); MCV 78.1 fL (80.0-100.0); MEAN PLATELET VOLUME 11.9 fL (7.4-10.4); MONOCYTES 9.6 % (2-11); NEUTROPHILS 58.4 % (40-80); PLATELET COUNT 410 10x3/uL (130-400); RBC 3.38 10x6/uL (4.20-6.10); RDW 18.8 % (11.5-14.5); WBC 9.4 10x3/uL (4.8-10.8)
[2016-12-15 06:36] LABS: ALBUMIN 2.9 g/dL (3.4-5.0); ANION GAP 13.6 mmol/L (8-16); BILIRUBIN - TOTAL 0.4 mg/dL (0.2-1.3); CALCIUM 9.1 mg/dL (8.5-10.1); CARBON DIOXIDE 27.9 mmol/L (21.0-32.0); CREATININE - SERUM 1.3 mg/dL (0.6-1.3); POTASSIUM - SERUM 3.5 mmol/L (3.5-5.1); PROTEIN - SERUM 7.5 g/dL (6.4-8.2)
--- NOTE | 2016-12-15 07:57 | NUR ---
RESTING QUIETLY WITH EYES CLOSED. RESPONDS TO VERBAL STIMULATION. LUNGS HAVE FAINT CRACKLES IN BILATERAL LOWER LOBES. OCCASSIONAL DRY COUGH NOTED. SKIN IS INTACT WITHOUT REDNESS. SL TO LEFT FOREARM IS PATENT WITHOUT REDNESS AT INSERTION SITE. SCD'S OFF AT THIS TIME. DENIES NEEDS.
[2016-12-15 09:01] VITALS: BP 170/72
--- NOTE | 2016-12-15 10:30 | NUR ---
ATE ALL OF BREAKFAST. DENIES NEEDS.
[2016-12-15 12:00] VITALS: BP 123/69
--- NOTE | 2016-12-15 17:37 | NUR ---
CM REASSESSMENT NOTE: REFERRALS ARE AT THE [facility] AND CM CALLED [facility] AND THEY DID NOT HAVE A BED. WAITING TO HEAR FROM [facility]. PATIENT WAS ADMITTED FROM HOME. PATIENT LIVES NEXT DOOR TO HIS MOTHER AND SHE STATED IT IS TIME FOR PLACEMENT. CM WILL CONTINUE TO FOLLOW PATIENT WITH D/C NEEDS AND PLANS.
[2016-12-15 17:56] VITALS: BP 176/72
--- NOTE | 2016-12-15 18:51 | NUR ---
ATE ALL OF SUPPER. WANTS ME TO CUT OFF HIS WRIST BANDS HE'S GOING HOME. REORIENTED TO TIME AND PLACE. WILL MONITOR.
[2016-12-15 19:00] VITALS: BP 195/79
--- NOTE | 2016-12-15 20:53 | NUR ---
RESTING QUIETLY. NO DISTRESS NOTED. SL INTACT WIHTOUT REDNESS OR EDEMA NOTED. CL IN REACH.
--- NOTE | 2016-12-16 02:55 | NUR ---
EYES CLOSED. RESP EVEN AND UNALBORED. CL IN REACH.
--- NOTE | 2016-12-16 03:14 | NUR ---
RN NOTE: PT LYING ON LEFT SIDE WITH EYES CLOSED AND UNLABORED BREATHING. BED ALARM IN USE FOR SAFETY. CONTACT ISOLATION IN PLACE FOR MRSA. IV IN LEFT FA SALINE LOCKED. WILL CONTINUE TO MONITOR FOR NEEDS. SIDE RAILS UP X2 FOR SAFETY.
[2016-12-16 04:00] VITALS: BP 182/86
[2016-12-16 06:33] LABS: BASOPHILS 0.1 % (0-2); EOSINOPHILS 1.9 % (0-7); HEMATOCRIT 27.2 % (42.0-54.0); HEMOGLOBIN 8.9 g/dL (13.5-17.5); IMMATURE GRANULOCYTES 0.3 % (0-5); MCH 25.6 pg (26.0-34.0); MCHC 32.7 g/dL (31.0-37.0); MCV 78.2 fL (80.0-100.0); MEAN PLATELET VOLUME 10.7 fL (7.4-10.4); MONOCYTES 6.9 % (2-11); NEUTROPHILS 52.8 % (40-80); PLATELET COUNT 393 10x3/uL (130-400); RBC 3.48 10x6/uL (4.20-6.10); RDW 17.9 % (11.5-14.5); WBC 7.2 10x3/uL (4.8-10.8)
[2016-12-16 06:58] LABS: ALBUMIN 2.9 g/dL (3.4-5.0); ANION GAP 13.2 mmol/L (8-16); BILIRUBIN - TOTAL 0.27 mg/dL (0.2-1.3); CALCIUM 9.1 mg/dL (8.5-10.1); CARBON DIOXIDE 27.8 mmol/L (21.0-32.0); CREATININE - SERUM 1.5 mg/dL (0.6-1.3)
--- NOTE | 2016-12-16 07:55 | NUR ---
PT CONFUSED IN BED RESP EVEN AND NONLABORED PT DENIES NEEDS AT THIS TIME. SRX2 BED AT LOWEST SETTING CALL LIGHT WITHIN REACH WILL CONTINUE TO MONITOR
[2016-12-16 08:44] VITALS: BP 152/66
--- NOTE | 2016-12-16 11:19 | NUR ---
CM REASSESSMENT NOTE: PATIENT IS DISCHARGING HOME TODAY WITH MOTHER. MAIKOL (LIASON) WITH [facility] HAS REC. DENIAL FROM [place], AND IS CHECKING ON [facility] AND [employer] TODAY. LIASON STATED SHE IS STILL WORKING ON [employer] BUT MOTHER HAD REFUSED THAT ONE IN THE PAST BUT HAS SINCE STATED TO TRY THERE. MOTHER WILL FOLLOW UP WITH [facility] AND THE [facility] AFTER DISCHARGE.
[2016-12-16 12:57] VITALS: BP 172/74
--- NOTE | 2016-12-16 15:45 | NUR ---
IV TO LEFT FOREARM DISCONTINUED AT THIS TIME. PT TAKEN VIA WHEELCHAIR VIA PRIVATE VEHICLE TO HOME AT THIS TIME WITH DISCHARGE INSTRUCTIONS IN HAND
== END 2016-12-16 16:00 | disposition home or self-care (01) ==
LOC: D.ER 06:50 → OBSVTIME 10:30 → D.MS 10:30
PROVIDERS: Emergency Medicine; ADMIT Family Medicine Adult Medicine
DX: R41.82 Altered mental status, unspecified (principal); W19.XXXA Unspecified fall, initial encounter; Y92.129 Unspecified place in nursing home as the place of occurrence of the external cause; F17.203 Nicotine dependence unspecified, with withdrawal; I50.9 Heart failure, unspecified; I10 Essential (primary) hypertension; I25.10 Atherosclerotic heart disease of native coronary artery without angina pectoris; F09 Unspecified mental disorder due to known physiological condition; Z86.73 Personal history of transient ischemic attack (TIA), and cerebral infarction without residual deficits; R46.89 Other symptoms and signs involving appearance and behavior

== ENCOUNTER 2016-12-27 09:23 | Inpatient (IN) | payer MEDICAID ==
[~2016-12-27] VITALS: Ht 180.3 cm; Wt 74.5 kg
[2016-12-27 09:58] LABS: BASOPHILS 0.1 % (0-2); EOSINOPHILS 0.3 % (0-7); HEMATOCRIT 29.8 % (42.0-54.0); HEMOGLOBIN 9.6 g/dL (13.5-17.5); IMMATURE GRANULOCYTES 0.1 % (0-5); LYMPHOCYTES 9.1 % (15-50); MCH 25.6 pg (26.0-34.0); MCHC 32.2 g/dL (31.0-37.0); MCV 79.5 fL (80.0-100.0); MONOCYTES 3.2 % (2-11); NEUTROPHILS 87.2 % (40-80); PLATELET COUNT 186 10x3/uL (130-400); RBC 3.75 10x6/uL (4.20-6.10); RDW 18.2 % (11.5-14.5)
[2016-12-27 10:07] LABS: ALBUMIN 3.4 g/dL (3.4-5.0); ANION GAP 17.1 mmol/L (8-16); BILIRUBIN - TOTAL 0.41 mg/dL (0.2-1.3); CALCIUM 9.5 mg/dL (8.5-10.1); CARBON DIOXIDE 21.1 mmol/L (21.0-32.0); CREATININE - SERUM 1.2 mg/dL (0.6-1.3); POTASSIUM - SERUM 4.2 mmol/L (3.5-5.1); PROTEIN - SERUM 8.2 g/dL (6.4-8.2)
[2016-12-27 13:40] VITALS: BP 128/68; BMI 24.5
--- NOTE | 2016-12-27 15:14 | NUR ---
ARRIVED TO FLOOR FROM ER. SPEECH IS GARBLED. BUT PT DOES KNOW WHERE HE IS. HE DOES NOT KNOW WHAT HAPPENED TO HIM. UNABLE TO GET MED LIST AND A COMPLETE HISTORY.
[2016-12-27 16:00] VITALS: BP 128/68
[2016-12-27 16:17] LABS: % SATURATION 5 % (15-55); IRON 23 ug/dl (35-150); TOTAL IRON BIND CAPACITY 386 ug/dl (260-445); UNSAT IRON BIND CAPACITY 363 ug/dl (150-375)
--- NOTE | 2016-12-27 17:12 | NUR ---
MORE AWAKE AND ALERT. SPEECH IS BETTER. DRINKING WITHOUT ANY ISSUES.
--- NOTE | 2016-12-27 19:15 | NUR ---
PT RECEIVED LYING IN BED AWAKE AND ALERT AT THIS TIME. PT CONFUSED TO TIME, PLACE, AND SITUATION. ASSESSMENT COMPLETED PER FLOW SHEET AT THIS TIME. PT DENIES NEEDS. BED LOW. PHONE AND CALL LIGHT IN REACH. SRX2.
[2016-12-27 21:42] VITALS: BP 133/66
--- NOTE | 2016-12-27 21:48 | NUR ---
PT FSBS 144 AT THIS TIME. PT RESTING QUIETLY WITH EYES CLOSED. DENIES NEEDS. BED LOW. PHONE AND CALL LIGHT IN REACH. SRX2.
--- NOTE | 2016-12-27 23:26 | NUR ---
PT RESTING QUIETLY AT THIS TIME WITH EYES CLOSED. AROUSED EASILY. DENIES NEEDS. BED LOW. PHONE AND CALL LIGHT IN REACH. SRX2.
[2016-12-27 23:39] VITALS: BP 143/60
--- NOTE | 2016-12-28 | NUR ---
PT UP TO USE RESTROOM AT THIS TIME. HAD SMALL BM AND VOIDED AT THIS TIME WELL. ASSISTED PT BACK TO BED. DENIES OTHER NEEDS. BED LOW. PHONE AND CALL LIGHT IN REACH. SRX2.
--- NOTE | 2016-12-28 02:33 | NUR ---
PT RESTING QUIETLY AT THIS TIME WITH EYES CLOSED. RESPIRATIONS EVEN, NON-LABORED. NO ACUTE DISTRESS NOTED AT THIS TIME. BED LOW. PHONE AND CALL LIGHT IN REACH. SRX2.
--- NOTE | 2016-12-28 02:41 | NUR ---
PT REQUESTS JELLO AND PUDDING AT THIS TIME. INSTRUCTED PT TO PRESS CALL LIGHT IF HE NEEDED TO GET UP. PT VERBALIZED UNDERSTANDING AT THIS TIME. BED ALARM ON AND FUNCTIONING. BED LOW. PHONE AND CALL LIGHT IN REACH. SRX2.
[2016-12-28 04:01] VITALS: BP 151/55
--- NOTE | 2016-12-28 04:08 | NUR ---
UPON ENTERING PTS ROOM, IV CATHETER NOTED TO BE ON BEDSIDE TABLE. PT STATES HE PULLED IT OUT. CATHETER TIP INTACT. PT REFUSES TO BE STUCK AT THIS TIME.
[2016-12-28 05:59] LABS: BASOPHILS 0 % (0-2); EOSINOPHILS 1.8 % (0-7); HEMATOCRIT 28.2 % (42.0-54.0); IMMATURE GRANULOCYTES 0.2 % (0-5); LYMPHOCYTES 23.3 % (15-50); MCH 25.6 pg (26.0-34.0); MCHC 31.9 g/dL (31.0-37.0); MCV 80.1 fL (80.0-100.0); MEAN PLATELET VOLUME 11.3 fL (7.4-10.4); MONOCYTES 5.9 % (2-11); NEUTROPHILS 68.8 % (40-80); PLATELET COUNT 218 10x3/uL (130-400); RBC 3.52 10x6/uL (4.20-6.10); RDW 18.2 % (11.5-14.5)
[2016-12-28 06:13] LABS: WBC 6.2 10x3/uL (4.8-10.8)
[2016-12-28 06:17] LABS: ALBUMIN 3.1 g/dL (3.4-5.0); ANION GAP 14.4 mmol/L (8-16); BILIRUBIN - TOTAL 0.3 mg/dL (0.2-1.3); CALCIUM 9.3 mg/dL (8.5-10.1); CARBON DIOXIDE 23.3 mmol/L (21.0-32.0); CREATININE - SERUM 1.1 mg/dL (0.6-1.3); POTASSIUM - SERUM 3.7 mmol/L (3.5-5.1); PROTEIN - SERUM 7.6 g/dL (6.4-8.2)
--- NOTE | 2016-12-28 06:47 | NUR ---
ADMINISTERED PROTONIX PO PER ORDERS AT THIS TIME. PT FSBS 150. PT DENIES NEEDS. BED LOW. PHONE AND CALL LIGHT IN REACH. SRX2.
--- NOTE | 2016-12-28 07:34 | NUR ---
ASSESSMENT DONE. WITHOUT DISTRESS NOTED AT THIS TIME.
[2016-12-28 08:26] VITALS: BP 140/51
--- NOTE | 2016-12-28 09:34 | NUR ---
RESTS IN BED WITH CALL LIGHT IN REACH. WILL MONITOR NEEDS.
--- NOTE | 2016-12-28 11:00 | NUR ---
WILL NOT STAY IN BED. BED ALARM ON. MANUEL SARGENT HERE ORDER RECIVED FOR A DEREK BED. HOUSE SUP. NOTIFYED [RAUL]
[2016-12-28 11:15] VITALS: BP 139/66
[2016-12-28 14:36] VITALS: Ht 180.3 cm; Wt 74.5 kg
[2016-12-28 15:44] VITALS: BP 130/62
--- NOTE | 2016-12-28 16:30 | NUR ---
DEREK BED HERE. ASSISTED PT TO BED.
--- NOTE | 2016-12-28 16:40 | NUR ---
CM NOTE: Received a call from Lola with Adult Protective services about patient. She states that this patient fell at home and his 80 something year old mother is taking care of him, but is unable to do so. She states that the patient will not be able to return home with his mother being the family partner. Lola also stated that if she needed to put a hold on him that she would do that, if that was needed. Lola will be up at hospital tomorrow 12/29/16 to see patient and get records. CM will continue to follow.
--- NOTE | 2016-12-28 16:59 | NUR ---
OT NOTE: PT REQUIRES CGA WITH BED MOB FOR INCREASED SAFETY. PT COMPLETED SIMPLE ADL WITH MIN A. PT COMPLETED BUE GROSS MOTOR AX FOR I WITH ADLS. PT EXHIBITS POOR SAFETY AWARENESS. THANK YOU, RADHA CHAO/Maciej
--- NOTE | 2016-12-28 17:05 | NUR ---
EYES CLOSED WITH RESP EVEN AND REG.
--- NOTE | 2016-12-28 17:06 | NUR ---
WITHOUT DISTRESS NOTED AT THIS TIME.
--- NOTE | 2016-12-28 19:00 | NUR ---
INITIAL ROUNDS MADE. PT SITTING UP IN BED. NO NEEDS OR C/O AT THIS TIME. PT REMAINS CONFUSED AND UNABLE TO REORIENT. DEREK BED ZIPPED. CALL LIGHT IN REACH. WILL CONT TO MONITOR PER PROTOCOL.
[2016-12-28 20:19] VITALS: BP 127/53
--- NOTE | 2016-12-28 23:00 | NUR ---
SEE RESTRAINT FLOWSHEET FOR Q2H CHECKS.
--- NOTE | 2016-12-29 00:02 | NUR ---
PT BED SATURATED WITH URINE. BATH DONE, PT REMOVED FROM DEREK BED AT THIS TIME. LINENS CHANGED. PLACED BRIEF ON PT. BED ALARM ON. WILL MONITOR CLOSELY.
[2016-12-29 00:41] VITALS: BP 138/61
[2016-12-29 04:23] VITALS: BP 141/96
[2016-12-29 05:51] LABS: BASOPHILS 0 % (0-2); EOSINOPHILS 1.2 % (0-7); HEMATOCRIT 28.1 % (42.0-54.0); HEMOGLOBIN 9.2 g/dL (13.5-17.5); IMMATURE GRANULOCYTES 0.2 % (0-5); MCH 25.6 pg (26.0-34.0); MCHC 32.7 g/dL (31.0-37.0); MCV 78.3 fL (80.0-100.0); MONOCYTES 4.1 % (2-11); NEUTROPHILS 87.5 % (40-80); PLATELET COUNT 242 10x3/uL (130-400); RBC 3.59 10x6/uL (4.20-6.10)
[2016-12-29 05:53] LABS: WBC 13.3 10x3/uL (4.8-10.8)
[2016-12-29 06:24] LABS: ALBUMIN 3.3 g/dL (3.4-5.0); ALKALINE PHOSPHATASE 109 U/L (46-116); ALT (SGPT) 20 U/L (10-68); BILIRUBIN - TOTAL 0.36 mg/dL (0.2-1.3); CARBON DIOXIDE 22.8 mmol/L (21.0-32.0); CHLORIDE - SERUM 108 mmol/L (98-107); POTASSIUM - SERUM 3.3 mmol/L (3.5-5.1); PROTEIN - SERUM 7.2 g/dL (6.4-8.2); SODIUM 144 mmol/L (136-145); eGFR NON AFRICAN AMERICAN 81 mL/min (90-120)
[2016-12-29 06:27] LABS: CALC OSMOLALITY 283 mosm/kg (275-300); GLUCOSE 65 mg/dL (74-106); UREA NITROGEN 9 mg/dL (7-18)
--- NOTE | 2016-12-29 06:43 | NUR ---
PT RESTING WELL WITH EYES CLOSED, BED ALARM ON AT THIS TIME. PT HAS ATTEMPTED TO CLIMB OUT OF BED SEVERAL TIMES, IS EASILY REDIRECTED BACK TO BED TO LIE DOWN.
[2016-12-29 08:14] VITALS: BP 159/91
--- NOTE | 2016-12-29 08:38 | NUR ---
Patient Name: FIDE ATWOOD Admission Status: ER Accout number: [id number] Admission Date: 12-28-2016 : 1960 Admission Diagnosis: Attending: JOLENE Current LOS: 1 Anticipated DC Date: Planned Disposition: Primary Insurance: MEDICAID [place] Discharge Planning Comments: CM Note: CM met with patient to assess discharge planning/needs. Patient is not able to answer any questions that I ask. He is alert but not oriented. He is not able to tell me what the year is, who he lives with, his doctor's name, his mothers name. He stated that he lives in the hospital. Patient also stated that he can't think when he shakes. CM will continue to follow and assist as needed with discharge & will speak with Lola with APS when she arrives at the hospital today. Director Telecommunications: Louisa Hollingsworth * Is the patient Alert and Oriented? No 0 * Preadmission Environment Home with Family 0 * List name and contact numbers for known caregivers / representatives who currently or will assist patient after discharge: CAN'T REMEMBER 0 * Community resources currently utilized APS/CPS 0 * Please name any agencies selected above. [facility] WITH APS 0 * Additional services required to return to the preadmission environment? Yes 0 * Can the patient safely return to the preadmission environment? No 0 * Has this patient been hospitalized within the prior 30 days at any hospital? Yes 0 Grand Total: 0
[2016-12-29 11:49] VITALS: BP 156/69
--- NOTE | 2016-12-29 13:33 | NUR ---
THIS SHIFT PATIENT HAS BEEN IN CHAIR WITH ALARM ON. HE IS MORE COMFORTABLE IN THE CHAIR. HAS SLEPT IN INTERVALS. IS NOT ORIENTED TO TIME PLACE SITUATION BUT DOES ANSWER TO HIS NAME. WILL CONTINUE TO MONITOR.
--- NOTE | 2016-12-29 13:36 | NUR ---
CM Note: Spoke with Lola from APS ( [phone]) she stated that it would be ok for the patient to go home if Home Health was set up. Francoise SAGRENT notified and she ordered HH upon discharge. CM to set up home health. Brooke Hollingsworth RN
--- NOTE | 2016-12-29 13:57 | NUR ---
CM note: CM called mother Lyric ([phone]) to let her know that her son has discharge orders along with home health orders. Mother stated that she would be up in a little bit to come get him. Referral sent to [facility] health & called. Brooke Hollingsworth RN
[2016-12-29 15:51] VITALS: BP 144/73
--- NOTE | 2016-12-29 16:15 | NUR ---
CM note: Discharge placed on hold due to nursing concerns. waiting on PT to walk with patient. Mom (Lyric) called and explained that to her to wait to hear from [facility] before coming up here. CM also called and spoke with Lola from [facility] explained the above. Also explained to her that we set up [facility] for nursing, PT, and CHILD SUPPORT INVESTIGATOR consult. Lola was very thankful for the help. Pt discharge order still in place. Attempting to call mom ([phone]) for her to come pear picker patient, but she is not answering the phone. We will continue to try to call for pickup. claudette warner rn
--- NOTE | 2016-12-29 16:59 | NUR ---
CM: called mom Kelle) [phone] left message on her phone that her son had discharge orders and she needed to come to the hospital for discharge. Brooke Hollingsworth RN
--- NOTE | 2016-12-29 17:42 | NUR ---
UNABLE TO CONTACT MOTHER FOR DISCHARGE. MAY DC IN AM
[2016-12-29 19:00] VITALS: BP 135/51
--- NOTE | 2016-12-29 20:35 | NUR ---
RESUMED CARE OF PT, LYING IN BED RESPIRATIONS EVEN AND UNLABOREDON ROOM AIR. BED ALARM ON. NO NEEDS VOICED AT THIS TIME. CALL LIGHT IN REACH. WILL CONTINUE TO MONITOR.
[2016-12-30 04:00] VITALS: BP 165/65
[2016-12-30 05:43] LABS: BASOPHILS 0.1 % (0-2); EOSINOPHILS 3.7 % (0-7); HEMATOCRIT 26.4 % (42.0-54.0); HEMOGLOBIN 8.5 g/dL (13.5-17.5); IMMATURE GRANULOCYTES 0.1 % (0-5); LYMPHOCYTES 29.9 % (15-50); MCH 25.4 pg (26.0-34.0); MCHC 32.2 g/dL (31.0-37.0); MCV 78.8 fL (80.0-100.0); MEAN PLATELET VOLUME 11.4 fL (7.4-10.4); MONOCYTES 5.9 % (2-11); NEUTROPHILS 60.3 % (40-80); PLATELET COUNT 225 10x3/uL (130-400); RBC 3.35 10x6/uL (4.20-6.10); RDW 18.3 % (11.5-14.5)
[2016-12-30 06:04] LABS: WBC 6.8 10x3/uL (4.8-10.8)
[2016-12-30 06:16] LABS: ANION GAP 15.7 mmol/L (8-16); BILIRUBIN - TOTAL 0.5 mg/dL (0.2-1.3); CALCIUM 8.8 mg/dL (8.5-10.1); CARBON DIOXIDE 23.9 mmol/L (21.0-32.0); CREATININE - SERUM 1.1 mg/dL (0.6-1.3); POTASSIUM - SERUM 3.6 mmol/L (3.5-5.1); PROTEIN - SERUM 7.3 g/dL (6.4-8.2)
--- NOTE | 2016-12-30 07:30 | NUR ---
RECEIVED PT SITTING IN A CHAIR WITH CHAIR ALARM ON PT FREQUENTLY TRYING TO GET OUT OF CHAIR UNASSISTED VERY UNSTABLE ON HIS FEET WILL CONTINUE TO MONITOR
[2016-12-30 08:41] VITALS: BP 161/79
--- NOTE | 2016-12-30 11:44 | NUR ---
FSBS 130
--- NOTE | 2016-12-30 11:44 | NUR ---
FSBS 165 HUMALOG 2 UNITS SQ ABD
--- NOTE | 2016-12-30 12:44 | NUR ---
Patient Name: FIDE ATWOOD Encounter No: [id number] : 1960 Primary Insurance: MEDICAID [place] Anticipated DC Date: 12-30-2016 Planned Disposition: Home with Home Health External Planned Provider: [facility] / ADULT PROTECTIVE SERVICES HOME FOLLOW UP DCP follow-up note: CM SPOKE TO MERCHANDISE CARRIER NURSE WHO INFORMED CM THAT PT WAS DISCHARGED YESTERDAY AND STAFF WAS UNABLE TO REACH FAMILY TO CHANNEL EXECUTIVE PT. CM SPOKE TO PT IN ROOM. PT REPORTS PLAN TO RETURN HOME WITH HIS MOTHER'S ASSISTANCE, PT CONTINUES TO DECLINE SENIOR LIVING CARE PLACEMENT IN PENITENTIARY FACILITY. CM RECEIVED CALL FROM called PT'S mom (Lyric) [phone]; CYNDI WILL CHANNEL EXECUTIVE PT AT 2:00PM TODAY. CM DISCUSSED PT'S FUNCTIONING LEVEL AND PLACING PT IN A PENITENTIARY FACILITY. CYNDI REPORTS PT WANTS TO GO HOME AND SHE WILL CONTINUE TO BE WITH HIM AT HOME DURING THE DAY BUT CANNOT BE THERE THROUGH THE NIGHT. CYNDI REPORTS PT HAS BEEN FALLING AT HOME AND WOULD LIKE PT TO HAVE HOME ASSISTANCE. CM EXPLAINED THAT MEDICAID IS NOT GOING TO PAY FOR 24 HOUR CARE FOR PT AT HOME. CYNDI STATES THAT THE GIRL FROM THE HOSPITAL TOLD HER THAT THEY WERE SETTING UP HOME HEALTH TO HELP WITH PT AT HOME. CM EXPLAINED HOME HEALTH SERVICES AND ALSO EXPLAINED THAT ADULT PROTECTIVE SERVICES WOULD BE FOLLOWING UP WITH THEM AT HOME AND IF PT IS NOT ABLE TO SAFELY REMAIN IN THE HOME, CYNDI MIGHT HAVE TO PLACE PT IN A INTERMEDIATE FOR BUS ANALYST CARE. CYNDI REPORTED THAT [facility] IS NOT AN OPTION FAMILY HAS NEVER PAID [facility] WHAT IS OWED FROM PT'S LAST STAY THERE. CYNDI WILL CHANNEL EXECUTIVE PT AT 2PM TODAY AND TRY TO KEEP PT AT HIS HOME AND WILL WORK WITH HOME HEALTH AND ADULT PROTECTIVE SERVICES. Spoke with Lola from APS ( [phone]), DISCUSSED CM'S CONCERNS ABOUT PT GOING BACK HOME, PT AND MOTHER/POA REPORTING PLAN FOR PT TO GO HOME AND REFUSAL FOR BUS ANALYST CARE PLACEMENT OVER MULTIPLE ATTEMPTS BY THE HOSPITAL. LOLA STATED THAT SHE HAS TO FIND THE PT IN THOSE PARTICULAR CIRCUMSTANCES AT HOME TO TAKE ACTION; IF PT IS NOT SUCCESSFUL AT HOME, PT MAY HAVE TO BE PLACED IN A INTERMEDIATE. [facility] ASKED THAT HOME HEALTH BE NOTIFIED OF APS INVOLVEMENT. CM CALLED [employer] [facility], , SPOKE TO [facility] WHO HAS RECEIVED REFERRAL AND WILL PLACE PT ON LIST FOR ADMISSION TOMORROW FOR HOME HEALTH SERVICES. [facility] REPORTS THEY WILL CONTACT APS IF PT IS FOUND TO BE IN UNSAFE CONDITIONS. CM PROVIDED [facility]'S CELL NUMBER TO [facility]. MERCHANDISE CARRIER NOTIFIED. BEDSIDE NURSE NOTIFIED. PT'S MOTHER TO CHANNEL EXECUTIVE PT AT 2PM TODAY. CM TO FAX DISCHARGE INFORMATION TO [facility] AT [phone] AND [facility] ADULT PROTECTIVE SERVICES AT [phone]. Brooks Guillen, CASE MANAGEMENT
--- NOTE | 2016-12-30 14:02 | NUR ---
OT NOTE: UPON ENTERING ROOM , PT WAS AMBULATING AROUND BED WITH SHEETS WRAPPED ALL AROUND HIS LOWER HALF. PT WITH POOR BALANCE AND SAFETY AWARENESS. ASSISTED PT BY REMOVING SHEETS SO THAT HE WOULD NOT TRIP; GUIDED PT TO BATHROOM WHERE HE SAT DOWN ON TOILET..PT REMAINS CONFUSED AND DISORIENTED. MOVING AROUND BETTER THAN YESTERDAY; NO C/O R SHOULDER PAIN TODAY
--- NOTE | 2016-12-30 14:20 | NUR ---
REVIEWED DISCHARGE INSTRUCTIONS WITH PT AND MOTHER SHE STATES UNDERSTANDING PT IS ORIENTED TO SELF ONLY COPY GIVEN TO MOTHER PT DISCHARGED HOME LEFT UNIT VIA W/C WITH ALL PERSONAL BELONGINGS
== END 2016-12-30 14:20 | disposition home health service (06) | DRG 872 ==
LOC: D.ER 09:23 → OBSVTIME 12:13 → D.M2 12:13
PROVIDERS: Emergency Medicine Emergency Medical Services; ADMIT Family Medicine
DX: A41.02 Sepsis due to Methicillin resistant Staphylococcus aureus (principal); F17.203 Nicotine dependence unspecified, with withdrawal; I25.10 Atherosclerotic heart disease of native coronary artery without angina pectoris; R41.82 Altered mental status, unspecified; E87.5 Hyperkalemia; E11.8 Type 2 diabetes mellitus with unspecified complications; I11.0 Hypertensive heart disease with heart failure; I50.9 Heart failure, unspecified; Z86.73 Personal history of transient ischemic attack (TIA), and cerebral infarction without residual deficits; S01.01XA Laceration without foreign body of scalp, initial encounter; W19.XXXA Unspecified fall, initial encounter; D64.9 Anemia, unspecified; G93.89 Other specified disorders of brain; M25.511 Pain in right shoulder

== ENCOUNTER 2017-07-14 10:08 | Inpatient (IN) | payer MEDICAID ==
[~2017-07-14] VITALS: Ht 180.3 cm; Wt 76.5 kg
--- NOTE | ~2017-07-14 | CN ---
PATIENT NAME:FIDE QUAN MEDICAL RECORD: [id number] : 56 LOCATION:[facility] D.2112 ADMIT DATE: 07/14/17 ACCOUNT: [id number] CONSULTING PHYSICIAN: CLIFTON SANDOVAL MD REFERRING PHYSICIAN: CATHRYN PICHARDO MD DATE OF CONSULTATION: 07/14/2017 CARDIOLOGY CONSULTATION DATE OF SERVICE: 07/14/2017 DIAGNOSES: 1. Elevated troponin. 2. Abnormal ECG. 3. Coronary artery disease. 4. Status post coronary bypass graft surgery. 5. Hypertension. 6. Diabetes. HISTORY OF PRESENT ILLNESS: Mr. Quan is totally asymptomatic from a cardiac standpoint. He has had a stroke in the past for which his mother took care of him. He has been more confused as of late. Mother has been unable to take care of him. An EKG was obtained, it does show ST-T abnormalities laterally, we do not know if this is a change or old. His troponin is mildly elevated. He denies any chest pain or chest discomfort. Denies any shortness of breath. He does have a history of hypertension for which he is on clonidine as well as a calcium channel donal. He has not been on a beta donal due to episodes of hypoglycemia in the past. His heart rate is in the 70s. His systolic blood pressure is in the 140s. He does not want any cardiac workup or treatment per se. PHYSICAL EXAMINATION: GENERAL APPEARANCE: Well-nourished, well-developed, appears stated age. Level of distress, comfortable. PSYCHIATRIC: Mental status, alert, normal affect. Orientation, oriented to time, place and person. EYES: Lids and conjunctiva, noninjected. No discharge, no pallor. ENT: Lips, teeth, gums, normal dentition. Oropharynx, no cyanosis, no pallor. NECK: Carotid arteries, bilateral normal upstroke, no bruits, no thrills. JUGULAR VEINS: No jugular venous pressure or distention. CERVICAL LYMPH NODES: Nontender, nonenlarged. THYROID: Not enlarged. Nontender. No nodules. LUNGS: Respiratory effort, unlabored. CHEST: Normal curvature. No thoracic deformity. No chest wall tenderness. Percussion, resonant. Auscultation, clear. No wheezes, no rales, no rhonchi. CARDIOVASCULAR: Precordial exam, nondisplaced. No heaves or pericardial thrills. Rate and rhythm, regular. Heart sounds, normal S1, normal S2. No S3, no gallop, no rub. Systolic murmur, not heard. Diastolic murmur, not heard. EXTREMITIES: No cyanosis, no edema. Peripheral pulses, full and equal in all extremities, except as noted. No bruits appreciated. ABDOMEN: Soft, nondistended. Normal aorta. No bruit. Nontender. No masses. Liver, nontender, no hepatomegaly. Spleen, nontender, no splenomegaly. MUSCULOSKELETAL: No joint tenderness. No joint swelling. No erythema. NEUROLOGICAL: Normal gait, normal strength, normal tone. SKIN: Warm and dry. CONSULT REPORT [id number] FIDE QUAN OVERALL IMPRESSION: Elevated troponin with abnormal ECG. Most likely, he does have recurrent hemodynamically significant coronary artery disease, but at this time he is totally asymptomatic, does not want any further cardiac workup, especially does not want any invasive cardiac workup. I would not make any changes in his medication and continue this. If he does develop chest pain or chest discomfort, can only readdress the issue of intervention at that time. TRANSINT:[id number] Voice Confirmation ID: [id number] DOCUMENT ID: [id number] CLIFTON SANODVAL MD at 1215 CC: [id number] DICTATION DATE: 07/14/17 1203 OUTBOARD MOTORS EXPERIMENTAL MECHANIC: 07/14/17 1301 ADM IN [facility] [address] [id number]
--- NOTE | ~2017-07-14 | CN ---
PATIENT NAME:FIDE ATWOOD MEDICAL RECORD: [id number] : [birth year] LOCATION:[facility] D.2112 ADMIT DATE: 07/14/17 ACCOUNT: [id number] CONSULTING PHYSICIAN: DARLIN MEJÍA MD REFERRING PHYSICIAN: CATHRYN PICHARDO MD DATE OF CONSULTATION: 07/20/2017 Psychiatric Consultation IDENTIFYING DATA: The patient is a 57-year-old and he is very well known to me from multiple previous clinical contacts. The patient has a long history of alcoholism and has an alcohol related dementia. He apparently regularly, presents to our facility, delusional and combative and indeed those of the circumstances that caused him to present today. The patient has a history of congestive heart failure, stroke, diabetes, and hypertension and he is not able to care for himself and clearly is not receiving the care he needs living with his mother. MENTAL STATUS EXAMINATION: The patient is awake, alert and oriented only to person. His mood is flat. His affect is appropriate. Thought processes are very disorganized and his memory, concentration, and abstraction abilities are severely impaired. He denies that he would seek to harm himself or others. He denies overt psychotic symptoms. ASSESSMENT: Alcohol-related dementia. PLAN: This patient needs snf placement. He is not functioning in the community and if he refuses or does not go to the snf, I would strongly recommend that adult protective services become involved in the case. He requires a special diet and medications for his blood pressure, diabetes, and congestive heart failure. I am going to prescribe scheduled doses of benzodiazepine and an antipsychotic medication for his current behaviors. I am also going to prescribe for p.r.n. use an antipsychotic and a benzodiazepine. I will give him both thiamin and folate on the suspicion that he may well have been drinking recently. Again, this patient is not being properly supervised in the community. He lacks the capacity to make reasonable informed consent decisions about his person or state and unless some responsible family member or friend can take charge of him it seems quite clear to me that the least restrictive environment is a snf. I would further recommend that it is time to involve the state authorities in this case since he is endangering himself in his current circumstances and is repeatedly presenting to the Emergency Room in this hospital in this condition. TRANSINT:[id number] Voice Confirmation ID: [id number] DOCUMENT ID: [id number] DARLIN MEJÍA MD at 1407 CC: [id number] DICTATION DATE: 07/20/171811 MILLING OPERATOR: 07/20/172106 ADM IN [facility] [address] [id number]
[2017-07-14 10:43] LABS: BASOPHILS 0.1 % (0-2); EOSINOPHILS 2.1 % (0-7); HEMATOCRIT 34.6 % (42.0-54.0); HEMOGLOBIN 11.2 g/dL (13.5-17.5); IMMATURE GRANULOCYTES 0.2 % (0-5); LYMPHOCYTES 26.1 % (15-50); MCH 25.7 pg (26.0-34.0); MCHC 32.4 g/dL (31.0-37.0); MCV 79.4 fL (80.0-100.0); MEAN PLATELET VOLUME 11.2 fL (7.4-10.4); MONOCYTES 5.7 % (2-11); NEUTROPHILS 65.8 % (40-80); PLATELET COUNT 254 10x3/uL (130-400); RBC 4.36 10x6/uL (4.20-6.10); RDW 14.7 % (11.5-14.5); WBC 9.7 10x3/uL (4.8-10.8)
[2017-07-14 11:03] LABS: ALBUMIN 3.4 g/dL (3.4-5.0); ALKALINE PHOSPHATASE 162 U/L (46-116); ALT (SGPT) 25 U/L (10-68); BILIRUBIN - TOTAL 0.12 mg/dL (0.2-1.3); CALC OSMOLALITY 292 mosm/kg (275-300); CALCIUM 8.7 mg/dL (8.5-10.1); CARBON DIOXIDE 25.4 mmol/L (21.0-32.0); CHLORIDE - SERUM 105 mmol/L (98-107); POTASSIUM - SERUM 4.3 mmol/L (3.5-5.1); PROTEIN - SERUM 7.4 g/dL (6.4-8.2); SODIUM 143 mmol/L (136-145); UREA NITROGEN 14 mg/dL (7-18); eGFR NON AFRICAN AMERICAN 81 mL/min (90-120)
[2017-07-14 11:04] LABS: GLUCOSE 224 mg/dL (74-106)
[2017-07-14 11:18] LABS: CREATINE KINASE 87 UL (21-232)
[2017-07-14 11:22] LABS: TROPONIN-I 0.508 ng/mL (0.000-0.060)
[2017-07-14 12:07] LABS: APPEARANCE CLEAR (CLEAR); BILIRUBIN NEGATIVE (NEGATIVE); COLOR YELLOW (YELLOW); GLUCOSE 250 mg/dL (NEGATIVE); KETONE NEGATIVE (NEGATIVE); NITRITE NEGATIVE (NEGATIVE); PROTEIN NEGATIVE (NEGATIVE); SPECIFIC GRAVITY 1.015 (1.005-1.020); UROBILINOGEN NORMAL (NORMAL)
[2017-07-14 12:14] LABS: UDS - AMPHET NEGATIVE QUAL (NEGATIVE); UDS - BARB NEGATIVE QUAL (NEGATIVE); UDS - BENZO NEGATIVE QUAL (NEGATIVE); UDS - COCAINE NEGATIVE QUAL (NEGATIVE); UDS - OPIATE NEGATIVE QUAL (NEGATIVE); UDS - PCP NEGATIVE QUAL (NEGATIVE); UDS - THC NEGATIVE QUAL (NEGATIVE)
[2017-07-14 14:46] VITALS: BP 172/62; BMI 24.4
[2017-07-14 16:30] VITALS: BP 166/66
[2017-07-14 19:08] LABS: CKMB 1.3 U/L (0.0-3.6); CREATINE KINASE 87 UL (21-232)
[2017-07-14 19:09] LABS: TROPONIN-I 0.484 ng/mL (0.000-0.060)
[2017-07-14 22:08] VITALS: BP 170/71
[2017-07-15 01:24] LABS: CKMB 0.9 U/L (0.0-3.6); CREATINE KINASE 81 UL (21-232)
[2017-07-15 05:06] VITALS: BP 163/63
[2017-07-15 05:43] LABS: BASOPHILS 0.2 % (0-2); HEMATOCRIT 32.7 % (42.0-54.0); HEMOGLOBIN 10.8 g/dL (13.5-17.5); IMMATURE GRANULOCYTES 0.1 % (0-5); LYMPHOCYTES 30.1 % (15-50); MCH 25.8 pg (26.0-34.0); MEAN PLATELET VOLUME 11.3 fL (7.4-10.4); MONOCYTES 8.1 % (2-11); NEUTROPHILS 59.5 % (40-80); PLATELET COUNT 255 10x3/uL (130-400); RBC 4.19 10x6/uL (4.20-6.10); RDW 14.7 % (11.5-14.5); WBC 8.7 10x3/uL (4.8-10.8)
[2017-07-15 06:13] LABS: ALBUMIN 3.1 g/dL (3.4-5.0); ANION GAP 11.6 mmol/L (8-16); BILIRUBIN - TOTAL 0.28 mg/dL (0.2-1.3); CALCIUM 8.5 mg/dL (8.5-10.1); CARBON DIOXIDE 28.3 mmol/L (21.0-32.0); CREATININE - SERUM 1.1 mg/dL (0.6-1.3); POTASSIUM - SERUM 3.9 mmol/L (3.5-5.1); PROTEIN - SERUM 7.2 g/dL (6.4-8.2)
[2017-07-15 10:10] VITALS: BP 108/71
[2017-07-15 10:43] VITALS: Ht 180.3 cm; Wt 76.5 kg
[2017-07-15 13:14] VITALS: BP 178/70
[2017-07-15 17:14] VITALS: BP 164/67
[2017-07-15 20:00] VITALS: BP 176/58
[2017-07-16] VITALS: BP 123/70; BP 171/63
[2017-07-16 04:00] VITALS: BP 169/60
[2017-07-16 04:53] LABS: BASOPHILS 0.1 % (0-2); EOSINOPHILS 2.4 % (0-7); HEMATOCRIT 33.7 % (42.0-54.0); HEMOGLOBIN 11.1 g/dL (13.5-17.5); IMMATURE GRANULOCYTES 0.2 % (0-5); LYMPHOCYTES 32.3 % (15-50); MCH 25.8 pg (26.0-34.0); MCHC 32.9 g/dL (31.0-37.0); MCV 78.4 fL (80.0-100.0); MEAN PLATELET VOLUME 12.1 fL (7.4-10.4); MONOCYTES 8.2 % (2-11); NEUTROPHILS 56.8 % (40-80); PLATELET COUNT 263 10x3/uL (130-400); RDW 14.6 % (11.5-14.5); WBC 8.7 10x3/uL (4.8-10.8)
[2017-07-16 05:23] LABS: ALBUMIN 3.1 g/dL (3.4-5.0); ALKALINE PHOSPHATASE 149 U/L (46-116); ALT (SGPT) 20 U/L (10-68); BILIRUBIN - TOTAL 0.17 mg/dL (0.2-1.3); CALCIUM 8.8 mg/dL (8.5-10.1); CARBON DIOXIDE 27.8 mmol/L (21.0-32.0); CHLORIDE - SERUM 104 mmol/L (98-107); PROTEIN - SERUM 7.4 g/dL (6.4-8.2); SODIUM 139 mmol/L (136-145); eGFR NON AFRICAN AMERICAN 81 mL/min (90-120)
[2017-07-16 05:24] LABS: CALC OSMOLALITY 283 mosm/kg (275-300); GLUCOSE 175 mg/dL (74-106); UREA NITROGEN 18 mg/dL (7-18)
[2017-07-16 08:14] VITALS: BP 156/67
[2017-07-16 11:35] VITALS: BP 157/69
[2017-07-16 16:20] VITALS: BP 165/62
[2017-07-16 20:00] VITALS: BP 186/59
[2017-07-17] VITALS: BP 167/61
[2017-07-17 06:25] LABS: BASOPHILS 0.1 % (0-2); EOSINOPHILS 1.9 % (0-7); HEMATOCRIT 34.2 % (42.0-54.0); HEMOGLOBIN 11.2 g/dL (13.5-17.5); IMMATURE GRANULOCYTES 0.2 % (0-5); LYMPHOCYTES 29.8 % (15-50); MCH 25.5 pg (26.0-34.0); MCHC 32.7 g/dL (31.0-37.0); MCV 77.9 fL (80.0-100.0); MEAN PLATELET VOLUME 12.3 fL (7.4-10.4); MONOCYTES 9.4 % (2-11); NEUTROPHILS 58.6 % (40-80); PLATELET COUNT 283 10x3/uL (130-400); RBC 4.39 10x6/uL (4.20-6.10); RDW 14.6 % (11.5-14.5); WBC 9.9 10x3/uL (4.8-10.8)
[2017-07-17 06:44] LABS: ALBUMIN 3.3 g/dL (3.4-5.0); ALKALINE PHOSPHATASE 145 U/L (46-116); BILIRUBIN - TOTAL 0.19 mg/dL (0.2-1.3); CALC OSMOLALITY 279 mosm/kg (275-300); CALCIUM 8.8 mg/dL (8.5-10.1); CHLORIDE - SERUM 101 mmol/L (98-107); GLUCOSE 149 mg/dL (74-106); POTASSIUM - SERUM 4.2 mmol/L (3.5-5.1); PROTEIN - SERUM 7.5 g/dL (6.4-8.2); SODIUM 138 mmol/L (136-145); UREA NITROGEN 16 mg/dL (7-18); eGFR NON AFRICAN AMERICAN 81 mL/min (90-120)
[2017-07-17 06:45] LABS: ALT (SGPT) 27 U/L (10-68)
[2017-07-17 08:05] VITALS: BP 176/75
[2017-07-17 11:34] VITALS: BP 181/78
[2017-07-17 15:56] VITALS: BP 185/79
[2017-07-17 20:23] VITALS: BP 197/67
[2017-07-18 01:21] VITALS: BP 155/59
[2017-07-18 04:48] VITALS: BP 158/71
[2017-07-18 06:06] LABS: BASOPHILS 0.1 % (0-2); HEMATOCRIT 33.8 % (42.0-54.0); HEMOGLOBIN 11.2 g/dL (13.5-17.5); IMMATURE GRANULOCYTES 0.4 % (0-5); LYMPHOCYTES 22.9 % (15-50); MCHC 33.1 g/dL (31.0-37.0); MCV 78.4 fL (80.0-100.0); MEAN PLATELET VOLUME 11.6 fL (7.4-10.4); MONOCYTES 10.7 % (2-11); NEUTROPHILS 63.9 % (40-80); RBC 4.31 10x6/uL (4.20-6.10); RDW 14.7 % (11.5-14.5); WBC 10.2 10x3/uL (4.8-10.8)
[2017-07-18 06:17] LABS: PLATELET COUNT 180 10x3/uL (130-400)
[2017-07-18 06:39] LABS: ALBUMIN 3.2 g/dL (3.4-5.0); ALKALINE PHOSPHATASE 156 U/L (46-116); ALT (SGPT) 28 U/L (10-68); BILIRUBIN - TOTAL 0.26 mg/dL (0.2-1.3); CARBON DIOXIDE 23.8 mmol/L (21.0-32.0); CHLORIDE - SERUM 103 mmol/L (98-107); CREATININE - SERUM 0.9 mg/dL (0.6-1.3); PROTEIN - SERUM 7.6 g/dL (6.4-8.2); SODIUM 137 mmol/L (136-145); eGFR NON AFRICAN AMERICAN > 90 mL/min (90-120)
[2017-07-18 06:44] LABS: CALC OSMOLALITY 282 mosm/kg (275-300); GLUCOSE 201 mg/dL (74-106); UREA NITROGEN 22 mg/dL (7-18)
[2017-07-18 08:00] VITALS: BP 160/70
[2017-07-18 12:00] VITALS: BP 180/62
[2017-07-18 16:00] VITALS: BP 177/56
[2017-07-18 20:11] VITALS: BP 178/68
[2017-07-19 00:32] VITALS: BP 181/74
[2017-07-19 04:20] VITALS: BP 175/66
[2017-07-19 05:20] LABS: BASOPHILS 0.2 % (0-2); EOSINOPHILS 2.4 % (0-7); HEMATOCRIT 32.6 % (42.0-54.0); HEMOGLOBIN 10.8 g/dL (13.5-17.5); IMMATURE GRANULOCYTES 0.3 % (0-5); LYMPHOCYTES 32.6 % (15-50); MCHC 33.1 g/dL (31.0-37.0); MCV 78.6 fL (80.0-100.0); MEAN PLATELET VOLUME 12.1 fL (7.4-10.4); MONOCYTES 10.1 % (2-11); NEUTROPHILS 54.4 % (40-80); RBC 4.15 10x6/uL (4.20-6.10); RDW 14.8 % (11.5-14.5); WBC 9.1 10x3/uL (4.8-10.8)
[2017-07-19 05:26] LABS: PLATELET COUNT 237 10x3/uL (130-400)
[2017-07-19 05:44] LABS: ANION GAP 13.2 mmol/L (8-16); BILIRUBIN - TOTAL 0.2 mg/dL (0.2-1.3); CALCIUM 8.8 mg/dL (8.5-10.1); CARBON DIOXIDE 26.1 mmol/L (21.0-32.0); POTASSIUM - SERUM 4.3 mmol/L (3.5-5.1)
[2017-07-19 05:45] LABS: CREATININE - SERUM 1.2 mg/dL (0.6-1.3)
[2017-07-19 07:46] VITALS: BP 168/61
[2017-07-19 12:42] VITALS: BP 167/62
[2017-07-19 17:00] VITALS: BP 167/71
[2017-07-19 21:29] VITALS: BP 180/74
[2017-07-20 00:48] VITALS: BP 177/75
[2017-07-20 08:09] VITALS: BP 185/93
[2017-07-20 12:54] VITALS: BP 154/66
[2017-07-20 15:59] VITALS: BP 173/66
[2017-07-20 22:15] VITALS: BP 189/75
[2017-07-21 04:00] VITALS: BP 177/78
[2017-07-21 08:46] VITALS: BP 157/73
[2017-07-21 12:07] VITALS: BP 158/68
[2017-07-21 19:00] VITALS: BP 134/77
[2017-07-22 04:00] VITALS: BP 154/69
[2017-07-22 08:55] VITALS: BP 163/73
[2017-07-22 11:46] VITALS: BP 151/69
[2017-07-22 15:46] VITALS: BP 160/71
[2017-07-22 21:04] VITALS: BP 182/69
[2017-07-23 00:52] VITALS: BP 183/79
[2017-07-23 05:21] VITALS: BP 176/78
[2017-07-23 08:00] VITALS: BP 139/70
[2017-07-23 12:00] VITALS: BP 151/56
[2017-07-24] VITALS: BP 168/55
[2017-07-24 08:00] VITALS: BP 157/76
[2017-07-24 09:09] LABS: BASOPHILS 0.2 % (0-2); EOSINOPHILS 2.5 % (0-7); HEMATOCRIT 36.2 % (42.0-54.0); HEMOGLOBIN 11.7 g/dL (13.5-17.5); IMMATURE GRANULOCYTES 0.2 % (0-5); LYMPHOCYTES 26.4 % (15-50); MCH 25.7 pg (26.0-34.0); MCHC 32.3 g/dL (31.0-37.0); MCV 79.4 fL (80.0-100.0); MEAN PLATELET VOLUME 12.1 fL (7.4-10.4); MONOCYTES 7.5 % (2-11); NEUTROPHILS 63.2 % (40-80); PLATELET COUNT 242 10x3/uL (130-400); RBC 4.56 10x6/uL (4.20-6.10); RDW 14.4 % (11.5-14.5); WBC 9.4 10x3/uL (4.8-10.8)
[2017-07-24 09:26] LABS: ANION GAP 15.3 mmol/L (8-16); CALCIUM 9.4 mg/dL (8.5-10.1); CARBON DIOXIDE 25.3 mmol/L (21.0-32.0); CREATININE - SERUM 1.4 mg/dL (0.6-1.3); POTASSIUM - SERUM 4.6 mmol/L (3.5-5.1)
[2017-07-24 12:00] VITALS: BP 111/63
[2017-07-24 16:00] VITALS: BP 160/60
[2017-07-24 20:00] VITALS: BP 170/60
[2017-07-25] VITALS: BP 150/66
[2017-07-25 07:39] VITALS: BP 174/87
[2017-07-25 11:56] VITALS: BP 166/80
[2017-07-25 15:51] VITALS: BP 162/78
[2017-07-25 22:39] VITALS: BP 177/75
[2017-07-26 06:16] VITALS: BP 185/60
[2017-07-26 07:41] VITALS: BP 184/65
[2017-07-26 11:19] VITALS: BP 136/74
[2017-07-26 15:45] VITALS: BP 114/63
[2017-07-26 21:12] VITALS: BP 198/78
[2017-07-27 01:50] VITALS: BP 161/61
[2017-07-27 05:54] VITALS: BP 159/68
[2017-07-27 07:00] VITALS: BP 170/83
[2017-07-27 11:00] VITALS: BP 141/53
[2017-07-27 15:07] VITALS: BP 166/57
[2017-07-27 21:14] VITALS: BP 191/66
[2017-07-28 01:16] VITALS: BP 188/63
[2017-07-28 07:49] VITALS: BP 128/72
[2017-07-28 12:05] VITALS: BP 132/84
[2017-07-28 15:45] VITALS: BP 126/74
[2017-07-28 20:21] VITALS: BP 192/69
[2017-07-29 00:41] VITALS: BP 181/78
[2017-07-29 04:29] VITALS: BP 183/70
[2017-07-29 07:45] LABS: BASOPHILS 0.1 % (0-2); EOSINOPHILS 3.1 % (0-7); HEMATOCRIT 33.5 % (42.0-54.0); HEMOGLOBIN 10.9 g/dL (13.5-17.5); IMMATURE GRANULOCYTES 0.2 % (0-5); LYMPHOCYTES 28.6 % (15-50); MCH 25.8 pg (26.0-34.0); MCHC 32.5 g/dL (31.0-37.0); MCV 79.4 fL (80.0-100.0); MEAN PLATELET VOLUME 11.4 fL (7.4-10.4); MONOCYTES 8.8 % (2-11); NEUTROPHILS 59.2 % (40-80); PLATELET COUNT 219 10x3/uL (130-400); RBC 4.22 10x6/uL (4.20-6.10); RDW 14.7 % (11.5-14.5); WBC 9.9 10x3/uL (4.8-10.8)
[2017-07-29 07:58] LABS: ANION GAP 12.6 mmol/L (8-16); CALCIUM 9.3 mg/dL (8.5-10.1); CARBON DIOXIDE 27.4 mmol/L (21.0-32.0); CREATININE - SERUM 1.3 mg/dL (0.6-1.3)
[2017-07-29 08:16] VITALS: BP 207/97
[2017-07-29 14:12] VITALS: BP 163/61
[2017-07-29 15:20] VITALS: BP 166/65
[2017-07-29 20:19] VITALS: BP 163/80
[2017-07-30 00:16] VITALS: BP 140/57
[2017-07-30 05:31] VITALS: BP 172/80
[2017-07-30 08:30] VITALS: BP 173/77
[2017-07-30 11:47] VITALS: BP 144/58
[2017-07-30 16:50] VITALS: BP 130/56
[2017-07-31 04:00] VITALS: BP 154/85
[2017-07-31 06:03] LABS: BASOPHILS 0.1 % (0-2); EOSINOPHILS 3.4 % (0-7); HEMATOCRIT 32.8 % (42.0-54.0); HEMOGLOBIN 10.8 g/dL (13.5-17.5); IMMATURE GRANULOCYTES 0.2 % (0-5); LYMPHOCYTES 25.4 % (15-50); MCH 25.7 pg (26.0-34.0); MCHC 32.9 g/dL (31.0-37.0); MCV 77.9 fL (80.0-100.0); NEUTROPHILS 61.9 % (40-80); PLATELET COUNT 242 10x3/uL (130-400); RBC 4.21 10x6/uL (4.20-6.10); RDW 14.5 % (11.5-14.5); WBC 8.3 10x3/uL (4.8-10.8)
[2017-07-31 06:33] LABS: ANION GAP 12.2 mmol/L (8-16); CALCIUM 9.2 mg/dL (8.5-10.1); CARBON DIOXIDE 27.2 mmol/L (21.0-32.0); CREATININE - SERUM 1.2 mg/dL (0.6-1.3); POTASSIUM - SERUM 4.4 mmol/L (3.5-5.1)
[2017-07-31 08:00] VITALS: BP 146/80
[2017-07-31 12:43] VITALS: BP 142/66
[2017-07-31 16:42] VITALS: BP 135/64
[2017-07-31 20:58] VITALS: BP 161/56
[2017-08-01 05:54] VITALS: BP 154/52
[2017-08-01 08:20] VITALS: BP 130/76
[2017-08-01 11:15] VITALS: BP 133/72
[2017-08-01 15:45] VITALS: BP 142/86
[2017-08-01 20:00] VITALS: BP 187/76
[2017-08-02 02:30] VITALS: BP 180/92
[2017-08-02 04:25] LABS: BASOPHILS 0.1 % (0-2); EOSINOPHILS 1.8 % (0-7); HEMATOCRIT 31.8 % (42.0-54.0); HEMOGLOBIN 10.5 g/dL (13.5-17.5); IMMATURE GRANULOCYTES 0.4 % (0-5); LYMPHOCYTES 25.1 % (15-50); MCH 25.8 pg (26.0-34.0); MCV 78.1 fL (80.0-100.0); MEAN PLATELET VOLUME 11.6 fL (7.4-10.4); MONOCYTES 8.6 % (2-11); PLATELET COUNT 222 10x3/uL (130-400); RBC 4.07 10x6/uL (4.20-6.10); RDW 14.6 % (11.5-14.5)
[2017-08-02 04:32] LABS: WBC 10.7 10x3/uL (4.8-10.8)
[2017-08-02 04:47] LABS: ANION GAP 14.4 mmol/L (8-16); CALCIUM 8.9 mg/dL (8.5-10.1); CARBON DIOXIDE 24.6 mmol/L (21.0-32.0); CREATININE - SERUM 1.4 mg/dL (0.6-1.3)
[2017-08-02 05:52] VITALS: BP 165/62
[2017-08-02 07:55] VITALS: BP 136/77
[2017-08-02 11:52] VITALS: BP 140/68
[2017-08-02 16:11] VITALS: BP 138/77
[2017-08-02 21:08] VITALS: BP 164/73
[2017-08-03 00:48] VITALS: BP 180/78
[2017-08-03 04:21] VITALS: BP 167/80
[2017-08-03 06:10] LABS: BASOPHILS 0.1 % (0-2); EOSINOPHILS 2.7 % (0-7); HEMATOCRIT 34.7 % (42.0-54.0); HEMOGLOBIN 11.4 g/dL (13.5-17.5); IMMATURE GRANULOCYTES 0.4 % (0-5); LYMPHOCYTES 28.6 % (15-50); MCH 25.8 pg (26.0-34.0); MCHC 32.9 g/dL (31.0-37.0); MCV 78.5 fL (80.0-100.0); MEAN PLATELET VOLUME 11.9 fL (7.4-10.4); MONOCYTES 7.2 % (2-11); PLATELET COUNT 249 10x3/uL (130-400); RBC 4.42 10x6/uL (4.20-6.10); RDW 14.7 % (11.5-14.5); WBC 12.8 10x3/uL (4.8-10.8)
[2017-08-03 06:31] LABS: ANION GAP 14.5 mmol/L (8-16); CALCIUM 9.7 mg/dL (8.5-10.1); CARBON DIOXIDE 25.9 mmol/L (21.0-32.0); CREATININE - SERUM 1.3 mg/dL (0.6-1.3); POTASSIUM - SERUM 4.4 mmol/L (3.5-5.1)
[2017-08-03 07:57] VITALS: BP 187/84
[2017-08-03 11:45] VITALS: BP 161/79
[2017-08-03 16:00] VITALS: BP 131/56
[2017-08-04 03:54] VITALS: BP 186/52
[2017-08-04 06:15] LABS: BASOPHILS 0.1 % (0-2); HEMATOCRIT 33.7 % (42.0-54.0); HEMOGLOBIN 11.3 g/dL (13.5-17.5); IMMATURE GRANULOCYTES 0.3 % (0-5); LYMPHOCYTES 29.4 % (15-50); MCH 26.1 pg (26.0-34.0); MCHC 33.5 g/dL (31.0-37.0); MCV 77.8 fL (80.0-100.0); MEAN PLATELET VOLUME 11.8 fL (7.4-10.4); MONOCYTES 8.5 % (2-11); NEUTROPHILS 58.7 % (40-80); PLATELET COUNT 254 10x3/uL (130-400); RBC 4.33 10x6/uL (4.20-6.10); RDW 14.6 % (11.5-14.5); WBC 10.7 10x3/uL (4.8-10.8)
[2017-08-04 06:21] LABS: ANION GAP 12.5 mmol/L (8-16); CALCIUM 9.3 mg/dL (8.5-10.1); CARBON DIOXIDE 25.7 mmol/L (21.0-32.0); CREATININE - SERUM 1.3 mg/dL (0.6-1.3); POTASSIUM - SERUM 4.2 mmol/L (3.5-5.1)
[2017-08-04 07:48] VITALS: BP 182/85
[2017-08-04 11:32] VITALS: BP 150/66
[2017-08-04 15:58] VITALS: BP 136/64
[2017-08-04 20:06] VITALS: BP 141/76
[2017-08-05] VITALS: BP 200/93
[2017-08-05 05:26] LABS: BASOPHILS 0 % (0-2); EOSINOPHILS 3.4 % (0-7); HEMATOCRIT 31.4 % (42.0-54.0); HEMOGLOBIN 10.4 g/dL (13.5-17.5); IMMATURE GRANULOCYTES 0.2 % (0-5); LYMPHOCYTES 29.2 % (15-50); MCH 25.7 pg (26.0-34.0); MCHC 33.1 g/dL (31.0-37.0); MCV 77.7 fL (80.0-100.0); MEAN PLATELET VOLUME 11.5 fL (7.4-10.4); MONOCYTES 7.8 % (2-11); NEUTROPHILS 59.4 % (40-80); PLATELET COUNT 223 10x3/uL (130-400); RBC 4.04 10x6/uL (4.20-6.10); RDW 14.3 % (11.5-14.5); WBC 8.6 10x3/uL (4.8-10.8)
[2017-08-05 05:48] LABS: ANION GAP 11.5 mmol/L (8-16); CALCIUM 9.2 mg/dL (8.5-10.1); CARBON DIOXIDE 27.4 mmol/L (21.0-32.0); CREATININE - SERUM 1.2 mg/dL (0.6-1.3); POTASSIUM - SERUM 3.9 mmol/L (3.5-5.1)
[2017-08-05 06:10] VITALS: BP 143/77
[2017-08-05 07:49] VITALS: BP 184/83
[2017-08-05 11:23] VITALS: BP 121/61
[2017-08-05 16:45] VITALS: BP 149/61
[2017-08-05 21:11] VITALS: BP 156/72
[2017-08-06 01:27] VITALS: BP 165/76
[2017-08-06] MEDS ORDERED: PRAVASTATIN SOD10 MG PO (06:06)
[2017-08-06 06:56] LABS: BASOPHILS 0.1 % (0-2); EOSINOPHILS 3.6 % (0-7); HEMOGLOBIN 10.7 g/dL (13.5-17.5); IMMATURE GRANULOCYTES 0.1 % (0-5); LYMPHOCYTES 32.5 % (15-50); MCH 25.5 pg (26.0-34.0); MCHC 32.4 g/dL (31.0-37.0); MCV 78.8 fL (80.0-100.0); MEAN PLATELET VOLUME 11.9 fL (7.4-10.4); MONOCYTES 10.1 % (2-11); NEUTROPHILS 53.6 % (40-80); PLATELET COUNT 195 10x3/uL (130-400); RBC 4.19 10x6/uL (4.20-6.10); RDW 14.7 % (11.5-14.5); WBC 9.5 10x3/uL (4.8-10.8)
[2017-08-06 07:21] LABS: ANION GAP 18.5 mmol/L (8-16); CALCIUM 9.2 mg/dL (8.5-10.1); CARBON DIOXIDE 20.9 mmol/L (21.0-32.0); CREATININE - SERUM 1.3 mg/dL (0.6-1.3); POTASSIUM - SERUM 4.4 mmol/L (3.5-5.1)
[2017-08-06 08:07] VITALS: BP 162/77
[2017-08-06 15:25] VITALS: BP 145/75
[2017-08-06 20:58] VITALS: BP 158/65
[2017-08-07 05:19] VITALS: BP 199/106
[2017-08-07 05:36] LABS: BASOPHILS 0.1 % (0-2); EOSINOPHILS 2.8 % (0-7); HEMATOCRIT 32.6 % (42.0-54.0); HEMOGLOBIN 10.9 g/dL (13.5-17.5); IMMATURE GRANULOCYTES 0.2 % (0-5); LYMPHOCYTES 16.9 % (15-50); MCH 25.9 pg (26.0-34.0); MCHC 33.4 g/dL (31.0-37.0); MCV 77.4 fL (80.0-100.0); MEAN PLATELET VOLUME 12.1 fL (7.4-10.4); MONOCYTES 6.1 % (2-11); NEUTROPHILS 73.9 % (40-80); PLATELET COUNT 217 10x3/uL (130-400); RBC 4.21 10x6/uL (4.20-6.10); RDW 14.3 % (11.5-14.5); WBC 11.3 10x3/uL (4.8-10.8)
[2017-08-07 05:54] LABS: CALCIUM 9.3 mg/dL (8.5-10.1); CARBON DIOXIDE 24.8 mmol/L (21.0-32.0); CREATININE - SERUM 1.4 mg/dL (0.6-1.3)
[2017-08-07 05:55] LABS: POTASSIUM - SERUM 5.8 mmol/L (3.5-5.1)
[2017-08-07 12:25] VITALS: BP 160/66
[2017-08-07 16:18] VITALS: BP 150/71
[2017-08-07 20:50] VITALS: BP 191/82
[2017-08-08 01:45] VITALS: BP 165/75
[2017-08-08 07:01] VITALS: BP 163/76
[2017-08-08 09:25] VITALS: BP 145/63
[2017-08-08 12:43] VITALS: BP 149/67
[2017-08-08 13:16] LABS: ANION GAP 15.7 mmol/L (8-16); CALCIUM 9.3 mg/dL (8.5-10.1); CARBON DIOXIDE 24.2 mmol/L (21.0-32.0); CREATININE - SERUM 1.5 mg/dL (0.6-1.3)
[2017-08-08 13:17] LABS: POTASSIUM - SERUM 4.9 mmol/L (3.5-5.1)
[2017-08-08 17:32] VITALS: BP 159/69
[2017-08-08 20:00] VITALS: BP 162/72
[2017-08-09 00:30] VITALS: BP 152/68
[2017-08-09 04:30] VITALS: BP 150/72
[2017-08-09 08:41] VITALS: BP 146/74
[2017-08-09 11:43] VITALS: BP 105/64
[2017-08-09 22:33] VITALS: BP 158/68
[2017-08-10 04:40] VITALS: BP 183/66
[2017-08-10 07:52] VITALS: BP 146/75
[2017-08-10 11:33] VITALS: BP 147/65
[2017-08-10 15:36] VITALS: BP 142/50
[2017-08-10 21:44] VITALS: BP 136/67
[2017-08-11 04:47] VITALS: BP 142/71
[2017-08-11 06:03] LABS: HEMATOCRIT 33.9 % (42.0-54.0); HEMOGLOBIN 11.2 g/dL (13.5-17.5); MCH 25.7 pg (26.0-34.0); MCV 77.8 fL (80.0-100.0); MEAN PLATELET VOLUME 11.6 fL (7.4-10.4); RBC 4.36 10x6/uL (4.20-6.10); RDW 14.3 % (11.5-14.5); WBC 9.5 10x3/uL (4.8-10.8)
[2017-08-11 06:14] LABS: PLATELET COUNT 287 10x3/uL (130-400)
[2017-08-11 06:29] LABS: ANION GAP 16.8 mmol/L (8-16); CALCIUM 9.3 mg/dL (8.5-10.1); CARBON DIOXIDE 23.2 mmol/L (21.0-32.0); CREATININE - SERUM 1.3 mg/dL (0.6-1.3)
[2017-08-11 07:42] LABS: EOSINOPHILS 4 % (0-7); LYMPHOCYTES 30 % (15-50); MONOCYTES 12 % (2-11); NEUTROPHILS 53 % (40-80); PLATELET ESTIMATE NORMAL; ROULEAUX 1+
[2017-08-11 07:43] LABS: CRENATED CELLS OCC
[2017-08-11 07:57] VITALS: BP 185/88
[2017-08-11 11:18] VITALS: BP 178/80
[2017-08-11 15:38] VITALS: BP 142/70
[2017-08-11 21:03] VITALS: BP 157/59
[2017-08-12 08:35] VITALS: BP 138/88
[2017-08-12 11:40] VITALS: BP 134/72
[2017-08-12 15:34] VITALS: BP 128/86
[2017-08-12 19:00] VITALS: BP 151/74
[2017-08-13 04:00] VITALS: BP 156/61
[2017-08-13 08:04] VITALS: BP 152/70
[2017-08-13 11:34] VITALS: BP 114/62
[2017-08-13 15:37] VITALS: BP 138/61
[2017-08-13 21:26] VITALS: BP 155/67
[2017-08-14 01:29] VITALS: BP 182/65
[2017-08-14 07:58] VITALS: BP 149/69
[2017-08-14 11:24] VITALS: BP 128/62
[2017-08-14 15:35] VITALS: BP 139/61
[2017-08-14 21:27] VITALS: BP 162/56
[2017-08-15 01:46] VITALS: BP 158/71
[2017-08-15 05:40] VITALS: BP 150/57
[2017-08-15 08:10] VITALS: BP 169/59
[2017-08-15 11:23] VITALS: BP 166/62
[2017-08-15] MEDS ORDERED: THIAMINE HCL50 MG PO (13:17)
[2017-08-15] MEDS ORDERED: FOLIC ACID1 MG PO (13:17)
[2017-08-15] MEDS ORDERED: GEODON20 MG PO (13:25)
[2017-08-15] MEDS ORDERED: NAMENDA5 MG PO (13:25)
[2017-08-15 15:31] VITALS: BP 132/74
== END 2017-08-15 16:32 | disposition home or self-care (01) | DRG 884 ==
LOC: D.ER 10:08 → D.M2 12:10
PROVIDERS: Emergency Medicine; Family Medicine; Internal Medicine Nephrology
DX: F03.91 Unspecified dementia, unspecified severity, with behavioral disturbance (principal); F17.203 Nicotine dependence unspecified, with withdrawal; F05 Delirium due to known physiological condition; I25.10 Atherosclerotic heart disease of native coronary artery without angina pectoris; Z95.1 Presence of aortocoronary bypass graft; I11.0 Hypertensive heart disease with heart failure; I50.9 Heart failure, unspecified; E11.65 Type 2 diabetes mellitus with hyperglycemia; Z86.73 Personal history of transient ischemic attack (TIA), and cerebral infarction without residual deficits; F09 Unspecified mental disorder due to known physiological condition; F10.97 Alcohol use, unspecified with alcohol-induced persisting dementia; F06.8 Other specified mental disorders due to known physiological condition; Z91.83 Wandering in diseases classified elsewhere

== ENCOUNTER 2017-09-19 10:41 | Outpatient (CLI) | payer MEDICAID ==
[~2017-09-19] VITALS: Ht 180.3 cm; Wt 76.5 kg
--- NOTE | ~2017-09-19 | DS ---
PATIENT:FIDE ATWOOD :56 MEDICAL RECORD: [id number] DISCHARGE SUMMARY ADMISSION DATE: 09/19/17 DISCHARGE DATE: 09/20/17 DISCHARGE DIAGNOSES: 1. Angina. 2. Coronary artery disease. 3. Percutaneous transluminal coronary angioplasty stent to right coronary artery this admission. HOSPITAL COURSE: This is a gentleman who presents with anginal symptomatology, found to have significant disease to the RCA, underwent successful PTCA stent of the RCA. Discharged home with the addition of Plavix and aspirin to his medical regimen. He will follow up with [facility]. TRANSINT:[id number] Voice Confirmation ID: [id number] DOCUMENT ID: [id number] CLIFTON SANDOVAL MD CC: [id number] DICTATION DATE: 09/20/17 1038 BUDGET RECORD CLERK: 09/20/17 1232 DIS IN 09/20/17 [facility] [address] [place] [address]
--- NOTE | ~2017-09-19 | OP ---
PATIENT NAME: FIDE ATWOOD MEDICAL RECORD: [id number] :56 LOCATION:D.M2 D.2118 ADMISSION DATE:09/19/17 SURGEON: CLIFTON SANDOVAL MD DATE OF OPERATION: 09/19/2017 PROCEDURES: 1. PTCA stent, RCA. 2. Left heart catheterization. 3. Selective coronary angiography. 4. Left ventriculogram. 5. Vein graft angiography. 6. KWON angiography. INDICATION: Angina and coronary artery disease. PROCEDURE IN DETAIL: After informed consent was obtained and after a detailed explanation of the risks, benefits as well as alternative therapies, the patient elected to proceed with angiogram and angioplasty. The right femoral area is prepped and draped in normal sterile fashion. The right femoral artery was cannulated via modified Seldinger technique with placement of a 6-Irish sheath. All catheters exchanged through this sheath. FINDINGS: The left ventriculogram was performed in standard 30-degree BROWN view, reveals preserved cardiac wall motion, ejection fraction 55%-60%. SELECTIVE CORONARY ANGIOGRAPHY: 1. Left main is with no significant angiographic disease. 2. Left anterior descending is totally occluded. 3. Left circumflex has a ramus intermedius that is patent; however, the circumflex is totally occluded. 4. KWON to the LAD is widely patent. Distal LAD is widely patent. 5. Vein graft to the circumflex is widely patent. Distal circumflex is widely patent. 6. The right coronary has multiple areas of 70% to 80% stenosis. Vein graft to the right coronary is closed. PTCA STENT OF THE RIGHT CORONARY: Stents used were 3.0 x 12, 3.5 x 15, 3.5 x 18, all Integrity stents. Result was 0% residual stenosis. OVERALL IMPRESSION: Successful percutaneous transluminal coronary angioplasty stent of the right coronary artery going from multiple areas of 70%-80% initial stenosis to 0% residual. TRANSINT:[id number] Voice Confirmation ID: [id number] DOCUMENT ID: [id number] CLIFTON SANDOVAL MD CC: [id number] DICTATION DATE: 09/19/17 154 OWNER/PHOTOGRAPHER: 09/19/172101 ADM IN [id number] [place] [address]
--- NOTE | ~2017-09-19 | HEMODYNAMI ---
PATIENT:FIDE ATWOOD MEDICAL RECORD: [id number] : 56 LOCATION:[facility] ADMISSION DATE: 09/19/17 Generatedon:09/19/201715:43 Patient name: FIDE ATWOOD Patient #: [id number] SSN: : 1960 Date of study: 09/19/2017 Page: Of Hemodynamic Procedure Report Patient Data Patient Demographics Procedure consent was obtained First Name: FIDE Gender: Male Last Name: ANGELIC : 1960 [facility] Initial: L Age: 57 year(s) Patient #: [id number] Race: Black Additional ID: [id number] Contact details Address: [place] [address] State: [place] City: [facility] Zip code: [address] Past Medical History Allergies Allergen Reaction Date Comments Reported Other allergy 09/19/2017 MORPHINE Admission Admission Data Admission Date: 09/19/2017 Admission Time: 10:41 Lab Results Lab Result Date: 09/19/2017 Lab Result Time: 0:00 Biochemistry Name Units Result Min Max BUN mg/dl 25 --(----)-* 7 18 Creatinine mg/dl 1.6 --(----)-* 0.6 1.3 CBC Name Units Result Min Max Hemoglobin g/dl 11 *-(----)-- 13.5 17.5 Procedure Procedure Types Cath Procedure Diagnostic Procedure C [facility] w/Coronaries PCI Procedure Coronary Stent Coronary Stent Initial x2 Miscellaneous Procedures Moderate Sedation up to 15 minutes Procedure Description Procedure Date Procedure Date: 09/19/2017 Procedure Start Time: 15:22 Procedure End Time: 15:42 Procedure Staff Name Function Damien Hatch MD Performing Physician Nina Harris RT Monitor Emilia Syed RT Scrub Darrick Masters RN Nurse Procedure Data Cath Procedure Fluoroscopy Diagnostic fluoroscopy Total fluoroscopy Time: 5.3 time: 5.3 min min Diagnostic fluoroscopy Total fluoroscopy dose: 863 dose: 863 mGy mGy Contrast Material Contrast Material Type Amount (ml) Isovue 300 158 Entry Location Entry Primary Successful Side Size Upsize Upsize Entry Closure Succes sful Closure Location (Fr) 1 (Fr) 2 (Fr) Remarks Device Remarks Femoral Right 5 Fr 6 Fr Exoseal artery Short Estimated blood loss: 10 ml Diagnostic catheters Device Type Used For End Catheter Placement MULTIPACK Pigtail 5 Fr Procedure catheter MULTIPACK JL 4.0 5Fr Procedure catheter MULTIPACK 3DRC 5Fr Procedure catheter DIAGNOSTIC AR 2 MOD 5 Fr Procedure catheter ([id number]) Procedure Complications No complications Procedure Medications Medication Administration Route Dosage 0.9% NaCl I.V. 100 ml/hr Oxygen NC 2 l/min Heparin Flush Bag added to field 2 bags (1000units/500ml NS) Lidocaine 2% added to field 20 Versed I.V. 2 mg Fentanyl I.V. 100 mcg Heparin Bolus I.V. 4000 units Hemodynamics Rest HGB: 11 (g/dl) Heart Rate: 65 (bpm) Snapshots Pre Cath Intra NCS Post Cath Vital Signs Time Heart Resp SPO2 etCO2 NIBP (mmHg) Rhythm Pain Sedation Rate (ipm) (%) (mmHg) Status Level (bpm) 15:03:01 64 14 100 28.8 177/81(110) NSR 0 (11) 10(A) , No pain 15:07:47 64 16 100 32.6 151/66(94) NSR 0 (11) 10(A) , No pain 15:12:34 68 14 100 32.6 140/53(95) NSR 0 (11) 10(A) , No pain 15:17:15 78 17 100 32.6 146/64(105) NSR 0 (11) 10(A) , No pain 15:21:55 74 17 100 34.2 144/59(101) NSR 0 (11) 10(A) , No pain 15:26:38 73 19 100 32.6 141/70(103) NSR 0 (11) 10(A) , No pain 15:31:21 72 19 100 31.2 140/69(105) NSR 0 (11) 10(A) , No pain 15:36:03 70 19 100 32.7 144/65(104) NSR 0 (11) 10(A) , No pain 15:40:42 70 18 33.4 150/77(114) NSR 0 (11) 10(A) , No pain Medications Time Medication Route Dose Verified Delivered Reason Notes Effectiveness by by 15:02:27 0.9% NaCl I.V. 100 Darrick Darrick Per physician ml/hr Guerrero Masters RN RN 15:02:37 Oxygen NC 2 Darrick Darrick Per physician l/min Guerrero Masters RN RN 15:02:49 Heparin Flush added 2 Darrick Darrick used for Bag to bags Guerrero Masters procedure (1000units/500ml field RN RN NS) 15:03:03 Lidocaine 2% added 20ml Darrick Darrick for local to vial Guerrero Masters anesthetic field RN RN 15:12:07 Versed I.V. 2 mg Darrick Darrick for sedation Guerrero Masters RN RN 15:12:18 Fentanyl I.V. 100 Darrick Darrick for sedation mcg Guerrero Masters RN RN 15:34:04 Heparin Bolus I.V. 4000 Darrick Darrick for units Guerrero Masters anticoagulation RN feather separator Log Time Note 14:25:25 Emilia Counts RT(R) sent for patient. Start room use. 14:25:26 Time tracking: Regular hours 14:25:30 Plan of Care:Hemodynamics will remain stable., Cardiac rhythm will remain stable., Comfort level will be maintained., Respiratory function will remain adequate., Patient/ family verbilizes understanding of procedure., Procedure tolerated without complication., Recovers from procedure without complications.. 14:56:43 Patient received from ED to CCL 1 Alert and oriented. Tansferred to table in Supine position. 14:56:44 Warm blankets applied, and so hugger turned on for patient comfort. 14:56:44 Correct patient and procedure confirmed by team. 14:56:45 Signed procedure consent form obtained from patient. 14:56:46 ECG and BP/O2 sat monitors applied to patient. 14:56:49 Full Disclosure recording started 15:02:04 Vital chart was started 15:02:10 Baseline sample Acquired. 15:02:15 Rhythm: sinus rhythm 15:02:27 0.9% NaCl 100 ml/hr I.V. was administered by Darrick Masters RN; Per physician; 15:02:37 Oxygen 2 l/min NC was administered by Darrick Masters RN; Per physician; 15:02:49 Heparin Flush Bag (1000units/500ml NS) 2 bags added to field was administered by Darrick Masters RN; used for procedure; 15:02:50 Pre-procedure instructions explained to patient. 15:02:50 Pre-op teaching completed and patient verbalized understanding. 15:02:53 Family unavailable. 15:03:03 Lidocaine 2% 20ml vial added to field was administered by Darrick Masters RN; for local anesthetic; 15:04:11 Patient allergic to Other allergyMORPHINE 15:04:13 Is the patient allergic to Iodine/contrast media? No. 15:04:14 Is patient on blood thinner?Yes 15:04:17 ACC The patient was administered the following blood thiners within the last 24 hours: ACCPlavix 15:04:19 Patient diabetic? Yes. 15:04:20 If diabetic: On Metformin? Yes 15:04:24 Previous problem with sedation/anesthesia? No ? 15:04:24 Snore? Yes 15:04:25 Sleep apnea? No 15:04:26 Deviated septum? No 15:04:27 Opens mouth fully? Yes 15:04:28 Sticks out tongue? Yes 15:04:30 Airway obstruction? No ? 15:04:32 Dentures? No ? 15:04:36 Pre procedure: right dorsailis pedis pulse 2+ Normal; easily identifiable; not easily obliterated 15:04:39 Patient pain scale 0/10 ?. 15:04:44 IV patent on arrival in left forearm with 0.9% NaCl at [facility]. 15:05:12 Lab Result : BUN 25 mg/dl 15:05:12 Lab Result : Hemoglobin 11 g/dl 15:05:12 Lab Result : Creatinine 1.6 mg/dl 15:05:15 Lab results completed and on chart. 15:05:19 Right groin area was prepped with chlora-prep and draped in sterile fashion 15:05:20 Alarms reviewed by R. N. 15:05:20 Sharps counted by scrub and verified by R.N. 15:06:39 Use device set Femoral Dx 15:06:40 ACIST Syringe (85838) opened to sterile field. 15:06:40 Bag Decanter () opened to sterile field. 15:06:43 ACIST Hand Control (66381) opened to sterile field. 15:06:43 ACIST Manifold (04608) opened to sterile field. 15:06:45 Tegaderm 4 x 4 (1626W) opened to sterile field. 15:06:46 Medline Cath Pack ([id number]) opened to sterile field. 15:06:47 SHEATH 5FR Cascade (RXV750) opened to sterile field. 15:06:48 DIAGNOSTIC WIRE .035 260cm J wire (698652) opened to sterile field. 15:06:51 PERCUTANEOUS ENTRY 19GA needle opened to sterile field. 15:06:52 DIAGNOSTIC Multipack 5Fr catheter set ([id number]) opened to sterile field. 15:11:27 --------ALL STOP TIME OUT------ 15::28 Final Timeout: patient, procedure, and site verified with staff and physician. All members of the team are in agreement. 15:11:31 Right groin site verified by team. 15:11:34 Physical assessment completed. ASA score P 2 - A patient with mild systemic disease as per Damien Hatch MD. 15::42 Sedation plan: IV Moderate Sedation Medication:Versed, Fentanyl 15::50 Zero performed for pressure channel P1 15:12:07 Versed 2 mg I.V. was administered by Darrick Masters RN; for sedation; 15:12:18 Fentanyl 100 mcg I.V. was administered by Darrick Masters RN; for sedation; 15:22:14 Procedure started. 15:22:18 Local anesthetic to right femoral artery with Lidocaine 2% by Damien Hatch MD.INITIAL ACCESS ONLY 15:23:11 A 5 Fr sheath was inserted into the Right Femoral artery 15:23:23 A MULTIPACK Pigtail 5 Fr catheter was advanced over the wire and used for Procedure. 15:23:32 LV gram done using BROWN 15:23:36 Injector settings: Ml/sec: 10, Volume: 20, 15:23:52 EF : 60 % 15::53 Catheter removed. 15:23:57 A MULTIPACK JL 4.0 5Fr catheter was advanced over the wire and used for Procedure. 15:24:43 LCA angiography performed. 15:25:04 Catheter removed. 15:25:19 A MULTIPACK 3DRC 5Fr catheter was advanced over the wire and used for Procedure. 15:26:48 KWON to LAD angiography performed. 15::57 RCA angiography performed. 15:27:02 Catheter removed. 15:27:30 A DIAGNOSTIC AR 2 MOD 5 Fr catheter ([id number]) was advanced over the wire and used for Procedure. 15:28:11 SVG to Circ angiography performed. 15:28:29 SHEATH 6FR Cascade (LVM861) opened to sterile field. 15:28:34 INFLATOR Merit BasixCompak (BO0250) opened to sterile field. 15:30:28 Catheter removed. 15:31:10 Sheath upsized to a 6 Fr Short. 15:32:49 GUIDE 6FR HS II catheter ([id number]) opened to sterile field. 15:32:55 CHOICE PT Extra Support 182cm wire ([id number]) opened to sterile field. 15:33:07 6 Fr HS2 guide catheter was inserted over the wire 15:33:12 CHOICE PT wire advanced. 15:33:14 Wire advanced across lesion. 15:34:04 Heparin Bolus 4000 units I.V. was administered by Darrick Masters RN; for anticoagulation; 15:34:14 Inflation Number: 1 A INTEGRITY RX 3.0 x 12 stent ([id number]) was prepped and advanced across the Dist RCA. The stent was deployed at 21 MISTY for 0:10 (min:sec). 15:34:23 Stent catheter was removed intact over wire. 15:35:29 Inflation number: 1 A INTEGRITY RX 3.5 x 15 stent ([id number]) was prepped and advanced across the Mid RCA, then inflated to 17 MISTY for 0:10 (min:sec). 15:35:38 Stent catheter was removed intact over wire. 15:37:00 Inflation Number: 1 A INTEGRITY RX 3.5 x 18 stent ([id number]) was prepped and advanced across the Prox RCA. The stent was deployed at 17 MISTY for 0:10 (min:sec). 15:37:09 Stent catheter was removed intact over wire. 15:37:40 EXOSEAL 6Fr (EX600) opened to sterile field. 15:37:48 Wire removed. 15:37:50 Guide catheter removed. 15:38:03 Sheath removed intact; hemostasis achieved with Exoseal to the Right Femoral artery. 15:39:01 Procedure ended.(Physican Out) 15:39:14 Fluoroscopy time 05.30 minutes. 15:39:20 Fluoroscopy dose: 863 mGy 15:39:20 Flurop Dose total: 863 15:39:43 Contrast amount:Isovue 300 158ml. 15:39:44 Sharps counted by scrub and verified by R.N. 15:39:48 Insertion/operative site no bleeding no hematoma. 15:39:51 Post-op/insertion site Right Femoral artery dressed using a 4 x 4 and Tegaderm. 15:39:55 Post right femoral artery:stable, soft, clean and dry 15:40:06 Post procedure: right dorsailis pedis pulse 2+ Normal; easily identifiable; not easily obliterated. 15:40:11 Post-procedure physical assessment completed. ASA score P 2 - A patient with mild systemic disease as per Damien Hatch MD. 15:40:14 Post procedure rhythm: unchanged. 15:40:17 Estimated blood loss: 10 ml 15:40:18 Post procedure instruction explained to patient.Patient verbalizes understanding. 15:40:19 Patient needs reinforcement of post procedure teaching. 15:40:38 Procedure type changed to Cath procedure, Diagnostic procedure, LHC, LHC w/Coronaries, PCI procedure, Coronary Stent, Coronary Stent Initial x2, Miscellaneous Procedures, Moderate Sedation up to 15 minutes 15:42:26 Procedure and supply charges have been captured, reviewed, submitted and are correct. 15:42:30 Procedure Complication : No complications 15:42:33 Vital chart was stopped 15:42:34 See physician's report for complete and final results. 15:42:40 Report given to PCU. 15:42:42 Patient transfered to PCU with Bed. 15:42:43 Procedure ended. 15:42:43 Full Disclosure recording stopped 15:42:46 End room use (Document Last) Intervention Summary Intervention Notes Time ActionType Lesion and Equipment Action# Pressure Duration Attributes Used 15:34:14 Place stent Dist RCA INTEGRITY RX 1 21 00:10 3.0 x 12 stent ([id number]) 15:35:29 Inflate Mid RCA INTEGRITY RX 1 17 00:10 balloon 3.5 x 15 stent ([id number]) 15:37:00 Place stent Prox RCA INTEGRITY RX 1 17 00:10 3.5 x 18 stent ([id number]) Device Usage Item Name Manufacture Quantity Catalog Number Hospital Part Current Mini mal Lot# / Charge Number Stock Stock Serial# Code ACIST Acist 1 78462 759332 138900 829716 20 Syringe Medical (13957) Systems Inc Bag Decanter Microtek 1 2001S 905841 13241 751455 5 (2001S) Medical Inc. ACIST Hand Acist 1 33353 319045 915126 175037 5 Control Medical (44915) Systems Inc ACIST Acist 1 26924 647164 584871 350365 5 Manifold Medical (71851) Systems Inc Tegaderm 4 x 3M 1 1626W 047225 724006 103427 5 4 (1626W) Medline Cath Cardinal 1 [id number] 874637 91626 102935 5 Pack Health ([id number]) SHEATH 5FR Terumo 1 IYG667 763187 896899 136157 40 Cascade (TSR863) DIAGNOSTIC [facility] 1 308960 735657 897706 463235 30 WIRE .035 260cm J wire (283125) PERCUTANEOUS [facility] 1 M72076 192567 126848 5 ENTRY 19GA needle DIAGNOSTIC Cardinal 1 FG1009 592589 92517 290506 30 Multipack Health 5Fr catheter set (YH4654) MULTIPACK Cardinal 1 587953 5 Pigtail 5 Fr Health catheter MULTIPACK JL Cardinal 1 811141 5 4.0 5Fr Health catheter MULTIPACK Cardinal 1 024590 5 3DRC 5Fr Health catheter DIAGNOSTIC Cardinal 1 197928R 488570 807640 928332 20 AR 2 MOD 5 Health Fr catheter ([id number]) SHEATH 6FR Terumo 1 ONM851 811999 688724 123597 40 Cascade (CAS093) INFLATOR [facility] 1 ON8344 608659 301053 766093 15 [facility] Medical BasixCompak (UH7123) GUIDE 6FR HS Medtronic 1 [id number] 516457 98206 203296 1 II catheter (JN5UKUA) CHOICE PT [place] 1 [id number] 806629 004042 594462 5 Extra Scientific Support 182cm wire ([id number]) INTEGRITY RX Medtronic 1 [id number] 875283 346320 775301 5 [id number] 3.0 x 12 stent ([id number]) INTEGRITY RX Medtronic 1 [id number] 978413 886505 217618 5 [id number] 3.5 x 15 stent ([id number]) INTEGRITY RX Medtronic 1 [id number] 233464 903157 772723 5 [id number] 3.5 x 18 stent ([id number]) EXOSEAL 6Fr Cardinal 1 EX600 176196 584633 826165 10 (EX600) Health Signature Audit [place] Stage Time Signature Unsigned Intra-Procedure 09/19/2017 Nina Harris 3:43:16 PM RT(R) Signatures Monitor : Nina Harris Signature : RT Date : Time : [address] [address]
--- NOTE | ~2017-09-19 | CN ---
PATIENT NAME:FIDE ATWOOD MEDICAL RECORD: [id number] : 56 LOCATION:ER ADMIT DATE: ACCOUNT: [id number] CONSULTING PHYSICIAN: CLIFTON SANDOVAL MD REFERRING PHYSICIAN: TYRELL MOORE MD DATE OF CONSULTATION: 09/19/2017 DIAGNOSES: 1. Unstable angina. 2. Abnormal ECG. 3. Anemia. 4. Renal insufficiency. HISTORY OF PRESENT ILLNESS: This is a gentleman who presents with anginal symptomatology, found to have mildly elevated troponin and T-wave inversion on the lateral leads on his EKG. He has been having episodes of chest pain for quite some time. They have been worsening. He has not had a previous cardiac workup. PHYSICAL EXAMINATION: GENERAL APPEARANCE: Well-nourished, well-developed, appears stated age. Level of distress, comfortable. PSYCHIATRIC: Mental status, alert, normal affect. Orientation, oriented to time, place and person. EYES: Lids and conjunctiva, noninjected. No discharge, no pallor. ENT: Lips, teeth, gums, normal dentition. Oropharynx, no cyanosis, no pallor. NECK: Carotid arteries, bilateral normal upstroke, no bruits, no thrills. JUGULAR VEINS: No jugular venous pressure or distention. CERVICAL LYMPH NODES: Nontender, nonenlarged. THYROID: Not enlarged. Nontender. No nodules. LUNGS: Respiratory effort, unlabored. CHEST: Normal curvature. No thoracic deformity. No chest wall tenderness. Percussion, resonant. Auscultation, clear. No wheezes, no rales, no rhonchi. CARDIOVASCULAR: Precordial exam, nondisplaced. No heaves or pericardial thrills. Rate and rhythm, regular. Heart sounds, normal S1, normal S2. No S3, no gallop, no rub. Systolic murmur, not heard. Diastolic murmur, not heard. EXTREMITIES: No cyanosis, no edema. Peripheral pulses, full and equal in all extremities, except as noted. No bruits appreciated. ABDOMEN: Soft, nondistended. Normal aorta. No bruit. Nontender. No masses. Liver, nontender, no hepatomegaly. Spleen, nontender, no splenomegaly. MUSCULOSKELETAL: No joint tenderness. No joint swelling. No erythema. NEUROLOGICAL: Normal gait, normal strength, normal tone. SKIN: Warm and dry. REVIEW OF SYSTEMS: The patient reports easy bruising but reports no swollen glands. The patient reports no fever, no night sweats, no significant weight gain, no significant weight loss. No significant exercise tolerance. The patient reports no dry eyes, no irritation, no vision change. Patient reports no difficulty hearing and no ear pain. Patient reports no frequent nose bleeds or nose and sinus problems. Patient reports on arm pain on exertion. No shortness of breath while lying down. No history of heart murmur. Patient reports no cough, no wheezing or coughing up blood. Patient reports no abdominal pain, no vomiting. Normal appetite. No diarrhea and not vomiting blood. No nausea and no constipation. Patient reports no incontinence. No difficulty urinating. No hematuria. No increased frequency. Patient reports CONSULT REPORT [id number] HONEY,FIDE L no muscle aches. No weakness, no arthralgias, no back pain. No swelling of the extremities. Patient reports no abnormal mole, no jaundice, no rashes. Reports no loss of consciousness. No weakness and no numbness. No seizures, dizziness, or headaches. The patient reports no depression, no sleep disturbance, feeling safe in a relationship and no alcohol abuse. Patient reports on fatigue. Reports no runny nose or sinus pressure. No itching, no hives, and no frequent sneezing. OVERALL IMPRESSION: Anginal symptomatology with elevated troponin, abnormal ECG. He does have hypertension and hyperlipidemia. We will proceed with coronary angiography. Further care depends upon findings of the angiography. TRANSINT:[id number] Voice Confirmation ID: [id number] DOCUMENT ID: [id number] CLIFTON SANDOVAL MD CC: [id number] DICTATION DATE: 09/19/171226 INFORMATION TECHNOLOGY PROGRAM MANAGER: 09/19/17 [address] [facility] [address] [id number]
[~2017-09-19 10:41] MED LIST changes: +FOLIC ACID1 MG PO; +GEODON20 MG PO; +NAMENDA5 MG PO; +PRAVASTATIN SOD10 MG PO; +THIAMINE HCL50 MG PO
[2017-09-19 10:57] LABS: APPEARANCE CLEAR (CLEAR); BILIRUBIN NEGATIVE (NEGATIVE); COLOR STRAW (YELLOW); GLUCOSE 1000 mg/dL (NEGATIVE); KETONE NEGATIVE (NEGATIVE); NITRITE NEGATIVE (NEGATIVE); PROTEIN NEGATIVE (NEGATIVE); UROBILINOGEN NORMAL (NORMAL)
[2017-09-19 11:12] LABS: BASOPHILS 0.2 % (0-2); HEMATOCRIT 33.6 % (42.0-54.0); IMMATURE GRANULOCYTES 0.2 % (0-5); MCH 25.3 pg (26.0-34.0); MCHC 32.7 g/dL (31.0-37.0); MCV 77.2 fL (80.0-100.0); MEAN PLATELET VOLUME 12.2 fL (7.4-10.4); MONOCYTES 7.2 % (2-11); NEUTROPHILS 72.4 % (40-80); PLATELET COUNT 242 10x3/uL (130-400); RBC 4.35 10x6/uL (4.20-6.10); RDW 15.2 % (11.5-14.5); WBC 12.6 10x3/uL (4.8-10.8)
[2017-09-19 11:52] LABS: ALBUMIN 3.4 g/dL (3.4-5.0); ALKALINE PHOSPHATASE 180 U/L (46-116); ALT (SGPT) 20 U/L (10-68); BILIRUBIN - TOTAL 0.23 mg/dL (0.2-1.3); CALC OSMOLALITY 297 mosm/kg (275-300); CALCIUM 8.9 mg/dL (8.5-10.1); CARBON DIOXIDE 22.2 mmol/L (21.0-32.0); CHLORIDE - SERUM 106 mmol/L (98-107); CREATININE - SERUM 1.6 mg/dL (0.6-1.3); POTASSIUM - SERUM 4.9 mmol/L (3.5-5.1); PROTEIN - SERUM 7.6 g/dL (6.4-8.2); SODIUM 139 mmol/L (136-145); UREA NITROGEN 25 mg/dL (7-18); eGFR NON AFRICAN AMERICAN 47 mL/min (90-120)
[2017-09-19 11:53] LABS: GLUCOSE 387 mg/dL (74-106)
[2017-09-19 12:07] LABS: CKMB 0.6 U/L (0.0-3.6); CREATINE KINASE 73 UL (21-232); PRO BNP 252 pg/mL (0-125)
[2017-09-19 12:08] LABS: TROPONIN-I 0.521 ng/mL (0.000-0.060)
[2017-09-19 16:15] VITALS: BP 160/74; Ht 180.3 cm; Wt 76.5 kg
[2017-09-19 21:11] VITALS: BP 161/86
[2017-09-20 04:27] VITALS: BP 163/55
[2017-09-20 08:37] VITALS: BP 193/104
[2017-09-20] MEDS ORDERED: NORVASC10 MG PO (09:17)
[2017-09-20] MEDS ORDERED: GLUCOPHAGE1000 MG PO (09:21)
[2017-09-20] MEDS ORDERED: ASPIRIN81 MG PO (11:45)
[2017-09-20] MEDS ORDERED: PLAVIX75 MG PO (11:45)
== END 2017-09-20 12:03 | disposition home or self-care (01) ==
LOC: OBSVTIME → D.ER 10:41 → D.CATH 10:41 → EDSTATUS 14:30 → D.M2 15:13 → OBSVTIME 15:13 → D.M2 15:13 → D.ER 15:13 → D.CATH 09-20 12:03 → D.M2 09-20 12:03
PROVIDERS: Family Medicine
DX: I25.110 Atherosclerotic heart disease of native coronary artery with unstable angina pectoris (principal); R94.31 Abnormal electrocardiogram [ECG] [EKG]; D64.9 Anemia, unspecified; N28.9 Disorder of kidney and ureter, unspecified; Z01.812 Encounter for preprocedural laboratory examination

== ENCOUNTER 2017-09-22 11:31 | Emergency (ER) | payer MEDICAID ==
[2017-09-19 16:15] VITALS: BMI 25.1
[~2017-09-22 11:31] MED LIST changes: +ASPIRIN81 MG PO
[2017-09-22 13:57] LABS: BASOPHILS 0 % (0-2); EOSINOPHILS 1.2 % (0-7); HEMATOCRIT 32.3 % (42.0-54.0); HEMOGLOBIN 10.7 g/dL (13.5-17.5); IMMATURE GRANULOCYTES 0.2 % (0-5); LYMPHOCYTES 21.9 % (15-50); MCH 24.8 pg (26.0-34.0); MCHC 33.1 g/dL (31.0-37.0); MCV 74.9 fL (80.0-100.0); MEAN PLATELET VOLUME 12.5 fL (7.4-10.4); MONOCYTES 5.3 % (2-11); NEUTROPHILS 71.4 % (40-80); PLATELET COUNT 258 10x3/uL (130-400); RBC 4.31 10x6/uL (4.20-6.10); RDW 14.5 % (11.5-14.5); WBC 10.9 10x3/uL (4.8-10.8)
[2017-09-22 14:06] LABS: KETONE - SERUM NEGATIVE (NEGATIVE)
[2017-09-22 14:10] LABS: INR 0.99 (0.85-1.17); PROTIME 12.7 SECONDS (11.6-15.0)
[2017-09-22 14:32] LABS: ALBUMIN 3.4 g/dL (3.4-5.0); ALKALINE PHOSPHATASE 172 U/L (46-116); ALT (SGPT) 19 U/L (10-68); BILIRUBIN - TOTAL 0.17 mg/dL (0.2-1.3); CALCIUM 9.3 mg/dL (8.5-10.1); CARBON DIOXIDE 24.4 mmol/L (21.0-32.0); CHLORIDE - SERUM 100 mmol/L (98-107); CREATINE KINASE 105 UL (21-232); CREATININE - SERUM 1.5 mg/dL (0.6-1.3); MAGNESIUM - SERUM 1.8 mg/dL (1.8-2.4); POTASSIUM - SERUM 5.3 mmol/L (3.5-5.1); PRO BNP 754 pg/mL (0-125); PROTEIN - SERUM 8.1 g/dL (6.4-8.2); SODIUM 132 mmol/L (136-145); UREA NITROGEN 20 mg/dL (7-18); eGFR NON AFRICAN AMERICAN 51 mL/min (90-120)
[2017-09-22 14:38] LABS: CALC OSMOLALITY 286 mosm/kg (275-300); GLUCOSE 441 mg/dL (74-106); TROPONIN-I 0.566 ng/mL (0.000-0.060)
== END 2017-09-22 16:08 | disposition home or self-care (01) ==
LOC: D.ER 11:31
PROVIDERS: Nurse Practitioner Family
DX: F41.9 Anxiety disorder, unspecified (principal); F39 Unspecified mood [affective] disorder; G47.00 Insomnia, unspecified; E11.9 Type 2 diabetes mellitus without complications

== ENCOUNTER 2017-09-28 20:03 | Observation (INO) | payer MEDICAID ==
[~2017-09-28] VITALS: Ht 180.3 cm; Wt 75.0 kg
[2017-09-28 20:26] LABS: APPEARANCE CLEAR (CLEAR); BILIRUBIN NEGATIVE (NEGATIVE); COLOR STRAW (YELLOW); GLUCOSE 1000 mg/dL (NEGATIVE); KETONE NEGATIVE (NEGATIVE); NITRITE NEGATIVE (NEGATIVE); PROTEIN NEGATIVE (NEGATIVE); UROBILINOGEN NORMAL (NORMAL)
[2017-09-28 20:51] LABS: BASOPHILS 0.2 % (0-2); EOSINOPHILS 1.2 % (0-7); HEMATOCRIT 34.1 % (42.0-54.0); HEMOGLOBIN 11.4 g/dL (13.5-17.5); IMMATURE GRANULOCYTES 0.1 % (0-5); LYMPHOCYTES 26.5 % (15-50); MCH 25.1 pg (26.0-34.0); MCHC 33.4 g/dL (31.0-37.0); MCV 74.9 fL (80.0-100.0); MEAN PLATELET VOLUME 12.1 fL (7.4-10.4); MONOCYTES 6.8 % (2-11); NEUTROPHILS 65.2 % (40-80); PLATELET COUNT 260 10x3/uL (130-400); RBC 4.55 10x6/uL (4.20-6.10); RDW 14.8 % (11.5-14.5); WBC 10.7 10x3/uL (4.8-10.8)
[2017-09-28 21:14] LABS: UDS - AMPHET NEGATIVE QUAL (NEGATIVE); UDS - BARB NEGATIVE QUAL (NEGATIVE); UDS - BENZO NEGATIVE QUAL (NEGATIVE); UDS - COCAINE NEGATIVE QUAL (NEGATIVE); UDS - OPIATE NEGATIVE QUAL (NEGATIVE); UDS - PCP NEGATIVE QUAL (NEGATIVE); UDS - THC NEGATIVE QUAL (NEGATIVE)
[2017-09-28 21:27] LABS: ALBUMIN 3.5 g/dL (3.4-5.0); ANION GAP 14.3 mmol/L (8-16); BILIRUBIN - TOTAL 0.15 mg/dL (0.2-1.3); CALCIUM 9.5 mg/dL (8.5-10.1); CARBON DIOXIDE 26.2 mmol/L (21.0-32.0); CREATININE - SERUM 1.5 mg/dL (0.6-1.3); POTASSIUM - SERUM 5.5 mmol/L (3.5-5.1); PROTEIN - SERUM 8.3 g/dL (6.4-8.2)
[2017-09-28 21:30] LABS: TROPONIN-I 0.602 ng/mL (0.000-0.060)
[2017-09-29 02:42] LABS: CREATINE KINASE 66 UL (21-232)
[2017-09-29 02:43] LABS: TROPONIN-I 0.568 ng/mL (0.000-0.060)
[2017-09-29 03:20] VITALS: BP 157/70; BMI 23.0
[2017-09-29 07:22] VITALS: Ht 180.3 cm; Wt 75.0 kg
[2017-09-29 07:44] VITALS: BP 174/79
[2017-09-29 08:17] LABS: BASOPHILS 0.1 % (0-2); HEMATOCRIT 31.8 % (42.0-54.0); HEMOGLOBIN 10.7 g/dL (13.5-17.5); IMMATURE GRANULOCYTES 0.1 % (0-5); LYMPHOCYTES 29.9 % (15-50); MCH 24.9 pg (26.0-34.0); MCHC 33.6 g/dL (31.0-37.0); MEAN PLATELET VOLUME 11.9 fL (7.4-10.4); MONOCYTES 6.5 % (2-11); NEUTROPHILS 61.4 % (40-80); PLATELET COUNT 210 10x3/uL (130-400); RDW 14.7 % (11.5-14.5)
[2017-09-29 08:19] LABS: WBC 7.9 10x3/uL (4.8-10.8)
[2017-09-29 08:57] LABS: CALCIUM 8.9 mg/dL (8.5-10.1); CARBON DIOXIDE 25.3 mmol/L (21.0-32.0); CHLORIDE - SERUM 103 mmol/L (98-107); CREATINE KINASE 74 UL (21-232); CREATININE - SERUM 1.2 mg/dL (0.6-1.3); MAGNESIUM - SERUM 1.5 mg/dL (1.8-2.4); SODIUM 137 mmol/L (136-145); eGFR NON AFRICAN AMERICAN 66 mL/min (90-120)
[2017-09-29 08:58] LABS: CALC OSMOLALITY 282 mosm/kg (275-300); GLUCOSE 201 mg/dL (74-106); TROPONIN-I 0.591 ng/mL (0.000-0.060); UREA NITROGEN 20 mg/dL (7-18)
== END 2017-09-29 11:20 | disposition home or self-care (01) ==
LOC: D.ER 20:03 → D.M2 09-29 01:41 → OBSVTIME 09-29 01:41 → D.EDHOLD 09-29 01:41 → D.M2 09-29 02:07
PROVIDERS: Family Medicine
DX: R79.89 Other specified abnormal findings of blood chemistry (principal); E86.0 Dehydration; F31.9 Bipolar disorder, unspecified; F09 Unspecified mental disorder due to known physiological condition; I25.10 Atherosclerotic heart disease of native coronary artery without angina pectoris; Z95.5 Presence of coronary angioplasty implant and graft; I10 Essential (primary) hypertension; E11.65 Type 2 diabetes mellitus with hyperglycemia; Z91.14 Patient's other noncompliance with medication regimen; Z86.73 Personal history of transient ischemic attack (TIA), and cerebral infarction without residual deficits; Z72.0 Tobacco use

== ENCOUNTER 2017-10-05 02:00 | Emergency (ER) | payer MEDICAID ==
[2017-09-29 07:22] VITALS: BMI 23.0
[2017-10-05 02:35] LABS: BASOPHILS 0.2 % (0-2); EOSINOPHILS 1.4 % (0-7); HEMOGLOBIN 11.3 g/dL (13.5-17.5); IMMATURE GRANULOCYTES 0.3 % (0-5); KETONE - SERUM NEGATIVE (NEGATIVE); LYMPHOCYTES 22.1 % (15-50); MCH 25.1 pg (26.0-34.0); MCHC 33.2 g/dL (31.0-37.0); MCV 75.6 fL (80.0-100.0); MONOCYTES 6.2 % (2-11); NEUTROPHILS 69.8 % (40-80); WBC 11.2 10x3/uL (4.8-10.8)
[2017-10-05 02:36] LABS: PLATELET COUNT 128 10x3/uL (130-400)
[2017-10-05 02:43] LABS: ALBUMIN 3.6 g/dL (3.4-5.0); ALKALINE PHOSPHATASE 161 U/L (46-116); ALT (SGPT) 23 U/L (10-68); CALC OSMOLALITY 291 mosm/kg (275-300); CALCIUM 8.8 mg/dL (8.5-10.1); CARBON DIOXIDE 26.5 mmol/L (21.0-32.0); CHLORIDE - SERUM 100 mmol/L (98-107); CREATININE - SERUM 1.5 mg/dL (0.6-1.3); POTASSIUM - SERUM 5.3 mmol/L (3.5-5.1); PROTEIN - SERUM 8.5 g/dL (6.4-8.2); SODIUM 136 mmol/L (136-145); UREA NITROGEN 28 mg/dL (7-18); eGFR NON AFRICAN AMERICAN 51 mL/min (90-120)
[2017-10-05 02:44] LABS: GLUCOSE 342 mg/dL (74-106)
[2017-10-05 02:52] LABS: THYROID STIMULATING HORMONE 4.35 uIU/mL (0.36-3.74)
[2017-10-05 03:23] LABS: UDS - AMPHET NEGATIVE QUAL (NEGATIVE); UDS - BARB NEGATIVE QUAL (NEGATIVE); UDS - BENZO NEGATIVE QUAL (NEGATIVE); UDS - COCAINE NEGATIVE QUAL (NEGATIVE); UDS - OPIATE NEGATIVE QUAL (NEGATIVE); UDS - PCP NEGATIVE QUAL (NEGATIVE); UDS - THC NEGATIVE QUAL (NEGATIVE)
[2017-10-05 03:26] LABS: APPEARANCE CLEAR (CLEAR); BILIRUBIN NEGATIVE (NEGATIVE); COLOR YELLOW (YELLOW); GLUCOSE 1000 mg/dL (NEGATIVE); KETONE NEGATIVE (NEGATIVE); NITRITE NEGATIVE (NEGATIVE); PROTEIN 1+ mg/dL (NEGATIVE); SPECIFIC GRAVITY 1.015 (1.005-1.020); UROBILINOGEN NORMAL (NORMAL)
[2017-10-05 03:28] LABS: BACTERIA FEW /hpf (NONE SEEN); EPITHELIAL CELLS 0-5 /hpf (0-5); RED CELLS - URINE 0-5 /hpf (0-5); WHITE CELLS - URINE NSEEN /hpf (0-5)
== END 2017-10-05 07:50 | disposition home or self-care (01) ==
LOC: D.ER 02:00
PROVIDERS: Emergency Medicine
DX: F20.89 Other schizophrenia (principal); I12.9 Hypertensive chronic kidney disease with stage 1 through stage 4 chronic kidney disease, or unspecified chronic kidney disease; N18.9 Chronic kidney disease, unspecified; E87.5 Hyperkalemia; E11.9 Type 2 diabetes mellitus without complications; Z79.4 Long term (current) use of insulin

== ENCOUNTER 2017-10-08 22:04 | Emergency (ER) | payer MEDICAID ==
[2017-09-29 07:22] VITALS: BMI 23.0
[2017-10-08 22:39] LABS: APPEARANCE CLEAR (CLEAR); BILIRUBIN NEGATIVE (NEGATIVE); COLOR STRAW (YELLOW); GLUCOSE 1000 mg/dL (NEGATIVE); KETONE NEGATIVE (NEGATIVE); NITRITE NEGATIVE (NEGATIVE); PROTEIN NEGATIVE (NEGATIVE); UROBILINOGEN NORMAL (NORMAL)
[2017-10-08 22:41] LABS: BACTERIA FEW /hpf (NONE SEEN); RED CELLS - URINE OCC /hpf (0-5)
[2017-10-08 22:59] LABS: BASOPHILS 0.1 % (0-2); EOSINOPHILS 1.8 % (0-7); HEMATOCRIT 29.3 % (42.0-54.0); HEMOGLOBIN 9.5 g/dL (13.5-17.5); IMMATURE GRANULOCYTES 0.2 % (0-5); LYMPHOCYTES 19.1 % (15-50); MCH 24.8 pg (26.0-34.0); MCHC 32.4 g/dL (31.0-37.0); MCV 76.5 fL (80.0-100.0); MONOCYTES 6.3 % (2-11); NEUTROPHILS 72.5 % (40-80); PLATELET COUNT 126 10x3/uL (130-400); RBC 3.83 10x6/uL (4.20-6.10); RDW 15.3 % (11.5-14.5); WBC 10.6 10x3/uL (4.8-10.8)
[2017-10-08 23:09] LABS: ALBUMIN 3.3 g/dL (3.4-5.0); ALKALINE PHOSPHATASE 192 U/L (46-116); ALT (SGPT) 22 U/L (10-68); CALCIUM 8.7 mg/dL (8.5-10.1); CARBON DIOXIDE 20.3 mmol/L (21.0-32.0); CHLORIDE - SERUM 100 mmol/L (98-107); CREATININE - SERUM 1.5 mg/dL (0.6-1.3); POTASSIUM - SERUM 4.3 mmol/L (3.5-5.1); PROTEIN - SERUM 7.7 g/dL (6.4-8.2); SODIUM 134 mmol/L (136-145); UREA NITROGEN 24 mg/dL (7-18); eGFR NON AFRICAN AMERICAN 51 mL/min (90-120)
[2017-10-08 23:13] LABS: CALC OSMOLALITY 295 mosm/kg (275-300)
[2017-10-08 23:14] LABS: GLUCOSE 537 mg/dL (74-106); KETONE - SERUM NEGATIVE (NEGATIVE)
== END 2017-10-09 00:25 | disposition home or self-care (01) ==
LOC: D.ER 22:04
PROVIDERS: Physician Assistant Medical
DX: E86.0 Dehydration (principal); E11.65 Type 2 diabetes mellitus with hyperglycemia; I12.9 Hypertensive chronic kidney disease with stage 1 through stage 4 chronic kidney disease, or unspecified chronic kidney disease; N18.9 Chronic kidney disease, unspecified